=== PATIENT | female | born 1965 | race Caucasian/White ===

== ENCOUNTER 2016-09-19 18:03 | Emergency (ER) | payer MEDICAID ==
[2016-09-19] MEDS ORDERED: PROMETHAZINE INJ 25 MG in SODIUM CHLORIDE 0.9% 50 ML IV STA (18:30)
[2016-09-19] MEDS ORDERED: SODIUM CHLORIDE 0.9% 1,000 ML IV ONE ×2 (18:30→18:51)
[2016-09-19] MEDS ORDERED: KETOROLAC 30 MG/ML VIAL IVP STA (18:30)
[2016-09-19] MEDS ORDERED: PROMETHAZINE 25 MG/1 ML VIAL ONE (18:51)
[2016-09-19] MEDS ORDERED: SODIUM CHLORIDE 0.9% 50 ML IV ONE (18:51)
[2016-09-19] MEDS ORDERED: KETOROLAC 30 MG/ML VIAL ONE (18:51)
== END 2016-09-19 20:24 | disposition home or self-care (01) ==
DX: R51 Headache (principal); R11.0 Nausea; R09.81 Nasal congestion; R03.0 Elevated blood-pressure reading, without diagnosis of hypertension; F17.200 Nicotine dependence, unspecified, uncomplicated
CPT/HCPCS: 36415; 80048; 83605; 85025; 96365; 96375; 99283; 99284; J7040

== ENCOUNTER 2016-10-19 08:00 | Outpatient (CLI) | payer MEDICAID | END 2016-10-19 08:01 | disposition home or self-care (01) | DX: R30.0 Dysuria (principal) ==

== ENCOUNTER 2016-10-25 10:04 | Outpatient (CLI) | payer MEDICAID | END 2016-10-25 10:05 | disposition home or self-care (01) | DX: E07.9 Disorder of thyroid, unspecified (principal); Z13.220 Encounter for screening for lipoid disorders; R30.0 Dysuria ==

== ENCOUNTER 2016-12-29 11:58 | Outpatient (CLI) | payer MEDICAID | END 2016-12-29 11:59 | disposition home or self-care (01) | LOC: SC 11:58 | PROVIDERS: ATTEND Nurse Practitioner Family | DX: G47.33 Obstructive sleep apnea (adult) (pediatric) (principal) | CPT/HCPCS: 99212; 99214 ==

== ENCOUNTER 2017-03-17 13:24 | Outpatient (CLI) | payer MEDICAID | END 2017-03-17 13:25 | disposition home or self-care (01) | LOC: SC 13:24 | PROVIDERS: ATTEND Nurse Practitioner Family | DX: G47.33 Obstructive sleep apnea (adult) (pediatric) (principal) | CPT/HCPCS: 99212; 99215 ==

== ENCOUNTER 2017-03-23 16:05 | Outpatient (CLI) | payer MEDICAID ==
--- NOTE | 2017-03-24 09:15 | XRAY Report ---
THREE-VIEW THORACIC SPINE: 03/23/2017 CLINICAL INDICATION: Pain. FINDINGS: AP, lateral, swimmer's views of the thoracic spine demonstrate mild degenerative disk dise ase. There is no evidence of fracture. No paraspinal hematoma is seen. IMPRESSION: MILD DEGENERATIVE DISK DISEASE. JOB #: [id number] EXT JOB #:[id number]
--- NOTE | 2017-03-24 09:30 | MRI Report ---
EXAM: MRI THORACIC SPINE WITHOUT CONTRAST EXAM DATE: 03/23/2017 04:57 PM. CLINICAL HISTORY: Thoracic pain when carrying heavy object. COMPARISONS: None. TECHNIQUE: Multiplanar, multisequence T1-weighted and fluid-sensitive sequences of the thoracic spine from C7 to L1 without contrast. Other: None. FINDINGS: Spinal Cord: No signal abnormality in the visualized spinal cord. Alignment: Normal. No scoliosis or spondylolisthesis. Bone Marrow: Small vertebral hemangiomas in T6 and T10 with T1 hyperintensity. No suspicious bony les ion. No fracture or marrow edema. Disk Levels/Facets: C7-T1: Unremarkable. T1-T2: Unremarkable. T2-T3: Unremarkable. T3-T4: Unremarkable. T4-T5: Unremarkable. T5-T6: Unremarkable. T6-T7: Unremarkable. T7-T8: Unremarkable. T8-T9: Unremarkable. T9-T10: Unremarkable. T10-T11: Unremarkable. T11-T12: Unremarkable. T12-L1: Unremarkable. Multiple small foraminal nerve sheath cysts at T4-T5, T6-T7, T9-T10, and bilateral T10-T11 and T11-T1 2. Musculature: Normal. No edema or fatty atrophy. Other: The visualized lungs, mediastinum, and abdominal cavity are unremarkable. IMPRESSION: 1. No fracture, marrow edema or suspicious bony lesion. 2. No disk herniation. No spinal or foraminal stenosis. 3. Multiple small foraminal nerve sheath cysts. [facility] Referring Provider Line: [phone] SITE ID: [id number]
== END 2017-03-23 16:06 | disposition home or self-care (01) ==
LOC: DI 16:05
PROVIDERS: ATTEND Anesthesiology Pain Medicine
DX: M51.34 Other intervertebral disc degeneration, thoracic region (principal)
CPT/HCPCS: 72072; 72146

== ENCOUNTER 2017-05-04 17:12 | Outpatient (CLI) | payer MEDICAID ==
[2017-05-04 17:47] LABS: CHOL/HDL RATIO 3.6 (<4.4); CHOLESTEROL 207 mg/dL; HDL CHOLESTEROL 57 mg/dL; LDL/HDL RATIO 2.4 (<4.4); TRIGLYCERIDES 79 mg/dL; VLDL CHOLESTEROL 16 mg/dL
[2017-05-04 17:59] LABS: THYROID STIMULATING HORMONE 1.37 uIU/mL (0.34-5.60)
== END 2017-05-04 17:13 | disposition home or self-care (01) ==
LOC: LAB 17:12
PROVIDERS: ATTEND Nurse Practitioner Family
DX: E78.5 Hyperlipidemia, unspecified (principal); E07.9 Disorder of thyroid, unspecified
CPT/HCPCS: 36415; 80061; 84439; 84443

== ENCOUNTER 2017-05-07 18:13 | Emergency (ER) | payer MEDICAID ==
[2017-05-07 18:41] LABS: BILIRUBIN,URINE NEGATIVE (NEGATIVE); PH,URINE 5.5 PH (5.0-7.5)
[2017-05-07 18:48] LABS: UA CHARGE (STRIP ONLY) YES; UR CULTURE IF IND NOT INDICATED
[2017-05-07] MEDS ORDERED: cephALEXin 250 MG CAPSULE PO STA (19:22)
--- NOTE | 2017-05-07 19:24 | ED Physician Documentation ---
History of Present Illness - Stated complaint Stated Complaint: FEMALE - Chief complaint Chief Complaint: General - History obtained from History obtained from: Patient, Family - History of Present Illness Timing: How many days ago (2) Pain level max: 0 Pain level now: 0 Improved by: nothing Worsened by: urinating - Additonal information Additional information: dysuria, frequency for 2 days. States feels like prior UTI. history of bladder sling in the past. Review of Systems Ten Systems: 10 systems reviewed and negative Constitutional: denies: Fever, Chills Ears: denies: Ear pain Nose: denies: Rhinorrhea / runny nose, Congestion Throat: denies: Sore throat Cardiac: denies: Chest pain / pressure Respiratory: denies: Cough GI: denies: Abdominal Pain, Nausea, Vomiting, Diarrhea Skin: denies: Rash Musculoskeletal: denies: Neck pain, Back pain Neurologic: denies: Headache PD PAST MEDICAL HISTORY - Past Medical History Past Medical History: Yes Cardiovascular: Hypertension Respiratory: Other Neuro: Headache/migraine Endocrine/Autoimmune: HyPOthyroidism GI: None 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 : 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 HEENT: Macular degeneration Psych: Depression, Anxiety, Bipolar disorder Musculoskeletal: Fibromyalgia, Osteoporosis Derm: None - Past Surgical History Past Surgical History: Yes General: Cholecystectomy Ortho: Carpal Tunnel surgery /LABORER PIPELINES: Hysterectomy, Oophrectomy, Mastectomy HEENT: Tonsil/Adenoidectomy - Present Medications Home Medications: Ambulatory Orders Medication Instructions Recorded Confirmed Potassium Chloride [K-Dur] 20 meq PO DAILY 12/07/12 05/07/17 Albuterol Sulfate [Proair Hfa] 2 puffs INH Q4H PRN 07/14/15 05/07/17 Dextroamphetamine/Amphetamine 30 mg PO DAILY 07/14/15 05/07/17 [Adderall Xr 30 mg Capsule] EPINEPHrine [Epinephrine] 0.3 mg IM ONCE PRN 07/14/15 05/07/17 Gabapentin 300 mg PO DAILY 07/14/15 05/07/17 Levothyroxine Sodium 112 mcg PO AC 07/14/15 05/07/17 Metoprolol Tartrate 25 mg PO BID 07/14/15 05/07/17 Oxybutynin [Ditropan] 5 mg PO BID PRN 07/14/15 05/07/17 Spironolactone 50 mg PO DAILY 07/14/15 05/07/17 Venlafaxine HCl [Effexor Xr] 150 mg PO BID 07/14/15 05/07/17 lamoTRIgine [Lamictal] 200 mg PO QPM 07/14/15 05/07/17 Exemestane [Aromasin] 25 mg PO QPM 07/15/15 05/07/17 Bupropion HCl [Wellbutrin] 100 mg PO DAILY 12/29/15 05/07/17 Dextroamphetamine/Amphetamine 10 mg PO DAILY PRN 04/26/16 05/07/17 [Adderall 10 mg Tablet] Ondansetron HCl [Ondansetron HCl] 8 mg PO QPM PRN 04/30/16 05/07/17 oxyCODONE [Roxicodone] 10 mg PO QID #40 tablet 06/12/16 05/07/17 Butalb/Acetaminophen/Caffeine 1 each PO Q4H PRN #15 capsule 09/19/16 05/07/17 [Fioricet 50-300-40 mg Capsule] Omeprazole 1 tab PO DAILY 09/19/16 05/07/17 Cephalexin [Keflex] 500 mg PO Q6H #20 capsule 05/07/17 - Allergies Allergies/Adverse Reactions: Allergies Allergy/AdvReac Type Severity Reaction Status Date / Time prochlorperazine edisylate * Allergy Severe Hallucinati Verified 05/07/17 18:21 [From Compazine] ons prochlorperazine maleate * Allergy Severe Hallucinati Verified 05/07/17 18:21 [From Compazine] ons Sulfa (Sulfonamide Allergy Severe Hives Verified 05/07/17 18:21 Antibiotics) tetracycline [Tetracycline] Allergy Severe Blisters Verified 05/07/17 18:21 sumatriptan [From Imitrex] AdvReac Severe Chest Verified 05/07/17 18:21 Pain/Anxiety sumatriptan succinate * AdvReac Severe Chest Verified 05/07/17 18:21 [From Imitrex] Pain/Anxiety latex AdvReac Itching Verified 05/07/17 18:21 - Social History Does the pt smoke?: Yes Smoking Status: Current every day smoker Does the pt drink ETOH?: Yes Does the pt have substance abuse?: Yes - Immunizations Immunizations are current?: Yes - POLST Patient has POLST: No PD ED PE NORMAL - Vitals Vital signs reviewed: Yes - General General: Alert and oriented X 3, No acute distress - HEENT HEENT: Moist mucous membranes - Neck Neck: Supple, no meningeal sign - Cardiac Cardiac: RRR, Strong equal pulses - Respiratory Respiratory: No respiratory distress, Clear bilaterally - Abdomen Abdomen: Soft, Non tender, Non distended - Back Back: No CVA TTP, No spinal TTP - Derm Derm: Warm and dry - Neuro Neuro: Alert and oriented X 3 - Psych Psych: Normal mood, Normal affect Results - Vitals Vitals: Vital Signs - 24 hr 05/07/17 05/07/17 18:18 19:31 Temperature 36.4 C L Heart Rate 80 72 Respiratory 16 15 Rate Blood Pressure 129/93 H 128/74 O2 Saturation 99 98 Oxygen O2 Source Room air - Labs Labs: Laboratory Tests 05/07/17 18:30 Urine Color YELLOW Urine Clarity CLEAR Urine pH 5.5 Ur Specific [place] >=1.030 H Urine Protein NEGATIVE Urine Glucose (UA) NEGATIVE Urine Ketones NEGATIVE Urine Occult Blood NEGATIVE Urine Nitrite NEGATIVE Urine Bilirubin NEGATIVE Urine Urobilinogen 0.2 (NORMAL) Ur Leukocyte Esterase NEGATIVE Ur Microscopic Review NOT INDICATED Urine Culture Comments NOT INDICATED PD MEDICAL DECISION MAKING - ED course Complexity details: reviewed results, re-evaluated patient, considered differential, d/w patient, d/w family ED course: Patient is a 51-year-old female with symptoms that are consistent with a UTI. Urinalysis is negative. Will treat based on symptoms and see how she progresses over the next few days. Patient is well-appearing, nontoxic. Afebrile. Denies any vaginal bleeding, discharge or itching. Patient counseled regarding signs and symptoms for which I believe and urgent re-evaluation would be necessary. Patient with good understanding of and agreement to plan and is comfortable going home at this time This document was made in part using voice recognition software. While efforts are made to proofread this document, sound alike and grammatical errors may occur. Departure - Departure Disposition: 01 Home, Self Care Clinical Impression: UTI (urinary tract infection) Qualifiers: Urinary tract infection type: acute cystitis Hematuria presence: without hematuria Qualified Code(s): N30.00 - Acute cystitis without hematuria Condition: Good Instructions: ED UTI Cystitis Female Follow-Up: Anisha Lagunas ARNP [Primary Care Provider] - Within 1 week Prescriptions: Cephalexin [Keflex] 500 mg PO Q6H #20 capsule Comments: Take all antibiotics until gone. Return if you worsen. Discharge Date/Time: 05/07/17 19:32
[2017-05-07 19:31] VITALS: BP 128/74
[2017-05-07] MEDS ORDERED: cephALEXin 250 MG CAPSULE PO ONE (19:32)
== END 2017-05-07 19:32 | disposition home or self-care (01) ==
LOC: ED 18:13
DX: N30.00 Acute cystitis without hematuria (principal); I10 Essential (primary) hypertension; E03.9 Hypothyroidism, unspecified; M79.7 Fibromyalgia; Z85.3 Personal history of malignant neoplasm of breast; Z90.10 Acquired absence of unspecified breast and nipple; F17.200 Nicotine dependence, unspecified, uncomplicated
CPT/HCPCS: 81003; 99283; A9270; 81001; 87086

== ENCOUNTER 2017-06-21 13:19 | Outpatient (CLI) | payer MEDICAID | END 2017-06-21 13:20 | disposition home or self-care (01) | LOC: SC 13:19 | PROVIDERS: ATTEND Nurse Practitioner Family | DX: G47.33 Obstructive sleep apnea (adult) (pediatric) (principal) | CPT/HCPCS: 99212; 99214 ==

== ENCOUNTER 2018-12-11 14:57 | Outpatient (CLI) | payer MEDICAID ==
[2018-12-11 18:19] LABS: THYROID STIMULATING HORMONE 0.35 uIU/mL (0.34-5.60)
[2018-12-11 18:21] LABS: FREE T4 (FREE THYROXINE) 0.85 ng/dL (0.58-1.64)
== END 2018-12-11 14:58 | disposition home or self-care (01) ==
LOC: LAB.F 14:57
PROVIDERS: ATTEND Physician Assistant Medical
DX: E06.3 Autoimmune thyroiditis (principal)
CPT/HCPCS: 36415; 84439; 84443; 84481

== ENCOUNTER 2019-01-23 00:28 | Outpatient (CLI) | payer MEDICAID | END 2019-01-23 00:29 | disposition critical access hospital (66) | LOC: EMS 00:28 | PROVIDERS: ATTEND Surgery | DX: R53.1 Weakness (principal); R10.9 Unspecified abdominal pain; R11.2 Nausea with vomiting, unspecified; R19.7 Diarrhea, unspecified | CPT/HCPCS: A0425; A0427; A0999 ==

== ENCOUNTER 2019-01-23 00:40 | Observation (INO) | payer MEDICAID ==
[2019-01-23] MEDS ORDERED: SODIUM CHLORIDE 0.9% 1,000 ML IV ONE ×2 (01:31→02:27)
--- NOTE | 2019-01-23 01:31 | ED Physician Documentation ---
PD HPI SYNCOPE - Stated complaint Stated Complaint: N/V/D ABD PAIN - Chief complaint Chief Complaint: Abd Pain - History obtained from History obtained from: Patient - History of Present Illness Witnessed: Witnessed Timing - onset: How many days ago (3-4) Duration: Seconds, Minutes Preceding symptoms: Nausea / vomiting, Light headed, Generalized weakness. No: Headache (not particularly with the near syncope, but has had some headache for few days), Chest pain Associated symptoms: Headache (mild headache for 3-4 days). No: Chest pain, Dyspnea, Abdominal pain Contributing factors: Recent med change (She is seen by a psychiatrist 5 days ago who changed her medications with changing of her diagnosis to primarily PTSD with anxiety and not as much on the depression. He had her stop her bupropion and increased her prazosin to 5 mg from 2 mg. This was 5 days ago when she started having symptoms of malaise, headache, nausea and also lightheadedness initially with standing and walking but then more randomly. She does started with intermittent slower cramps and diarrhea today. No vomiting per se and she states she was still taking oral intake so did not feel that she was significantly dehydrated.). No: Decreased PO intake, Noxious stimulae Injury occurred: No: Fell, Head injury, Neck injury Similar symptoms before: Has not had sx before Recently seen: Clinic (see above) Review of Systems Constitutional: reports: Myalgias, Fatigue. denies: Fever Nose: denies: Rhinorrhea / runny nose, Congestion Throat: denies: Sore throat Cardiac: denies: Chest pain / pressure, Palpitations Respiratory: denies: Dyspnea, Cough GI: reports: Nausea, Diarrhea (just today, watery/loose with lower abd cramps.). denies: Vomiting : denies: Dysuria Skin: denies: Rash, Lesions Neurologic: reports: Generalized weakness, Near syncope, Headache (mild for several days). 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3 mg IM ONCE PRN 07/14/15 05/15/18 Gabapentin 300 mg PO DAILY 07/14/15 05/15/18 Levothyroxine Sodium 112 mcg PO AC 07/14/15 05/15/18 Metoprolol Tartrate 25 mg PO BID 07/14/15 05/15/18 Oxybutynin [Ditropan] 5 mg PO BID PRN 07/14/15 05/15/18 Spironolactone 50 mg PO DAILY 07/14/15 05/15/18 Venlafaxine HCl [Effexor Xr] 150 mg PO BID 07/14/15 05/15/18 Ondansetron HCl 8 mg PO QPM PRN 04/30/16 05/15/18 Butalb/Acetaminophen/Caffeine 1 each PO Q4H PRN #15 capsule 09/19/16 05/15/18 [Fioricet 50-300-40 mg Capsule] Denosumab [Prolia] 60 mg INJ Q6M 05/16/17 05/15/18 Pantoprazole Sodium [Protonix] 40 mg PO 01/23/19 - Allergies Allergies/Adverse Reactions: Allergies Allergy/AdvReac Type Severity Reaction Status Date / Time prochlorperazine edisylate * Allergy Severe Hallucinati Verified 01/23/19 01:14 [From Compazine] ons prochlorperazine maleate * Allergy Severe Hallucinati Verified 01/23/19 01:14 [From Compazine] ons Sulfa (Sulfonamide Allergy Severe Hives Verified 01/23/19 01:14 Antibiotics) tetracycline [Tetracycline] Allergy Severe Blisters Verified 01/23/19 01:14 bee venom protein (honey bee) Allergy Anaphylaxis Verified 01/23/19 01:14 sumatriptan [From Imitrex] AdvReac Severe Chest Verified 01/23/19 01:14 Pain/Anxiety sumatriptan succinate * AdvReac Severe Chest Verified 01/23/19 01:14 [From Imitrex] Pain/Anxiety latex AdvReac Itching Verified 01/23/19 01:14 - Social History Does the pt smoke?: Yes Smoking Status: Current every day smoker Does the pt drink ETOH?: Yes Does the pt have substance abuse?: Yes - Family History Family history: reports: Non contributory - Immunizations Immunizations are current?: Yes - POLST Patient has POLST: No PD ED PE NORMAL - Vitals Vital signs reviewed: Yes (bradycardic and hypotensive, improved BP with IV fluids.) - General General: Alert and oriented X 3, Well developed/nourished - HEENT HEENT: Ears normal, Pharynx benign - Neck Neck: Supple, no meningeal sign, No adenopathy - Cardiac Cardiac: No murmur, No rub. No: RRR (regular but bradycardic) - Respiratory Respiratory: Clear bilaterally - Abdomen Abdomen: Soft, Non tender, Non distended, No organomegaly. No: Normal bowel sounds (increased diffusely) - Female Female : Deferred - Rectal Rectal: Deferred, Other (she had bowel movement into commode with watery/mealy foul smelling that has specks of red blood, testing guiac positive. ) - Back Back: No CVA TTP - Derm Derm: Normal color, Warm and dry, No rash - Extremities Extremities: No tenderness to palpate, Normal ROM s pain, No edema, No calf tenderness / cord - Neuro Neuro: Alert and oriented X 3, No motor deficit, Normal speech Eye Opening: Spontaneous Motor: Obeys Commands Verbal: Oriented GCS Score: 15 Results - Vitals Vitals: Vital Signs - 24 hr 01/23/19 01/23/19 01/23/19 00:42 00:50 00:58 Temperature 34.7 C L Heart Rate 50 L 48 L 53 L Respiratory 12 Rate Blood Pressure 78/64 L 84/53 L 87/53 L O2 Saturation 96 01/23/19 01/23/19 01/23/19 01:00 01:15 01:25 Temperature 34.5 C L Heart Rate 51 L 49 L Respiratory 10 L Rate Blood Pressure 81/56 L 88/53 L O2 Saturation 99 01/23/19 01/23/19 01/23/19 01:30 01:53 02:00 Temperature Heart Rate 46 L 60 52 L Respiratory 15 15 15 Rate Blood Pressure 85/57 L 99/61 96/57 L O2 Saturation 95 100 01/23/19 01/23/19 02:30 03:00 Temperature 34.5 C L Heart Rate 46 L 61 Respiratory 16 16 Rate Blood Pressure 111/69 129/66 O2 Saturation 100 100 Oxygen O2 Source Room air - Labs Labs: Laboratory Tests 01/23/19 01/23/19 01/23/19 00:55 00:55 00:55 WBC 8.1 RBC 3.82 L Hgb 11.7 L Hct 35.9 L MCV 94.0 MCH 30.6 MCHC 32.6 RDW 13.2 Plt Count 323 MPV 9.8 Neut # (Auto) 4.3 Lymph # (Auto) 3.3 [place] # (Auto) 0.5 Eos # (Auto) 0.0 Baso # (Auto) 0.0 Absolute Nucleated RBC 0.00 Nucleated RBC % 0.0 Sodium 140 Potassium 3.5 Chloride 108 Carbon Dioxide 22 Anion Gap 10.0 BUN 18 Creatinine 0.9 Estimated GFR (MDRD) 65 L Glucose 96 Lactic Acid Calcium 8.0 L Magnesium 1.8 Total Bilirubin 0.3 AST 14 ALT 16 Alkaline Phosphatase 58 Troponin I < 0.04 B-Natriuretic Peptide Total Protein 6.3 L Albumin 3.4 Globulin 2.9 Albumin/Globulin Ratio 1.2 Lipase 28 Urine Color Urine Clarity Urine pH Ur Specific [place] Urine Protein Urine Glucose (UA) Urine Ketones Urine Occult Blood Urine Nitrite Urine Bilirubin Urine Urobilinogen Ur Leukocyte Esterase Ur Microscopic Review Urine Culture Comments 01/23/19 01/23/19 01/23/19 00:55 01:43 02:05 WBC RBC Hgb Hct MCV MCH MCHC RDW Plt Count MPV Neut # (Auto) Lymph # (Auto) [place] # (Auto) Eos # (Auto) Baso # (Auto) Absolute Nucleated RBC Nucleated RBC % Sodium Potassium Chloride Carbon Dioxide Anion Gap BUN Creatinine Estimated GFR (MDRD) Glucose Lactic Acid 0.7 Calcium Magnesium Total Bilirubin AST ALT Alkaline Phosphatase Troponin I B-Natriuretic Peptide 10 Total Protein Albumin Globulin Albumin/Globulin Ratio Lipase Urine Color YELLOW Urine Clarity CLEAR Urine pH 6.0 Ur Specific [place] 1.020 Urine Protein TRACE Urine Glucose (UA) NEGATIVE Urine Ketones TRACE Urine Occult Blood NEGATIVE Urine Nitrite NEGATIVE Urine Bilirubin NEGATIVE Urine Urobilinogen 1 (NORMAL) Ur Leukocyte Esterase NEGATIVE Ur Microscopic Review NOT INDICATED Urine Culture Comments NOT INDICATED PD MEDICAL DECISION MAKING - ED course Complexity details: re-evaluated patient (Blood pressure is improved with IV fluids. It still went low when she got up to go the bathroom. Her heart rate still is wavering from 40s to 60s. She is now having a bloody diarrhea as well. I do not feel that she is stable for discharge and still needs active treatment and so I talked with the hospitalist regarding assuming care in the hospital.), considered differential (Her symptoms started a day or so after medication changes of stopping bupropion and increasing prazosin. I presume her provider intended her to taper the bupropion but she said his instructions were not clear and she heard it as just stop it. Her symptoms can correspond with some serotonin withdrawal and then also more so with prazosin side effect. Checking on up-to-date, the prazosin will have certainly orthostatic hypotension but also lists less than 1% incidence of bradycardia. Neither medication should cause diarrhea and that is just started today. She has been likely hypotensive based on her symptoms. However she does not have abdominal tenderness and only mild cramping and her lactate is normal, so I do not think it is an ischemic colitis. We will test for bacterial causes. We could add some probiotics for now. No signs of sepsis. Her diarrheal output does not sound significant enough of a GI loss to account for the hypotension though certainly could be contributing. Will check EKG and troponins as well.), d/w patient Departure - Departure Disposition: 66 [facility] DC/Xfer Clinical Impression: Acute diarrhea, Near syncope Hypotension Qualifiers: Hypotension type: unspecified hypotension type Qualified Code(s): I95.9 - Hypotension, unspecified Serotonin withdrawal syndrome Qualifiers: Encounter type: initial encounter Qualified Code(s): T43.205A - Adverse effect of unspecified antidepressants, initial encounter Prazosin adverse reaction Qualifiers: Encounter type: initial encounter Qualified Code(s): T44.6X5A - Adverse effect of alpha-adrenoreceptor antagonists, initial encounter Condition: Stable Record reviewed to determine appropriate education?: Yes
[2019-01-23] MEDS ORDERED: buPROPion SR 100 MG TABLET PO STA (01:33)
[2019-01-23 01:38] LABS: BASOPHILS % (AUTO) 0.4 %; EOSINOPHILS % (AUTO) 0.1 %; HGB - HEMOGLOBIN 11.7 g/dL (12.0-16.0); LYMPHOCYTES # (AUTO) 3.3 10^3/uL (1.5-3.5); LYMPHOCYTES % (AUTO) 40.6 %; MEAN CORPUSCULAR HEMOGLOBIN 30.6 pg (27.0-31.0); MEAN CORPUSCULAR HGB CONC 32.6 g/dL (32.0-36.0); MEAN PLATELET VOLUME 9.8 fL (7.9-10.8); MONOCYTES # (AUTO) 0.5 10^3/uL (0.0-1.0); MONOCYTES % (AUTO) 5.5 %; NEUTROPHILS # (AUTO) 4.3 10^3/uL (1.5-6.6); PLT - PLATELET COUNT 323 10^3/uL (130-450); RED BLOOD COUNT 3.82 10^6/uL (4.20-5.40); RED CELL DISTRIBUTION WIDTH 13.2 % (12.0-15.0); WHITE BLOOD COUNT 8.1 x10^3/uL (4.8-10.8)
[2019-01-23 01:49] LABS: ALBUMIN 3.4 g/dL (3.2-5.5); ALBUMIN/GLOBULIN RATIO 1.2 (1.0-2.2); BILIRUBIN,TOTAL 0.3 mg/dL (0.2-1.0); CREATININE 0.9 mg/dL (0.4-1.0); MAGNESIUM 1.8 mg/dL (1.7-2.8); TOTAL PROTEIN 6.3 g/dL (6.7-8.2)
[2019-01-23 02:23] LABS: GLUCOSE, URINE (UA) NEGATIVE (NEGATIVE); KETONES,URINE (UA) TRACE mg/dL (NEGATIVE); LEUKOCYTE ESTERASE, URINE NEGATIVE (NEGATIVE); NITRITE,URINE NEGATIVE (NEGATIVE); OCCULT BLOOD,URINE NEGATIVE (NEGATIVE); PROTEIN,URINE TRACE mg/dL (NEGATIVE); UROBILINOGEN,URINE 1 (NORMAL) E.U./dL (NORMAL)
[2019-01-23 02:27] LABS: BILIRUBIN,URINE NEGATIVE (NEGATIVE); CLARITY,URINE CLEAR (CLEAR); ICTOTEST,URINE NEGATIVE
[2019-01-23] MEDS ORDERED: SODIUM CHLORIDE FLUSH 0.9% 10 ML SYRINGE IVP PRN (03:02)
[2019-01-23] MEDS ORDERED: ONDANSETRON 4 MG/2 ML VIAL IVP PRN (03:02)
[2019-01-23] MEDS ORDERED: POTASSIUM CHLORIDE 20 MEQ TABLET PO STA (03:06)
--- NOTE | 2019-01-23 03:49 | HISTORY & PHYSICAL EXAMINATION ---
Chief Complaint - Chief Complaint Chief Complaint: Dizziness History of Present Illness - Admitted From Admitted From:: Home - History Obtained From Records Reviewed: Yes History obtained from: Patient, ER Physician, EMR - History of Present Illness HPI Comment/Other: This is a pleasant 53 year old female with a past medical history significant for PTSD, Depression, Anxiety, Hypertension, and breast cancer in remission who presents from home complaining of dizziness and lightheadedness for the last three days. She reports she was doing well until Tuesday when she saw her Psychiatrist so changed some of her medications. She was told to discontinue Wellbutrin 300mg daily which she did without a taper. Her Prazosin was also increased from 2mg daily to 5mg daily. The following day she began to have random episodes of lightheadedness that would occur with ambulation but also even at rest. She continued to take her home antihypertensives which include Lisinopril, Metoprolol, and Aldactone. She normally checks her blood pressure at home but has not over the last few days. She reports it normally ranges in the 130's systolic. She denies chest pain, dyspnea, palpitations, vertigo, and syncope. She reports no recent infection or cold like symptoms. Denies dysuria, urgency, and frequency. She does complain of headaches that have been a little more prominent these past few days. She also reports an episode of diarrhea today but that it just began this evening after she had a bowl of cereal even though she knows she is lactose intolerant. The diarrhea and abdominal cramping started shortly after the meal. She reports no recent antibiotic use. She did not that her stool was blood tinged today. She does have a history of FAP. Her last colonoscopy was 5 years ago and she reports no history of prior polyps. 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 In the ER, she was found to be hypothermic with a temperature of 34.5, hypotensive with a blood pressure of 85/57 and bradycardic with a heart rate of 46. Her labs were unremarkable. She was given IV fluids with improvement of her blood pressure to 111/69. The patient will be admitted for further workup and management of her hypotension. History - Past Medical History Cardiovascular: reports: Hypertension Neuro: reports: Migraines Endocrine/Autoimmune: reports: HyPOthyroidism GI: reports: Other (FAP) LEGAL EDITOR: reports: Breast cancer : reports: None HEENT: reports: Macular degeneration Psych: reports: Depression, Anxiety, Post traumatic stress disorder Musculoskeletal: reports: Fibromyalgia, Osteoporosis Derm: reports: None MRSA Hx?: Yes - Past Surgical History General: reports: Cholecystectomy Ortho: reports: Carpal Tunnel surgery /LEGAL EDITOR: reports: Hysterectomy, Oophrectomy, Mastectomy HEENT: reports: Tonsil/Adenoidectomy - Family & Social History Family History Comment/Other: She has a family history significant for hypertension as well as FAP. Her son has amin syndrome. Another family member has turcot syndrome. Living arrangement: At home Living Situation: Alone Social History Notes: She has lived on [facility] since she was 13 years old. 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 She is no longer employed. She lives alone in [place]. She does not smoke. Drinks alcohol every few months. She does use marijuana. - Substance History Use: Uses substance without health or social issues: Cannabis - POLST Patient has POLST: No Meds/Allgy - Home Medications Home Medications: Ambulatory Orders Medication Instructions Recorded Confirmed Potassium Chloride [K-Dur] 20 meq PO DAILY 12/07/12 05/15/18 Albuterol Sulfate [Proair Hfa] 2 puffs INH Q4H PRN 07/14/15 05/15/18 EPINEPHrine [Epinephrine] 0.3 mg IM ONCE PRN 07/14/15 05/15/18 Gabapentin 300 mg PO DAILY 07/14/15 05/15/18 Levothyroxine Sodium 112 mcg PO AC 07/14/15 05/15/18 Metoprolol Tartrate 25 mg PO BID 07/14/15 05/15/18 Oxybutynin [Ditropan] 5 mg PO BID PRN 07/14/15 05/15/18 Spironolactone 50 mg PO DAILY 07/14/15 05/15/18 Venlafaxine HCl [Effexor Xr] 150 mg PO BID 07/14/15 05/15/18 Ondansetron HCl 8 mg PO QPM PRN 04/30/16 05/15/18 Butalb/Acetaminophen/Caffeine 1 each PO Q4H PRN #15 capsule 09/19/16 05/15/18 [Fioricet 50-300-40 mg Capsule] Denosumab [Prolia] 60 mg INJ Q6M 05/16/17 05/15/18 Pantoprazole Sodium [Protonix] 40 mg PO 01/23/19 - Allergies Allergies/Adverse Reactions: Allergies Allergy/AdvReac Type Severity Reaction Status Date / Time prochlorperazine edisylate * Allergy Severe Hallucinati Verified 01/23/19 01:14 [From Compazine] ons prochlorperazine maleate * Allergy Severe Hallucinati Verified 01/23/19 01:14 [From Compazine] ons Sulfa (Sulfonamide Allergy Severe Hives Verified 01/23/19 01:14 Antibiotics) tetracycline [Tetracycline] Allergy Severe Blisters Verified 01/23/19 01:14 bee venom protein (honey bee) Allergy Anaphylaxis Verified 01/23/19 01:14 sumatriptan [From Imitrex] AdvReac Severe Chest Verified 01/23/19 01:14 Pain/Anxiety sumatriptan succinate * AdvReac Severe Chest Verified 01/23/19 01:14 [From Imitrex] Pain/Anxiety latex AdvReac Itching Verified 01/23/19 01:14 Review of Systems - Constitutional Constitutional: reports: Fatigue, Malaise, Weakness. denies: Fever, Chills - Cardiovascular Cariovascular: reports: Lightheadedness. denies: Palpitations, Chest pain, Syncope, Exertional dyspnea, Decr. exercise tolerance - Respiratory Respiratory: denies: Cough, SOB at rest, SOB with exertion - Gastrointestinal Gastrointestinal: reports: Abdominal pain, Diarrhea, Change in bowel habits, Bloody stools, Nausea, Bloating. denies: Abdominal distention, Constipation, Vomiting - Genitourinary Genitourinary: denies: Dysuria, Frequency, Urgency - Integumentary Integumentary: denies: Rash - Neurological Neurological: reports: General weakness, Headache, Dizziness, Numbness. denies: Focal weakness - Psychiatric Psychiatric: reports: Depression, Anxiety. denies: Suicidal - All Other Systems All Other Systems: reports: Reviewed and negative Prior Level of Functionality: Independent with ADL's. Exam - Vital Signs Reviewed Vital Signs: Yes Vital Signs: Vital Signs x48h Temp Pulse Resp BP Pulse Ox 01/23/19 03:00 34.5 C L 61 16 129/66 100 01/23/19 02:30 46 L 16 111/69 100 01/23/19 02:00 52 L 15 96/57 L 100 01/23/19 01:53 60 15 99/61 01/23/19 01:30 46 L 15 85/57 L 95 01/23/19 01:25 34.5 C L 01/23/19 01:15 49 L 10 L 88/53 L 99 01/23/19 01:00 51 L 81/56 L 01/23/19 00:58 53 L 87/53 L 01/23/19 00:50 48 L 84/53 L 01/23/19 00:42 34.7 C L 50 L 12 78/64 L 96 - Physical Exam General Appearance: positive: No acute distress, Alert Eyes Bilateral: positive: Normal inspection, Conjunctivae nml ENT: positive: ENT inspection nml, No signs of dehydration. negative: Dry mucous membranes Neck: positive: Nml inspection Respiratory: positive: No respiratory distress, Breath sounds nml. negative: Wheezes, Rales, Rhonchi Cardiovascular: positive: No murmur, Bradycardia. negative: Irregularly irregular, Tachycardia, Systolic murmur Abdomen: positive: Non-tender. negative: No distention, Tenderness, Guarding, Rebound Skin: positive: Color nml, No rash, Warm, Dry. negative: Diaphoresis, Pallor Extremities: positive: Non-tender, Full ROM, No pedal edema. negative: Pedal edema Neurologic/Psychiatric: positive: Oriented x3, Motor nml, Sensation nml. negative: Disoriented to person, Disoriented to place, Disoriented to time Conclusion/Plan - Problem List (1) Hypotension Conclusion/Plan: Suspect that her presenting symptoms are secondary to her profound hypotension which is likely due to the increase in her Prazosin dose. She does not appear to have signs of symptoms of infection and so sepsis is less likely. She has responded to IV fluids with improvement in her blood pressure. - Continue IV hydration - Hold home antihypertensives, her medications will need to be adjusted on discharge - Check orthostatics Qualifiers: Hypotension type: unspecified hypotension type Qualified Code(s): I95.9 - Hypotension, unspecified (2) Acute diarrhea Conclusion/Plan: She had an episode of acute diarrhea today which is likely secondary to her lactose intolerance as it immediately occurred after she had a bowl of cereal. Her stool was noted to be blood tinged and this is somewhat concerning given her history of FAP and the fact she has not had a colonoscopy in 5 years. Her hemoglobin does appear to be stable at this time. - Follow up stool cultures that were sent by the ER but suspect the etiology of the diarrhea is non-infectious - Diet as tolerated - She will need outpatient follow up for a colonoscopy and she previously saw Dr. Espinosa who is now at this facility. Will request outpatient follow up with Dr. Espinosa (3) Bradycardia Conclusion/Plan: I suspect that her bradycardia was brought on by her hypothermia and was not helped by the fact she is on a beta ashu at home. Her EKG showed sinus b radycardia with a borderline prolonged NH interval. Her blood pressure has improved and I do not believe the hypotension was related to her bradycardia. - Will check a TSH to rule out hypothyroidism as a cause of her bradycardia - Hold home Metoprolol - Monitor on telemetry (4) Hypothermia Conclusion/Plan: The cause of her hypothermia is not clear as the weather has been warm and she denies the use of air conditioning. She does have hypothyroidism but reports her TSH a few weeks ago was normal and her dose of Synthroid has been stable. Although she does not have any other signs or symptoms of adrenal insufficiency, I wonder if this could be a possible explanation given she the fact she already has history of an autoimmune disease. - Will check morning Cortisol level - Check TSH - Rewarm with blankets and conservative measures (5) Hypothyroidism Conclusion/Plan: She reports this has been stable on her current dose of Synthroid with a recent TSH being within normal limits. - Continue Synthroid - Will check TSH given her presenting symptoms (6) Depression Conclusion/Plan: She has depression and reports her mood has been good recently. Denies suicidal ideations. Was previously on Wellbutrin which was discontinued without taper. She is on Effexor and Lamictal (possible history of bipolar?). The discontinuation of Wellbutrin may have possibly contributed to worsening headaches and nausea. - Will resume Effexor and Lamictal - Outpatient follow up with her Psychiatrist (7) PTSD (post-traumatic stress disorder) Conclusion/Plan: She has history of PTSD and her Prazosin dose was increased from 2mg to 5mg which likely played a part in her hypotension. Her PTSD is stable at this time. She follows with Psychiatry. - Will hold her Prazosin for now but will restart it at a lower dose and titrate as tolerated. She may require discontinuation of her other antihypertensives (8) Hx of breast cancer Conclusion/Plan: She has history of breast cancer and bilateral mastectomy. Currently in remission. Follows with Dr. Elizondo. - Outpatient follow up - Lab Results Lab results reviewed: Yes Romie Bones: 01/23/19 00:55 01/23/19 00:55 - EKG Results EKG Interpreted Independently: Yes EKG Comparison: No prior EKG EKG Findings: Sinus bradycardia. No ST segment changes. Core Measures - Anticipated LOS I expect patient to be DC'd or transferred within 96 hours.: Yes - Issues Hospital Issues and Management Plan: Hypotension likely secondary to medication interaction. Requires IV fluids and medication reconciliation. - DVT/VTE - Prophylaxis VTE/DVT Device ordered at admit?: Yes VTE/DVT Prophylaxis med ordered at admit?: Yes
[2019-01-23] MEDS: SODIUM CHLORIDE FLUSH 0.9% 10 ML SYRINGE IVP SCH ×3 (04:17→23:21)
[2019-01-23] MEDS: LACTATED RINGERS 1,000 ML IV SCH ×2 (04:17→14:05)
[2019-01-23] MEDS ORDERED: ALBUTEROL NEB 2.5 MG/3 ML INH PRN (04:22)
[2019-01-23] MEDS: ACETAMINOPHEN 325 MG TABLET PO PRN ×2 (05:02→21:44)
[2019-01-23] MEDS: PANTOPRAZOLE 40 MG TABLET PO SCH (06:49)
[2019-01-23] MEDS: LEVOTHYROXINE 112 MCG TABLET PO SCH (06:51)
[2019-01-23 08:24] LABS: BASOPHILS % (AUTO) 0.4 %; EOSINOPHILS % (AUTO) 0.1 %; HGB - HEMOGLOBIN 11.8 g/dL (12.0-16.0); LYMPHOCYTES # (AUTO) 2.9 10^3/uL (1.5-3.5); LYMPHOCYTES % (AUTO) 34.8 %; MEAN CORPUSCULAR HEMOGLOBIN 29.9 pg (27.0-31.0); MEAN CORPUSCULAR HGB CONC 32.4 g/dL (32.0-36.0); MEAN CORPUSCULAR VOLUME 92.4 fL (81.0-99.0); MEAN PLATELET VOLUME 9.6 fL (7.9-10.8); MONOCYTES # (AUTO) 0.5 10^3/uL (0.0-1.0); MONOCYTES % (AUTO) 6.4 %; NEUTROPHILS # (AUTO) 4.8 10^3/uL (1.5-6.6); NEUTROPHILS % (AUTO) 58.1 %; PLT - PLATELET COUNT 336 10^3/uL (130-450); RED BLOOD COUNT 3.94 10^6/uL (4.20-5.40); RED CELL DISTRIBUTION WIDTH 13.3 % (12.0-15.0); WHITE BLOOD COUNT 8.2 x10^3/uL (4.8-10.8)
[2019-01-23 08:28] LABS: CALCIUM 9.1 mg/dL (8.5-10.3); CREATININE 0.7 mg/dL (0.4-1.0); MAGNESIUM 2.1 mg/dL (1.7-2.8)
[2019-01-23] MEDS: GABAPENTIN 300 MG CAPSULE PO SCH (08:53)
[2019-01-23] MEDS: lamoTRIgine 100 MG TABLET PO SCH (08:53)
[2019-01-23] MEDS: VENLAFAXINE ER 75 MG CAPSULE PO SCH ×2 (08:54→21:42)
[2019-01-23] MEDS ORDERED: ENOXAPARIN 40 MG/0.4 ML SYRINGE SUBQ SCH (09:00)
--- NOTE | 2019-01-23 09:09 | Discharge Plan ---
Discharge Plan Problem Reviewed?: Yes Disposition: Home, Self Care Condition: Stable Prescriptions: Prazosin HCl 2 mg PO DAILY #30 capsule Diet: Regular Activity Restrictions: Activity as Tolerated Shower Restrictions: No Driving Restrictions: No Health Concerns: You presented to our hospital with a history of high blood pressure, depression, PTSD, and had started feeling nauseated, dizzy and very lightheaded. You came to our emergency room. You have stated that your psychiatrist had recently doubled up on your prazosin. We found you to have a very low blood pressure, and a very slow heart rate. We think it is as a direct result from your prazosin and your metoprolol. While in the hospital you also started having bright red blood per rectum. But your hemoglobin and hematocrit, which measures how much blood you have in your body, remained stable. So your blood loss was not severe enough to require transfusion or treatment. Once we held your prazosin and your metoprolol, your blood pressure has come back to normal. We did do other blood test for low blood pressures such as adrenal insufficiency. Spironolactone is a diuretic that can suppress your adrenal glands. Your blood test for adrenal insufficiency showed your cortisol levels to be low. But is it from true adrenal insufficiency or from your spironolactone? Plan of Treatment: . We gave you IV fluids to hydrate you. We stopped your blood pressure medicines while you were here and have slowly resume some of them. We also monitored your hemoglobin and hematocrit. You have stayed stable at 11 g of hemoglobin in spite of your rectal bleeding. Care Goals: 1. Please see your primary care provider in follow-up. ELLY Davis will need to make referrals and check your blood pressure. 2. She will need to refer you to Dr. Mayela Downey for a colonoscopy to evaluate the bright red blood per rectum. You have stated that you have had multiple colonoscopies in the past and they have been negative. Our rectal exam during this day was negative for hemorrhoids. 3. Since it is unclear if your low cortisol level is from spironolactone or true adrenal insufficiency, please have ELLY Clayton refer you to endocrinology. 4. Let your psychiatrist know that we cut your prazosin dose to 2 mg from 5 mg because of the low blood pressure. Assessment: Patient states she understands and will follow thru with care plan. No Smoking: If you smoke, Please STOP! Call for help. Follow-up with: Valerie Hatch PA-C [Provider Admit Priv/Credential] -
[2019-01-23 12:13] LABS: HGB - HEMOGLOBIN 11.3 g/dL (12.0-16.0)
--- NOTE | 2019-01-23 14:13 | XRAY Report ---
Reason: abd pain w bloody diarrhea Procedure Date: 01/23/2019 Accession Number: [id number] / [id number] Procedure: XR - Abdomen 1 View X-Ray CPT Code: 14092 FULL RESULT: EXAM: ABDOMEN RADIOGRAPHY EXAM DATE: 01/23/2019 01:08 PM. CLINICAL HISTORY: Abdominal pain with bloody diarrhea. COMPARISON: None. TECHNIQUE: 1 view. FINDINGS: Bowel Gas Pattern: Within normal limits. No dilated loops. Other: Postsurgical changes are seen over the pelvis. IMPRESSION: Nonobstructive bowel gas pattern. RADIA
[2019-01-23 16:30] LABS: HGB - HEMOGLOBIN 11.7 g/dL (12.0-16.0)
[2019-01-23 17:54] LABS: MUDS CUTOFF CONCENTRATIONS CUTOFF CONC BELOW:
[2019-01-23 18:22] LABS: AMPHETAMINE SCREEN,URINE POSITIVE (NEGATIVE); BENZODIAZEPINES SCREEN, URINE NEGATIVE (NEGATIVE); COCAINE SCREEN URINE NEGATIVE (NEGATIVE); METHADONE SCREEN, URINE NEGATIVE (NEGATIVE); METHAMPHETAMINES SCREEN, URINE NEGATIVE (NEGATIVE); OPIATE SCREEN, URINE NEGATIVE (NEGATIVE); OXYCODONE SCREEN, URINE NEGATIVE (NEGATIVE); PROPOXYPHENE SCREEN, URINE NEGATIVE (NEGATIVE); TRICYCLIC ANTIDEPRESSANT,URINE NEGATIVE (NEGATIVE)
[2019-01-24] MEDS: LACTATED RINGERS 1,000 ML IV SCH (00:46)
[2019-01-24] MEDS: LEVOTHYROXINE 112 MCG TABLET PO SCH (06:15)
[2019-01-24] MEDS: PANTOPRAZOLE 40 MG TABLET PO SCH (06:16)
[2019-01-24] MEDS: ACETAMINOPHEN 325 MG TABLET PO PRN (06:17)
[2019-01-24] MEDS: GABAPENTIN 300 MG CAPSULE PO SCH (09:14)
[2019-01-24] MEDS: VENLAFAXINE ER 75 MG CAPSULE PO SCH (09:14)
[2019-01-24] MEDS: lamoTRIgine 100 MG TABLET PO SCH (09:14)
[2019-01-24] MEDS: SODIUM CHLORIDE FLUSH 0.9% 10 ML SYRINGE IVP SCH (09:26)
[2019-01-24 12:46] VITALS: BP 137/79
--- NOTE | 2019-02-01 16:42 | DISCHARGE SUMMARY ---
Physician: Mary Alice Siu MD DATE OF ADMISSION: 01/23/2019 DATE OF DISCHARGE: 01/24/2019 DISCHARGE DIAGNOSES 1. Hypotension. 2. Bloody diarrhea. 3. Bradycardia. 4. Hypothermia. 5. Hypothyroidism. 6. Major depressive disorder. 7. Posttraumatic stress disorder. 8. Personal history of malignant neoplasm of the breast. DISCHARGE MEDICATIONS 1. Albuterol inhaler 2 puffs every 4 hours as needed. 2. Butalbital with acetaminophen 54/300/400 mg every 4 hours as needed. 3. Calcium with vitamin D daily. 4. Prolia 60 mg injection every 6 months. 5. Epinephrine 0.3 mg IM p.r.n. anaphylaxis. 6. Gabapentin 900 mg p.o. b.i.d. 7. Lamictal 200 mg daily. 8. Lansoprazole 15 mg daily. 9. Levothyroxine 125 mcg in the evening. 10. Lisdexamfetamine dimesylate 50 mg capsule daily. 11. Lisinopril 10 mg daily. 12. Metoprolol tartrate 50 mg in the morning and 75 mg in the evening. 13. Zofran 4 mg q.p.m. p.r.n. 14. Ditropan 5 mg daily. 15. Potassium chloride 20 mEq daily. 16. Spironolactone 75 mg daily. 17. Venlafaxine extended release 150 mg daily. 18. Prazosin 2 mg capsule daily. PRINCIPAL PROCEDURES 1. Abdomen plain film, nonobstructive bowel gas pattern seen. 2. Stool culture without salmonella, Shigella, Escherichia coli, Aeromonas, Edwardsiella, Yersinia. No Shiga toxin. No Campylobacter. 3. Blood cultures negative. COURSE: The patient is a 53-year-old female with a past medical history of PTSD, depression, anxiety, hypertension and breast cancer that is in remission, who presents from home complaining of dizziness and lightheadedness for the last 3 days. She was doing well until Tuesday when she saw her psychiatrist. Her psychiatrist changed some of her medications. She was told to discontinue Wellbutrin without taper, and prazosin was increased from 2 mg a day to 5 mg a day. The following day, she began having random episodes of lightheadedness that would occur with ambulation, but also even at rest. She continued to take her home antihypertensives, which included Lisinopril, metoprolol, Aldactone. She normally checks her blood pressure at home, but has not done so over the last few days. Usually ranges in the 130s systolic. She denies chest pain, dyspnea, palpitations, vertigo, syncope. She reports no recent infection or cold-like symptoms. She denies dysuria, urgency, frequency. Headaches have been a little bit more prominent over the last few days. There was an episode of diarrhea today. It started after she had a bowl of cereal with milk and she IS LACTOSE INTOLERANT. The diarrhea and abdominal cramping started shortly after the meal. There is no antibiotic use. She does note that there was blood tinged stool today. She does have a history of familial polyposis, her last colonoscopy was five years ago. She reports no prior history of polyps. 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 HOSPITAL COURSE: She was seen in the emergency room and found to be hypothermic with a temperature of 34.55, hypotensive with a blood pressure of 85/57 and bradycardia with heart rate of 46. Labs were unremarkable. She was given IV fluids with improvement of her blood pressure to 116/69 and she will be admitted for further workup of her hypertension and bloody diarrhea. Hypotension and bradycardia, resolved with holding her medicines. We feel that she developed side effects from her medication, then developed diarrhea, and may have destabilized her even further. The prazosin was most likely the culprit. As such, her prazosin was cut back in half and asked to followup with her psychiatrist. As for the bloody diarrhea, abdominal pain did resolve. She did not have a fever. She did not have an elevated white cell count, hemoglobin stayed stable at 11.7 on admission and was 11.7 at discharge. Lactic acid was 0.7. She is asked to followup with her primary care provider Anisha Lagunas and be referred to Mayela Espinosa for colonoscopy. During her exam, no external hemorrhoids or fissures were noted. The bloody diarrhea is painless, other than the abdominal cramping. Because of the hypotension, we did do a cortisol level. She was slightly low at 4.3, but this patient is on spironolactone. The question is whether she is hypotensive from low cortisol or dehydration. She may need a cortroysin stim test. We have asked her to followup with her primary care provider and be referred to endocrinology. Hypothermia would be related to this. She is asked to followup with psychiatrist because of her major depressive disorder and PTSD and our change of her medications. At discharge, blood pressure was 137/79, pulse 63, temperature 36.9. Orthostatics were done and supine blood pressure was 136/97. Sitting blood pressure 157/98 and standing blood pressure 139/96. She is 16 breaths per minute, 100% on room air. She has normal cardiac and lung exam. Normal belly exam with normal bowel sounds, nontender. She is ambulating freely in the room without any difficulty. TD: 02/01/2019 14:39 ULISES
== END 2019-01-24 14:36 | disposition home or self-care (01) ==
LOC: EDUNIT# → ED 00:40 → MS2 03:02
PROVIDERS: ADMIT Internal Medicine; ATTEND Specialist
DX: I95.2 Hypotension due to drugs (principal); R00.1 Bradycardia, unspecified; T44.6X5A Adverse effect of alpha-adrenoreceptor antagonists, initial encounter; R19.7 Diarrhea, unspecified; K92.1 Melena; T68.XXXA Hypothermia, initial encounter; E03.9 Hypothyroidism, unspecified; F32.9 Major depressive disorder, single episode, unspecified; F43.10 Post-traumatic stress disorder, unspecified; I10 Essential (primary) hypertension; F41.9 Anxiety disorder, unspecified; R42 Dizziness and giddiness; R51 Headache; E73.9 Lactose intolerance, unspecified; Z83.71 Family history of colonic polyps; Z85.3 Personal history of malignant neoplasm of breast
CPT/HCPCS: 36415; 74018; 80048; 80053; 80306; 81003; 82533; 83605; 83690; 83735; 83880; 84443; 84484; 85014; 85018; 85025; 85651; 86141; 87040; 87045; 87046; 87493; 87640; 93005; 96360; 96361; 99284; 99285; A9270; G0378; J7120; 81001; 87086

== ENCOUNTER 2019-02-17 16:56 | Emergency (ER) | payer MEDICAID ==
[2019-02-17] MEDS ORDERED: oxyCODONE 5 MG TABLET PO STA (17:25)
--- NOTE | 2019-02-17 17:27 | ED Physician Documentation ---
PD HPI LOWER EXT INJURY - Stated complaint Stated Complaint: LT LEG NUMB/ROLLED ANKLE - Chief complaint Chief Complaint: Ext Problem - History obtained from History obtained from: Patient - History of Present Illness PD HPI LOW EXT INJURY LOCATION: Left (53-year-old woman with history of degenerative disc disease in the back developed left leg numbness without arm or face numbness 2 nights ago. Because of that she was walking yesterday morning and her leg gave out and she hurt her left ankle. She denies weakness in that extremity. There is some low back pain. No incontinence, no fevers.) Review of Systems Constitutional: denies: Fever, Chills Nose: denies: Rhinorrhea / runny nose, Congestion Cardiac: denies: Chest pain / pressure, Palpitations Respiratory: denies: Dyspnea, Cough GI: denies: Abdominal Pain, Nausea, Vomiting PD PAST MEDICAL HISTORY - Past Medical History Cardiovascular: Hypertension Respiratory: Other Neuro: Migraines Endocrine/Autoimmune: HyPOthyroidism GI: Other (FAP) [employer]OR: Breast cancer : None HEENT: Macular degeneration Psych: Depression, Anxiety, Post traumatic stress disorder Musculoskeletal: Fibromyalgia, Osteoporosis Derm: None - Past Surgical History Past Surgical History: Yes General: Cholecystectomy Ortho: Carpal Tunnel surgery /[employer]OR: Hysterectomy, Oophrectomy, Mastectomy HEENT: Tonsil/Adenoidectomy - Present Medications Home Medications: Ambulatory Orders Medication Instructions Recorded Confirmed Albuterol Sulfate [Proair Hfa 2 puffs INH Q4H PRN 07/14/15 01/23/19 Inhaler] EPINEPHrine [Epinephrine] 0.3 mg IM ONCE PRN 07/14/15 01/23/19 Gabapentin 900 mg PO BID 07/14/15 01/23/19 Metoprolol Tartrate 50 mg PO DAILY 07/14/15 01/23/19 Oxybutynin [Ditropan] 5 mg PO DAILY PRN 07/14/15 01/23/19 Venlafaxine HCl [Effexor Xr] 150 mg PO DAILY 07/14/15 01/23/19 Ondansetron HCl 4 mg PO QPM PRN 04/30/16 01/23/19 Denosumab [Prolia] 60 mg INJ Q6M 05/16/17 01/23/19 Butalb/Acetaminophen/Caffeine 1 cap PO Q4H PRN 01/23/19 01/23/19 [Fioricet 50-300-40 mg Capsule] Calcium Carbonate/Vitamin D3 1 tab PO DAILY 01/23/19 01/23/19 [Calcium 500-Vit D3 200 Tablet] Lansoprazole 15 mg PO DAILY 01/23/19 01/23/19 Levothyroxine [Synthroid] 125 mcg PO DAILY 01/23/19 01/23/19 Lisdexamfetamine Dimesylate 50 mg PO DAILY 01/23/19 01/23/19 [Vyvanse] Lisinopril 10 mg PO QPM 01/23/19 01/23/19 Metoprolol Tartrate 75 mg PO QPM 01/23/19 01/23/19 Potassium Chloride 20 meq PO DAILY 01/23/19 01/23/19 Spironolactone 75 mg PO DAILY 01/23/19 01/23/19 lamoTRIgine [Lamictal] 200 mg PO DAILY 01/23/19 01/23/19 Prazosin HCl 2 mg PO DAILY #30 capsule 01/24/19 Oxycodone HCl/Acetaminophen 1 - 2 each PO Q6H PRN #14 tablet 02/17/19 [Percocet 5-325 mg Tablet] predniSONE [Deltasone] 20 mg PO [id number] #21 tab 02/17/19 - Allergies Allergies/Adverse Reactions: Allergies Allergy/AdvReac Type Severity Reaction Status Date / Time prochlorperazine edisylate * Allergy Severe Hallucinati Verified 02/17/19 17:11 [From Compazine] ons prochlorperazine maleate * Allergy Severe Hallucinati Verified 02/17/19 17:11 [From Compazine] ons Sulfa (Sulfonamide Allergy Severe Hives Verified 02/17/19 17:11 Antibiotics) tetracycline [Tetracycline] Allergy Severe Blisters Verified 02/17/19 17:11 bee venom protein (honey bee) Allergy Anaphylaxis Verified 02/17/19 17:11 sumatriptan [From Imitrex] AdvReac Severe Chest Verified 02/17/19 17:11 Pain/Anxiety sumatriptan succinate * AdvReac Severe Chest Verified 02/17/19 17:11 [From Imitrex] Pain/Anxiety latex AdvReac Itching Verified 02/17/19 17:11 - Social History Does the pt smoke?: Yes Smoking Status: Current every day smoker Does the pt drink ETOH?: Yes Does the pt have substance abuse?: Yes - Immunizations Immunizations are current?: Yes - POLST Patient has POLST: No PD ED PE NORMAL - Vitals Vital signs reviewed: Yes - General General: Alert and oriented X 3, No acute distress - Extremities Extremities: Other (She is tender over the lateral malleolus and proximal fifth metatarsal with swelling on the lateral side. No deformity.) - Neuro Neuro: Alert and oriented X 3, Other (She has no cranial neuropathies, no facial droop or numbness on the face, the left arm is not numb compared to the right. She is mildly but incompletely numb on the left leg, mostly on the medial calf compared to the right. She has normal reflexes though and normal strength.) Results - Vitals Vitals: Vital Signs - 24 hr 02/17/19 02/17/19 17:06 18:32 Temperature 37 C 37 C Heart Rate 64 62 Respiratory 16 12 Rate Blood Pressure 112/72 104/78 O2 Saturation 98 98 Oxygen O2 Source Room air - Rads (name of study) XR L ankle and foot Radiology: EMP read contemporaneously (normal) PD MEDICAL DECISION MAKING - ED course ED course: 53-year-old woman with acute sciatica causing a fall with an ankle and foot injury. There is no evidence of central neurologic defect or cauda equina. Departure - Departure Disposition: 01 Home, Self Care Clinical Impression: Sciatica, left side Sprain of left foot Qualifiers: Encounter type: initial encounter Qualified Code(s): S93.602A - Unspecified sprain of left foot, initial encounter Condition: Good Record reviewed to determine appropriate education?: Yes Instructions: ED Sprain Ankle W X Ray, ED Sciatica Prescriptions: Oxycodone HCl/Acetaminophen [Percocet 5-325 mg Tablet] 1 - 2 each PO Q6H PRN #14 tablet PRN Reason: pain predniSONE [Deltasone] 20 mg PO [id number] #21 tab Comments: Call your doctor to arrange a follow-up appointment, make the next available appointment. In the interim, return anytime if worse or if new symptoms develop.
--- NOTE | 2019-02-17 18:15 | XRAY Report ---
Reason: ankle inj Procedure Date: 02/17/2019 Accession Number: [id number] / [id number] Procedure: XR - Ankle 3 View LT CPT Code: FULL RESULT: EXAM: LEFT ANKLE RADIOGRAPHY EXAM DATE: 02/17/2019 06:00 PM. CLINICAL HISTORY: Left ankle pain. COMPARISON: None. TECHNIQUE: 3 views. FINDINGS: Bones: Normal. No fractures or bone lesions. Joints: Normal. No effusion. No subluxations. The ankle mortise is normally aligned. Soft Tissues: Normal. No soft tissue swelling. IMPRESSION: Normal ankle radiography. RADIA
--- NOTE | 2019-02-17 18:32 | XRAY Report ---
Reason: injury Procedure Date: 02/17/2019 Accession Number: [id number] / [id number] Procedure: XR - Foot 3 View LT CPT Code: FULL RESULT: EXAM: LEFT FOOT RADIOGRAPHY EXAM DATE: 02/17/2019 06:00 PM. CLINICAL HISTORY: Left foot pain. COMPARISON: None. TECHNIQUE: 3 views. FINDINGS: Bones: Normal. No fractures or bone lesions. Joints: Normal. No subluxations. Soft Tissues: Normal. No soft tissue swelling. IMPRESSION: Normal foot radiography. RADIA
[2019-02-17 18:33] VITALS: BP 104/78
[2019-02-17] MEDS ORDERED: oxyCODONE/ACET 5/325 Prepack 4 PO STA (18:38)
== END 2019-02-17 18:56 | disposition home or self-care (01) ==
LOC: ED 16:56
DX: S93.602A Unspecified sprain of left foot, initial encounter (principal); X50.1XXA Overexertion from prolonged static or awkward postures, initial encounter; Y93.01 Activity, walking, marching and hiking; M54.42 Lumbago with sciatica, left side; I10 Essential (primary) hypertension; F17.200 Nicotine dependence, unspecified, uncomplicated
CPT/HCPCS: 73610; 73630; 99283; A9270

== ENCOUNTER 2019-06-03 09:41 | Outpatient (CLI) | payer MEDICAID ==
[2019-06-03] MEDS ORDERED: IOVERSOL 320 100 ML VIAL IVP ONE (09:47)
[2019-06-03] MEDS ORDERED: IOVERSOL 320 50 ML VIAL ONE ×2 (09:47→09:49)
[2019-06-03] MEDS: IOVERSOL 320 100 ML VIAL IVP ONE (11:31)
[2019-06-03] MEDS: IOVERSOL 320 50 ML VIAL PO ONE (11:32)
--- NOTE | 2019-06-04 02:26 | CT Report ---
Reason: RT BREAST CA Procedure Date: 06/03/2019 Accession Number: [id number] / [id number] Procedure: CT - Abdomen/Pelvis W CPT Code: Final Report FULL RESULT: EXAM: CT ABDOMEN AND PELVIS EXAM DATE: 06/03/2019 11:05 AM. CLINICAL HISTORY: RT BREAST CA. COMPARISONS: ABDOMEN/PELVIS W/ 05/12/2015 10:45 AM. TECHNIQUE: Routine helical CT imaging was performed through the abdomen and pelvis. IV contrast: OPTI 320 100ML. Enteric contrast: Yes. Reconstructions: Coronal and sagittal. In accordance with CT protocol optimization, one or more of the following dose reduction techniques were utilized for this exam: automated exposure control, adjustment of mA and/or KV based on patient size, or use of iterative reconstructive technique. FINDINGS: Lung Bases: Unremarkable. Liver: Normal. No masses. Gallbladder/Bile Ducts: Resected Spleen: Normal. Pancreas: Normal. Adrenal Glands: Normal. Kidneys: Normal. No masses or hydronephrosis. Peritoneal Cavity/Bowel: Normal. No free fluid, free air or adenopathy. No masses or acute inflammatory process. There are no inflammatory changes of the colon. Pelvic Organs: The uterus has been resected and there are no discernible adnexal structures. Vasculature: No aneurysms or other significant abnormality. Bones: There is a small focal area of sclerosis in the left posterior aspect of the T11 vertebral body. This is approximate mm in diameter. Other: None. IMPRESSION: 1. No evidence for metastatic disease to the soft tissues of the abdomen and pelvis. 2. Subtle focal area of sclerosis in the left posterior margin of the T11 vertebral body. Significance at this time unknown. RADIA
--- NOTE | 2019-06-04 02:31 | CT Report ---
Reason: RT BREAST CA Procedure Date: 06/03/2019 Accession Number: [id number] / [id number] Procedure: CT - CHEST W CPT Code: Final Report FULL RESULT: EXAM: CT CHEST EXAM DATE: 06/03/2019 11:05 AM. CLINICAL HISTORY: RT BREAST CA. COMPARISONS: ABDOMEN/PELVIS W/ 06/03/2019 11:03 AM. TECHNIQUE: Routine helical CT imaging was performed through the chest. IV contrast: None. Reconstructions: Coronal and sagittal. In accordance with CT protocol optimization, one or more of the following dose reduction techniques were utilized for this exam: automated exposure control, adjustment of mA and/or KV based on patient size, or use of iterative reconstructive technique. FINDINGS: Lungs/Pleura: No nodules, bronchial thickening, consolidation, or edema. Pulmonary vasculature is normal. No pericardial or pleural effusion. No pneumothorax. Mediastinum: Normal. No adenopathy or masses. The heart and great vessels are normal. Bones: As noted on the CT scan of the lumbar spine there is a subtle sclerotic focus in the left posterior margin of T11. As noted on the CT scan of the lumbar spine this measures approximately 8 mm. The bones of the thorax are otherwise unremarkable. Visualized Abdomen: Unremarkable. Other: The breast tissues are fatty replaced and relatively symmetric. The patient's primary lesion is not apparent on this exam. IMPRESSION: 1. No evidence for metastatic lesions to the soft tissues of the chest. 2. Subtle area of sclerosis in the left posterior margin of T11. Significance uncertain at this time. RADIA
== END 2019-06-03 09:42 | disposition home or self-care (01) ==
LOC: DI 09:41
PROVIDERS: ATTEND Internal Medicine Hematology & Oncology
DX: M81.0 Age-related osteoporosis without current pathological fracture (principal); Z85.3 Personal history of malignant neoplasm of breast
CPT/HCPCS: 71260; 74177; Q9967

== ENCOUNTER 2019-12-10 11:06 | Outpatient (CLI) | payer MEDICAID ==
[2019-12-10 18:10] LABS: BASOPHILS % (AUTO) 0.2 %; HGB - HEMOGLOBIN 12.5 g/dL (12.0-16.0); LYMPHOCYTES # (AUTO) 2.7 10^3/uL (1.5-3.5); LYMPHOCYTES % (AUTO) 41.6 %; MEAN CORPUSCULAR HEMOGLOBIN 30.5 pg (27.0-31.0); MEAN CORPUSCULAR HGB CONC 33.1 g/dL (32.0-36.0); MEAN CORPUSCULAR VOLUME 92.2 fL (81.0-99.0); MEAN PLATELET VOLUME 9.6 fL (7.9-10.8); MONOCYTES # (AUTO) 0.4 10^3/uL (0.0-1.0); MONOCYTES % (AUTO) 6.6 %; NEUTROPHILS # (AUTO) 3.3 10^3/uL (1.5-6.6); NEUTROPHILS % (AUTO) 51.3 %; PLT - PLATELET COUNT 367 10^3/uL (130-450); RED CELL DISTRIBUTION WIDTH 13.4 % (12.0-15.0); WHITE BLOOD COUNT 6.4 x10^3/uL (4.8-10.8)
[2019-12-10 18:50] LABS: THYROID STIMULATING HORMONE 0.18 uIU/mL (0.34-5.60)
[2019-12-10 18:52] LABS: FREE T3 2.63 pg/mL (2.5-3.9)
[2019-12-10 18:55] LABS: FREE T4 (FREE THYROXINE) 0.95 ng/dL (0.58-1.64)
[2019-12-10 18:58] LABS: FERRITIN 20.9 ng/mL (11.0-306.8)
[2019-12-10 19:18] LABS: % IRON SATURATION 11 % (20-50); IRON 43 ug/dL (28-170); TOTAL IRON BINDING CAPACITY 386 ug/dL (250-450); TRANSFERRIN 276 mg/dL (192-382)
== END 2019-12-10 23:59 | disposition home or self-care (01) ==
LOC: LAB.WCP 11:06
PROVIDERS: ATTEND Nurse Practitioner
DX: G60.9 Hereditary and idiopathic neuropathy, unspecified (principal); C50.919 Malignant neoplasm of unspecified site of unspecified female breast; F32.9 Major depressive disorder, single episode, unspecified; E06.3 Autoimmune thyroiditis
CPT/HCPCS: 36415; 82728; 83540; 84439; 84443; 84466; 84481; 85025

== ENCOUNTER 2019-12-12 20:56 | Inpatient (IN) | payer MEDICAID ==
[2019-12-12 21:28] LABS: BASOPHILS % (AUTO) 0.3 %; HGB - HEMOGLOBIN 13.9 g/dL (12.0-16.0); LYMPHOCYTES # (AUTO) 1.5 10^3/uL (1.5-3.5); LYMPHOCYTES % (AUTO) 10.8 %; MEAN CORPUSCULAR HEMOGLOBIN 28.7 pg (27.0-31.0); MEAN CORPUSCULAR HGB CONC 32.7 g/dL (32.0-36.0); MEAN CORPUSCULAR VOLUME 87.8 fL (81.0-99.0); MEAN PLATELET VOLUME 8.9 fL (7.9-10.8); MONOCYTES # (AUTO) 0.7 10^3/uL (0.0-1.0); MONOCYTES % (AUTO) 4.6 %; NEUTROPHILS % (AUTO) 83.7 %; PLT - PLATELET COUNT 381 10^3/uL (130-450); RED BLOOD COUNT 4.84 10^6/uL (4.20-5.40); RED CELL DISTRIBUTION WIDTH 13.2 % (12.0-15.0); WHITE BLOOD COUNT 14.3 x10^3/uL (4.8-10.8)
--- NOTE | 2019-12-12 21:38 | ED Physician Documentation ---
PD HPI ABD PAIN - Stated complaint Stated Complaint: RECTAL BLEED/ABD PX/NAUSEA - Chief complaint Chief Complaint: Abd Pain - History obtained from History obtained from: Patient - History of Present Illness Timing - onset: Today (Onset about 130 this afternoon of initially some crampy mid to lower abdominal pain and a large watery diarrhea. Subsequently she is continued with cramping pain and intermittent small bowel movements of dark blood. Her pain has increased considerably this evening with nausea but no vomiting. No) Timing - duration: Hours (8) Timing - details: Abrupt onset, Still present Quality: Cramping, Aching, Pain Location: Periumbilical, LLQ Improved by: No: Vomiting Worsened by: Eating Associated symptoms: Nausea, Diarrhea, Hematochezia, Loss of appetite. No: Fever, Constipation, Weight loss Similar symptoms before: Has not had sx before Recently seen: Not recently seen Review of Systems Constitutional: reports: Myalgias. denies: Fever, Chills Nose: denies: Rhinorrhea / runny nose, Congestion Throat: denies: Sore throat Respiratory: denies: Cough GI: reports: Abdominal Pain, Nausea, Vomiting, Diarrhea (just today). denies: Abdominal Swelling, Constipation : denies: Dysuria, Frequency Skin: denies: Rash Musculoskeletal: denies: Neck pain, Back pain Neurologic: reports: Generalized weakness. denies: Near syncope, Altered mental status, Headache Endocrine: denies: Weight loss Immunocompromised: denies: Immunocompromised PD PAST MEDICAL HISTORY - Past Medical History Cardiovascular: Hypertension Respiratory: Other Neuro: Migraines Endocrine/Autoimmune: HyPOthyroidism GI: Other [employer] UN[employer]: Breast cancer : None HEENT: Macular degeneration Psych: Depression, Anxiety, Post traumatic stress disorder Musculoskeletal: Fibromyalgia, Osteoporosis Derm: None - Past Surgical History Past Surgical History: Yes General: Cholecystectomy Ortho: Carpal Tunnel surgery /[employer] AND UNLOAD: Hysterectomy, Oophrectomy, Mastectomy HEENT: Tonsil/Adenoidectomy - Present Medications Home Medications: Ambulatory Orders Medication Instructions Recorded Confirmed Albuterol Sulfate [Proair Hfa 2 puffs INH Q4H PRN 07/14/15 06/04/19 Inhaler] EPINEPHrine [Epinephrine] 0.3 mg IM ONCE PRN 07/14/15 06/04/19 Gabapentin 900 mg PO BID 07/14/15 06/04/19 Metoprolol Tartrate 50 mg PO DAILY 07/14/15 06/04/19 Oxybutynin [Ditropan] 5 mg PO DAILY PRN 07/14/15 06/04/19 Venlafaxine HCl [Effexor Xr] 150 mg PO DAILY 07/14/15 06/04/19 Ondansetron HCl 4 mg PO QPM PRN 04/30/16 06/04/19 Denosumab [Prolia] 60 mg INJ Q6M 05/16/17 06/04/19 Butalb/Acetaminophen/Caffeine 1 cap PO Q4H PRN 01/23/19 06/04/19 [Fioricet 50-300-40 mg Capsule] Calcium Carbonate/Vitamin D3 1 tab PO DAILY 01/23/19 06/04/19 [Calcium 500-Vit D3 200 Tablet] Lansoprazole 15 mg PO DAILY 01/23/19 06/04/19 Levothyroxine [Synthroid] 125 mcg PO DAILY 01/23/19 06/04/19 Lisdexamfetamine Dimesylate 50 mg PO DAILY 01/23/19 06/04/19 [Vyvanse] Metoprolol Tartrate 75 mg PO QPM 01/23/19 06/04/19 Potassium Chloride 20 meq PO DAILY 01/23/19 06/04/19 Spironolactone 75 mg PO DAILY 01/23/19 06/04/19 lamoTRIgine [Lamictal] 200 mg PO DAILY 01/23/19 06/04/19 lisinopriL [Lisinopril] 10 mg PO QPM 01/23/19 06/04/19 Prazosin HCl 2 mg PO DAILY #30 capsule 01/24/19 06/04/19 Oxycodone HCl/Acetaminophen 1 - 2 each PO Q6H PRN #14 tablet 02/17/19 06/04/19 [Percocet 5-325 mg Tablet] predniSONE [Deltasone] 20 mg PO [id number] #21 tab 02/17/19 06/04/19 - Allergies Allergies/Adverse Reactions: Allergies Allergy/AdvReac Type Severity Reaction Status Date / Time prochlorperazine edisylate * Allergy Severe Hallucinati Verified 12/12/19 21:06 [From Compazine] ons prochlorperazine maleate * Allergy Severe Hallucinati Verified 12/12/19 21:06 [From Compazine] ons Sulfa (Sulfonamide Allergy Severe Hives Verified 12/12/19 21:06 Antibiotics) tetracycline [Tetracycline] Allergy Severe Blisters Verified 12/12/19 21:06 bee venom protein (honey bee) Allergy Anaphylaxis Verified 12/12/19 21:06 sumatriptan [From Imitrex] AdvReac Severe Chest Verified 12/12/19 21:06 Pain/Anxiety sumatriptan succinate * AdvReac Severe Chest Verified 12/12/19 21:06 [From Imitrex] Pain/Anxiety latex AdvReac Itching Verified 12/12/19 21:06 - Social History Does the pt smoke?: Yes Smoking Status: Current every day smoker Does the pt drink ETOH?: Yes Does the pt have substance abuse?: Yes - Immunizations Immunizations are current?: Yes - POLST Patient has POLST: No PD ED PE NORMAL - Vitals Vital signs reviewed: Yes - General General: Alert and oriented X 3, Well developed/nourished, Other (She is in considerable discomfort with her doubled over and holding her lower abdomen.) - HEENT HEENT: Ears normal, Pharynx benign - Neck Neck: Supple, no meningeal sign, No adenopathy - Cardiac Cardiac: RRR, No murmur - Respiratory Respiratory: Clear bilaterally - Abdomen Abdomen: Soft, No organomegaly, Other (She is considerably tender in the mid to left lower abdomen with percussion tenderness and some moderate guarding. There is some distention noted in the lower abdomen but not the upper. The right upper abdomen is not tender. Bowel sounds are present but hypoactive. Rectal exam was deferred but s) - Rectal Rectal: Deferred - Back Back: No CVA TTP - Derm Derm: Normal color, Warm and dry - Extremities Extremities: No edema, No calf tenderness / cord - Neuro Neuro: Alert and oriented X 3, No motor deficit, Normal speech Eye Opening: Spontaneous Motor: Obeys Commands Verbal: Oriented GCS Score: 15 Results - Vitals Vitals: Vital Signs - 24 hr 12/12/19 12/12/19 12/13/19 21:03 23:36 00:00 Temperature 36.7 C Heart Rate 63 81 68 Respiratory 20 17 21 Rate Blood Pressure 146/100 H 129/76 121/96 H O2 Saturation 100 97 100 Oxygen O2 Source Room air - Labs Labs: Laboratory Tests 12/12/19 12/12/19 12/12/19 21:20 21:20 21:20 WBC 14.3 H RBC 4.84 Hgb 13.9 Hct 42.5 MCV 87.8 MCH 28.7 MCHC 32.7 RDW 13.2 Plt Count 381 MPV 8.9 Neut # (Auto) 12.0 H Lymph # (Auto) 1.5 [place] # (Auto) 0.7 Eos # (Auto) 0.0 Baso # (Auto) 0.0 Absolute Nucleated RBC 0.00 Nucleated RBC % 0.0 Sodium 134 L Potassium 3.7 Chloride 98 L Carbon Dioxide 28 Anion Gap 8.0 BUN 22 H Creatinine 0.9 Estimated GFR (MDRD) 65 L Glucose 105 H Calcium 9.4 Total Bilirubin 0.6 AST 25 ALT 16 Alkaline Phosphatase 65 C-Reactive Protein < 1.0 Total Protein 8.0 Albumin 4.4 Globulin 3.6 Albumin/Globulin Ratio 1.2 Lipase 43 TSH Urine Color Urine Clarity Urine pH Ur Specific [place] Urine Protein Urine Glucose (UA) Urine Ketones Urine Occult Blood Urine Nitrite Urine Bilirubin Urine Urobilinogen Ur Leukocyte Esterase Ur Microscopic Review Urine Culture Comments 12/12/19 12/12/19 21:20 21:52 WBC RBC Hgb Hct MCV MCH MCHC RDW Plt Count MPV Neut # (Auto) Lymph # (Auto) [place] # (Auto) Eos # (Auto) Baso # (Auto) Absolute Nucleated RBC Nucleated RBC % Sodium Potassium Chloride Carbon Dioxide Anion Gap BUN Creatinine Estimated GFR (MDRD) Glucose Calcium Total Bilirubin AST ALT Alkaline Phosphatase C-Reactive Protein Total Protein Albumin Globulin Albumin/Globulin Ratio Lipase TSH 0.15 L Urine Color YELLOW Urine Clarity CLEAR Urine pH 6.0 Ur Specific [place] >=1.030 H Urine Protein NEGATIVE Urine Glucose (UA) NEGATIVE Urine Ketones TRACE Urine Occult Blood NEGATIVE Urine Nitrite NEGATIVE Urine Bilirubin NEGATIVE Urine Urobilinogen 0.2 (NORMAL) Ur Leukocyte Esterase NEGATIVE Ur Microscopic Review NOT INDICATED Urine Culture Comments NOT INDICATED - Rads (name of study) abd CT Radiology: Prelim report reviewed (Acute colitis of the transverse and descending colon. No free fluid nor signs of perforation.), See rad report PD MEDICAL DECISION MAKING - ED course Complexity details: reviewed results (Her white count is elevated suggesting an infectious process. CT is showing segmental colitis of the transverse and descending colon. We will treat as potentially bacterial colitis given the abrupt onset. No history of diverticulitis.), re-evaluated patient (She improved with pain medicine and some fluids. However the pain medicine is wearing off and she is having considerable cramping again. We will give repeat dosing.), considered differential (She is in considerable discomfort for lower to mid abdominal pain. She is having considerable tenderness to palpation and also percussion tenderness. Will evaluate for possible perforation versus diverticulitis versus obstruction or volvulus. Will need CT scan and labs), d/w patient Departure - Departure Disposition: ED Place in Observation Clinical Impression: Acute colitis Abdominal pain Qualifiers: Abdominal location: lower abdomen, unspecified Qualified Code(s): R10.30 - Lower abdominal pain, unspecified GI bleeding Qualifiers: GI bleed type/associated pathology: unspecified gastrointestinal hemorrhage type Qualified Code(s): K92.2 - Gastrointestinal hemorrhage, unspecified Condition: Stable Record reviewed to determine appropriate education?: Yes Discharge Date/Time: 12/13/19 02:18
[2019-12-12 21:42] LABS: ALBUMIN 4.4 g/dL (3.2-5.5); ALBUMIN/GLOBULIN RATIO 1.2 (1.0-2.2); BILIRUBIN,TOTAL 0.6 mg/dL (0.2-1.0); CALCIUM 9.4 mg/dL (8.5-10.3); CREATININE 0.9 mg/dL (0.4-1.0)
[2019-12-12] MEDS ORDERED: SODIUM CHLORIDE 0.9% 1,000 ML IV STA ×2 (21:54→22:36)
[2019-12-12] MEDS ORDERED: HYDROmorphone 1 MG/ML CARPUJECT IVP STA (21:54)
[2019-12-12 22:01] LABS: BILIRUBIN,URINE NEGATIVE (NEGATIVE); CLARITY,URINE CLEAR (CLEAR); GLUCOSE, URINE (UA) NEGATIVE (NEGATIVE); KETONES,URINE (UA) TRACE mg/dL (NEGATIVE); LEUKOCYTE ESTERASE, URINE NEGATIVE (NEGATIVE); NITRITE,URINE NEGATIVE (NEGATIVE); OCCULT BLOOD,URINE NEGATIVE (NEGATIVE); PROTEIN,URINE NEGATIVE (NEGATIVE); UROBILINOGEN,URINE 0.2 (NORMAL) E.U./dL (NORMAL)
[2019-12-12] MEDS ORDERED: IOVERSOL 320 100 ML VIAL IVP ONE ×2 (22:48→23:28)
[2019-12-13] MEDS ORDERED: HYDROmorphone 1 MG/ML CARPUJECT IVP STA (00:40)
[2019-12-13] MEDS ORDERED: metroNIDAZOLE 500 MG/100 ML 500 MG/100 ML BAG IV ONE (00:40)
[2019-12-13] MEDS ORDERED: cefTRIAXone 1 GM VIAL IVP STA (00:40)
--- NOTE | 2019-12-13 01:24 | HISTORY & PHYSICAL EXAMINATION ---
Chief Complaint - Chief Complaint Chief Complaint: Abdominal pain History of Present Illness - Admitted From Admitted From:: Home - History Obtained From Records Reviewed: Yes History obtained from: Patient, ER Physician, EMR - History of Present Illness HPI Comment/Other: This is a pleasant 54-year-old female with a past medical history significant for hypertension, PTSD, hypothyroidism, and breast cancer in remission who presents today complaining of abdominal pain and bright red blood per rectum. She reports being in her usual state of health until today. She went with her granddaughter to a wound care visit in [place] when she started developing some lower abdominal cramping. She then had diarrhea and noticed dark blood clots as well. She returned home but she continued to have tenesmus. Go to the bathroom but she would not have any stool output but she continued to have bleeding. She believes it was about 5 tablespoons of blood. At around 8 PM, she had another bowel movement but it was bright red blood per rectum but she noted it was less blood than before. Due to her continued abdominal pain and bleeding, she sought medical attention. She reports no associated fevers, chills. She did have some nausea but no vomiting. The pain is quite severe and located in the lower abdomen. She reports no recent antibiotic use or sick contacts. She reports having a colonoscopy about 4 to 5 years ago which was unremarkable to her knowledge. Her father had FAP and she has one son with Crohn's disease. She does not take aspirin or any anticoagulants. In the emergency department, she was found to be afebrile with temperature of 36.7 C. Her heart rate was 63. Her blood pressure was 146/100. She was not tachypneic and saturating 100% on room air. Labs were significant for a white count of 14.3 with a left shift. CT of the abdomen pelvis with IV contrast was concerning for nonspecific acute colitis in the transverse and descending colon. She received ceftriaxone and Flagyl IV. She was given multiple doses of Dilaudid IV for pain control. She also received 2 L of normal saline. Due to the findings above, medicine was consulted for admission I did discuss goals of care with the patient and she would like to be a full code. 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 She has one son with Tran syndrome and another son with Crohn's disease. Another family member has turcot syndrome. Living arrangement: At home Social History Notes: She has lived here on [facility] since the age of 13. 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 She currently smokes 1 to 2 cigarettes a day. She has been smoking for the past 3 years but was smoking about a quarter of a pack a day initially. She had quit for 15 years prior to smoking. She denies any alcohol use. She smokes marijuana about 4-5 times a week. Denies any other drug use. - Substance History Use: Uses substance without health or social issues: Cannabis - POLST Patient has POLST: No Meds/Allgy - Home Medications Home Medications: Ambulatory Orders Medication Instructions Recorded Confirmed Albuterol Sulfate [Proair Hfa 2 puffs INH Q4H PRN 07/14/15 06/04/19 Inhaler] EPINEPHrine [Epinephrine] 0.3 mg IM ONCE PRN 07/14/15 06/04/19 Gabapentin 900 mg PO BID 07/14/15 06/04/19 Metoprolol Tartrate 50 mg PO DAILY 07/14/15 06/04/19 Oxybutynin [Ditropan] 5 mg PO DAILY PRN 07/14/15 06/04/19 Venlafaxine HCl [Effexor Xr] 150 mg PO DAILY 07/14/15 06/04/19 Ondansetron HCl 4 mg PO QPM PRN 04/30/16 06/04/19 Denosumab [Prolia] 60 mg INJ Q6M 05/16/17 06/04/19 Butalb/Acetaminophen/Caffeine 1 cap PO Q4H PRN 01/23/19 06/04/19 [Fioricet 50-300-40 mg Capsule] Calcium Carbonate/Vitamin D3 1 tab PO DAILY 01/23/19 06/04/19 [Calcium 500-Vit D3 200 Tablet] Lansoprazole 15 mg PO DAILY 01/23/19 06/04/19 Levothyroxine [Synthroid] 125 mcg PO DAILY 01/23/19 06/04/19 Lisdexamfetamine Dimesylate 50 mg PO DAILY 01/23/19 06/04/19 [Vyvanse] Metoprolol Tartrate 75 mg PO QPM 01/23/19 06/04/19 Potassium Chloride 20 meq PO DAILY 01/23/19 06/04/19 Spironolactone 75 mg PO DAILY 01/23/19 06/04/19 lamoTRIgine [Lamictal] 200 mg PO DAILY 01/23/19 06/04/19 lisinopriL [Lisinopril] 10 mg PO QPM 01/23/19 06/04/19 Prazosin HCl 2 mg PO DAILY #30 capsule 01/24/19 06/04/19 Oxycodone HCl/Acetaminophen 1 - 2 each PO Q6H PRN #14 tablet 02/17/19 06/04/19 [Percocet 5-325 mg Tablet] predniSONE [Deltasone] 20 mg PO [id number] #21 tab 02/17/19 06/04/19 - Allergies Allergies/Adverse Reactions: Allergies Allergy/AdvReac Type Severity Reaction Status Date / Time prochlorperazine edisylate * Allergy Severe Hallucinati Verified 12/12/19 21:06 [From Compazine] ons prochlorperazine maleate * Allergy Severe Hallucinati Verified 12/12/19 21:06 [From Compazine] ons Sulfa (Sulfonamide Allergy Severe Hives Verified 12/12/19 21:06 Antibiotics) tetracycline [Tetracycline] Allergy Severe Blisters Verified 12/12/19 21:06 bee venom protein (honey bee) Allergy Anaphylaxis Verified 12/12/19 21:06 sumatriptan [From Imitrex] AdvReac Severe Chest Verified 12/12/19 21:06 Pain/Anxiety sumatriptan succinate * AdvReac Severe Chest Verified 12/12/19 21:06 [From Imitrex] Pain/Anxiety latex AdvReac Itching Verified 12/12/19 21:06 Review of Systems - Constitutional Constitutional: reports: Fatigue, Malaise, Weakness, Poor appetite. denies: Fever, Chills - Ears, Nose & Throat Ears, Nose & Throat: denies: Nasal discharge, Nasal congestion, Sore throat - Cardiovascular Cariovascular: denies: Chest pain, Exertional dyspnea, Decr. exercise tolerance - Respiratory Respiratory: denies: Cough, SOB at rest, SOB with exertion - Gastrointestinal Gastrointestinal: reports: Abdominal pain, Diarrhea, Change in bowel habits, Rectal bleeding, Bloody stools, Nausea, Bloating, Poor appetite. denies: Vomiting - Genitourinary Genitourinary: denies: Dysuria, Frequency, Urgency, Hematuria - Musculoskeletal Musculoskeletal: denies: Muscle pain, Limited range of motion - Integumentary Integumentary: denies: Rash - Neurological Neurological: reports: General weakness, Dizziness. denies: Focal weakness, Headache, Numbness - Endocrine Endocrine: reports: Polydypsia - Hematologic/Lymphatic Hematologic/Lymphatic: denies: Bleeding tendencies - All Other Systems All Other Systems: reports: Reviewed and negative Prior Level of Functionality: She is independent with her ADLs. Exam - Vital Signs Reviewed Vital Signs: Yes Vital Signs: Vital Signs x48h Temp Pulse Resp BP Pulse Ox 12/13/19 00:00 68 21 121/96 H 100 12/12/19 23:36 81 17 129/76 97 12/12/19 21:03 36.7 C 63 20 146/100 H 100 - Physical Exam General Appearance: positive: Alert, Mild distress Eyes Bilateral: positive: Normal inspection, Conjunctivae nml ENT: positive: ENT inspection nml, Dry mucous membranes. negative: No signs of dehydration Neck: positive: Nml inspection Respiratory: positive: No respiratory distress. negative: Wheezes, Rales, Rhonchi Cardiovascular: positive: Regular rate & rhythm, No murmur. negative: Irregularly irregular, Tachycardia, Bradycardia, Systolic murmur Abdomen: positive: Tenderness (She is tender in the left lower and upper quadrants as well as in the suprapubic region. No epigastric or right upper quadrant tenderness.), Guarding, Abnml bowel sounds (Hypoactive bowel sounds.). negative: Non-tender, Rebound Skin: positive: Warm, Dry Extremities: positive: Full ROM, No pedal edema Neurologic/Psychiatric: positive: Oriented x3, Motor nml. negative: Disoriented to person, Disoriented to place, Disoriented to time Conclusion/Plan - Problem List (1) Acute colitis Conclusion/Plan: She presents with abdominal pain along with diarrhea and bright red blood per rectum. CT of the abdomen pelvis concerning for colitis of the transverse and descending colon. Differential includes ischemic colitis, infectious including bacterial, and inflammatory bowel disease. She received ceftriaxone and Flagyl IV in the emergency department. We will continue IV antibiotics with ciprofloxacin and Flagyl. We will check a CRP and ESR. Check stool cultures, C. difficile PCR, Calprotectin. Morphine IV as needed for pain. Zofran for nausea. Lactated Ringer's for IV fluids. We will place her on a full liquid diet. We will likely consult general surgery in the morning for the recommendations regarding possible sigmoidoscopy. (2) GI bleeding Conclusion/Plan: Presents with dark bloody stools that progressed to bright red blood per rectum. This is presumably secondary to her colitis which may potentially be ischemic in nature or due to inflammatory bowel disease or infection. Her hemoglobin is fortunately stable and is actually improved compared to 2 days ago. Plan overall is as mentioned above. We will recheck her hemoglobin this morning and again the following afternoon to ensure it is stable. SCDs for DVT prophylaxis. No chemical DVT prophylaxis for time being given the concern for ongoing bleeding. Qualifiers: GI bleed type/associated pathology: unspecified gastrointestinal hemorrhage type Qualified Code(s): K92.2 - Gastrointestinal hemorrhage, unspecified (3) Hypertension Conclusion/Plan: She is currently normotensive with systolic in the 120s. We will hold her home antihypertensives for the time being. If there is no significant bleeding then we will resume these in the morning. (4) Hypothyroidism Conclusion/Plan: We will check a TSH and continue her home Synthroid. (5) PTSD (post-traumatic stress disorder) Conclusion/Plan: Stable. We will continue her home medications. (6) Depression Conclusion/Plan: Stable. We will continue her home venlafaxine. (7) Hx of breast cancer Conclusion/Plan: This is in remission. Outpatient follow-up with her oncologist. - Lab Results Lab results reviewed: Yes Fish Bones: 12/12/19 21:20 12/12/19 21:20 - Diagnostic Imaging Results Diagnostic Imaging Results: positive: Final report reviewed Core Measures - Anticipated LOS I expect patient to be DC'd or transferred within 96 hours.: Yes - Issues Hospital Issues and Management Plan: 54-year-old female presents with abdominal pain and bright red blood per rectum found to have colitis on imaging. We will observe her overnight to monitor for further bleeding. Check for C. difficile and stool cultures. Will treat her with empiric IV antibiotics. - DVT/VTE - Prophylaxis VTE/DVT Device ordered at admit?: Yes VTE/DVT Prophylaxis med ordered at admit?: No Not Ordered - Medical Reason: Contraindicated
[2019-12-13] MEDS: MORPHINE 2 MG/ML CARPUJECT IVP PRN ×3 (03:00→11:50)
[2019-12-13] MEDS: ACETAMINOPHEN 325 MG TABLET PO PRN ×3 (03:00→16:02)
[2019-12-13] MEDS: SODIUM CHLORIDE FLUSH 0.9% 10 ML SYRINGE IVP SCH ×2 (03:02→15:48)
[2019-12-13] MEDS: LACTATED RINGERS 1,000 ML IV SCH ×3 (03:06→22:16)
[2019-12-13 06:31] LABS: BASOPHILS % (AUTO) 0.2 %; HGB - HEMOGLOBIN 11.7 g/dL (12.0-16.0); LYMPHOCYTES # (AUTO) 2.2 10^3/uL (1.5-3.5); LYMPHOCYTES % (AUTO) 21.8 %; MEAN CORPUSCULAR HEMOGLOBIN 30.1 pg (27.0-31.0); MEAN CORPUSCULAR HGB CONC 33.1 g/dL (32.0-36.0); MEAN PLATELET VOLUME 9.5 fL (7.9-10.8); MONOCYTES # (AUTO) 0.6 10^3/uL (0.0-1.0); MONOCYTES % (AUTO) 5.6 %; NEUTROPHILS # (AUTO) 7.1 10^3/uL (1.5-6.6); NEUTROPHILS % (AUTO) 71.8 %; PLT - PLATELET COUNT 287 10^3/uL (130-450); RED BLOOD COUNT 3.89 10^6/uL (4.20-5.40); RED CELL DISTRIBUTION WIDTH 13.2 % (12.0-15.0); WHITE BLOOD COUNT 9.9 x10^3/uL (4.8-10.8)
[2019-12-13 06:43] LABS: CALCIUM 8.5 mg/dL (8.5-10.3); CREATININE 0.7 mg/dL (0.4-1.0); PHOSPHORUS 2.7 mg/dL (2.5-4.6)
[2019-12-13] MEDS ORDERED: metroNIDAZOLE 500 MG/100 ML 500 MG/100 ML BAG IV SCH (08:00)
[2019-12-13] MEDS: NICOTINE 7 MG PATCH TOP SCH (08:09)
[2019-12-13] MEDS ORDERED: SODIUM CHLORIDE 0.9% 500 ML IV ONE (08:38)
[2019-12-13] MEDS ORDERED: ALBUTEROL NEB 2.5 MG/3 ML INH PRN (08:42)
[2019-12-13] MEDS ORDERED: CIPROFLOXACIN 400 MG/200 ML 400 MG/200 ML BAG IV SCH (09:00)
--- NOTE | 2019-12-13 09:12 | CT Report ---
PROCEDURE: Abdomen/Pelvis W INDICATIONS: mid abd pain and bloody stool today CONTRAST: IV CONTRAST: Optiray 320 ml: 100 PO CONTRAST: *NO PO CONTRAST TECHNIQUE: After the administration of oral and intravenous contrast, 5 mm thick sections acquired from the diap hragms to the symphysis. 5 mm thick coronal and sagittal reformats were acquired. For radiation dos e reduction, the following was used: automated exposure control, adjustment of mA and/or kV accordin g to patient size. COMPARISON: CT abdomen pelvis 06/03/2019 FINDINGS: Image quality: Excellent. ABDOMEN: Lung bases: Lung bases are clear. Heart size is normal. Solid organs: Liver and spleen are normal in size and enhancement. Gallbladder has been removed Bi liary system is non dilated. Pancreas enhances normally. No adrenal nodules. Kidneys demonstrate n ormal size and enhancement, without hydronephrosis. Peritoneum and bowel: Bowel loops are nonobstructive. There is prominent thickening within portions of the transverse colon extending to the descending and sigmoid colon with areas of surrounding peric olonic inflammatory change. Diverticula are not identified. No free fluid or free air. Nodes and vessels: No retroperitoneal or mesenteric adenopathy by size criteria. Aorta and inferior vena cava are normal in size. Miscellaneous: No ventral hernias. PELVIS: Genitourinary: Bladder wall thickness is normal. Miscellaneous: No inguinal hernias or adenopathy. Bones: Focus of sclerosis within the posterior aspect of T11 is unchanged. No vertebral body compress ion fractures. IMPRESSION: 1. Wall thickening and pericolonic stranding within the colon as above consistent with colitis. Etiol ogies may be related to infection/inflammation or potentially ischemic. 2. Unchanged focus of sclerosis at T11 compared to prior exam. The above findings are concordant with preliminary report. Reviewed by: Thelma Pritchett MD on 12/13/2019 9:11 AM PDT Approved by: Thelma Pritchett MD on 12/13/2019 9:11 AM PDT Station ID: [id number]
[2019-12-13] MEDS: BUTALB/ACETAM/CAFF 50/325/40MG TABLET PO PRN ×2 (10:40→20:09)
[2019-12-13] MEDS: LEVOTHYROXINE 100 MCG TABLET PO SCH (10:41)
--- NOTE | 2019-12-13 11:39 | PROVIDER PROGRESS NOTE ---
Assessment/Plan - Current Meds Current Meds: Current Medications Generic Name Dose Route Start Last Admin Trade Name Freq PRN Reason Stop Dose Admin Acetaminophen 650 mg 12/13/19 01:12 12/13/19 08:22 Tylenol PO 650 mg Q4HR PRN Administration Pain 1 to 4 Acetaminophen/Butalbital/Caffeine 1 tab 12/13/19 08:39 12/13/19 10:40 Fioricet PO 1 tab Q4HR PRN Administration HEADACHE Lactated Ringer's 1,000 mls @ 100 mls/hr 12/13/19 02:00 12/13/19 03:06 Lr IV 100 mls/hr .Q10H ELIEL Administration Levothyroxine Sodium 100 mcg 12/13/19 08:36 12/13/19 10:41 Synthroid PO 100 mcg QDAC ELIEL Administration Morphine Sulfate 2 mg 12/13/19 01:12 12/13/19 05:39 Morphine (Carpuject) IVP 2 mg Q2HR PRN Administration Pain 8 to 10 Nicotine 1 patch 12/13/19 09:00 12/13/19 08:09 Nicoderm TOP 1 patch DAILY ELIEL Administration Sodium Chloride 10 ml 12/13/19 09:00 12/13/19 03:02 Normal Saline Flush 0.9% IVP 10 ml 0100,0900,1700 ELIEL Administration - Lab Result Fish Bone Diagrams: 12/13/19 05:58 12/13/19 05:58 - Additional Planning My Orders: My Active Orders 12/13/19 General Surgery Consult [CONS] Routine 12/13/19 08:36 Levothyroxine [Synthroid] 100 mcg PO QDAC 12/13/19 08:39 Butalb/Acetam/Caff 50/325/40 [Fioricet] 1 tab PO Q4HR PRN 12/13/19 08:42 Nebulizer/MDI Tx. [RC] .Q4 PRN Resp Teach Nebulizer/MDI [RC] .ONCE Albuterol 2.5 mg INH RTQ4H PRN 12/13/19 20:00 H&H [HEMOGLOBIN AND HEMATOCRIT] [HEME] Timed 12/14/19 05:00 LAMOTRIGINE [REFLAB] DAILYLAB Objective Vital Signs: Vital Signs - 24 hr 12/12/19 12/12/19 12/13/19 21:03 23:36 00:00 Temperature 36.7 C Heart Rate 63 81 68 Heart Rate [ Brachial] Respiratory 20 17 21 Rate Blood Pressure 146/100 H 129/76 121/96 H Blood Pressure [Left Brachial artery] Blood Pressure [Right Brachial artery] O2 Saturation 100 97 100 12/13/19 12/13/19 12/13/19 02:22 05:46 08:25 Temperature 36.6 C 36.5 C 36.7 C Heart Rate Heart Rate [ 58 L 62 53 L Brachial] Respiratory 16 16 16 Rate Blood Pressure Blood Pressure 92/52 L [Left Brachial artery] Blood Pressure 102/57 L 117/77 [Right Brachial artery] O2 Saturation 98 100 98 Oxygen O2 Source Room air I&O (Last 24 Hrs): Intake and Output Totals x24h 12/11/19 12/12/19 12/13/19 23:59 23:59 23:59 Intake Total 1000 1600.000 Balance 1000 1600.000 - Results Results: Laboratory Results WBC 9.9 x10^3/uL (4.8-10.8) 12/13/19 05:58 RBC 3.89 10^6/uL (4.20-5.40) L 12/13/19 05:58 Hgb 11.7 g/dL (12.0-16.0) L 12/13/19 05:58 Hct 35.4 % (37.0-47.0) L 12/13/19 05:58 MCV 91.0 fL (81.0-99.0) 12/13/19 05:58 MCH 30.1 pg (27.0-31.0) 12/13/19 05:58 MCHC 33.1 g/dL (32.0-36.0) 12/13/19 05:58 RDW 13.2 % (12.0-15.0) 12/13/19 05:58 Plt Count 287 10^3/uL (130-450) 12/13/19 05:58 MPV 9.5 fL (7.9-10.8) 12/13/19 05:58 Neut # (Auto) 7.1 10^3/uL (1.5-6.6) H 12/13/19 05:58 Lymph # (Auto) 2.2 10^3/uL (1.5-3.5) 12/13/19 05:58 [place] # (Auto) 0.6 10^3/uL (0.0-1.0) 12/13/19 05:58 Eos # (Auto) 0.0 10^3/uL (0.0-0.7) 12/13/19 05:58 Baso # (Auto) 0.0 10^3/uL (0.0-0.1) 12/13/19 05:58 Absolute Nucleated RBC 0.00 x10^3/uL 12/13/19 05:58 Nucleated RBC % 0.0 /100WBC 12/13/19 05:58 ESR 10 mm/Hr (0-30) 12/13/19 05:58 Sodium 137 mmol/L (135-145) 12/13/19 05:58 Potassium 3.5 mmol/L (3.5-5.0) 12/13/19 05:58 Chloride 105 mmol/L (101-111) 12/13/19 05:58 Carbon Dioxide 25 mmol/L (21-32) 12/13/19 05:58 Anion Gap 7.0 (6-13) 12/13/19 05:58 BUN 13 mg/dL (6-20) 12/13/19 05:58 Creatinine 0.7 mg/dL (0.4-1.0) 12/13/19 05:58 Estimated GFR (MDRD) 87 (>89) L 12/13/19 05:58 Glucose 94 mg/dL (70-100) 12/13/19 05:58 Calcium 8.5 mg/dL (8.5-10.3) 12/13/19 05:58 Phosphorus 2.7 mg/dL (2.5-4.6) 12/13/19 05:58 Magnesium 2.0 mg/dL (1.7-2.8) 12/13/19 05:58 Total Bilirubin 0.6 mg/dL (0.2-1.0) 12/12/19 21:20 AST 25 IU/L (10-42) 12/12/19 21:20 ALT 16 IU/L (10-60) 12/12/19 21:20 Alkaline Phosphatase 65 IU/L (42-121) 12/12/19 21:20 C-Reactive Protein < 1.0 mg/dL (0-1.0) 12/12/19 21:20 Total Protein 8.0 g/dL (6.7-8.2) 12/12/19 21:20 Albumin 4.4 g/dL (3.2-5.5) 12/12/19 21:20 Globulin 3.6 g/dL (2.1-4.2) 12/12/19 21:20 Albumin/Globulin Ratio 1.2 (1.0-2.2) 12/12/19 21:20 Lipase 43 U/L (22-51) 12/12/19 21:20 TSH 0.15 uIU/mL (0.34-5.60) L 12/12/19 21:20 Urine Color YELLOW 12/12/19 21:52 Urine Clarity CLEAR (CLEAR) 12/12/19 21:52 Urine pH 6.0 PH (5.0-7.5) 12/12/19 21:52 Ur Specific [place] >=1.030 (1.002-1.030) H 12/12/19 21:52 Urine Protein NEGATIVE mg/dL (NEGATIVE) 12/12/19 21:52 Urine Glucose (UA) NEGATIVE mg/dL (NEGATIVE) 12/12/19 21:52 Urine Ketones TRACE mg/dL (NEGATIVE) 12/12/19 21:52 Urine Occult Blood NEGATIVE (NEGATIVE) 12/12/19 21:52 Urine Nitrite NEGATIVE (NEGATIVE) 12/12/19 21:52 Urine Bilirubin NEGATIVE (NEGATIVE) 12/12/19 21:52 Urine Urobilinogen 0.2 (NORMAL) E.U./dL (NORMAL) 12/12/19 21:52 Ur Leukocyte Esterase NEGATIVE (NEGATIVE) 12/12/19 21:52 Ur Microscopic Review NOT INDICATED 12/12/19 21:52 Urine Culture Comments NOT INDICATED 12/12/19 21:52 - Procedures Procedures: Procedures COLONOSCOPY (11/15/13) CYSTOCEL/RECTOCEL REPAIR (01/29/15) LAPAROSCOP REMOVE REMAIN OVARY (01/29/15) URIN INCONTIN REPAIR NEC (01/29/15) ABX Reporting Has patient been on IV antibiotics over the past 48 hours?: No
[2019-12-13] MEDS: ONDANSETRON 4 MG/2 ML VIAL IVP PRN (11:50)
--- NOTE | 2019-12-13 13:36 | CONSULTATION NOTE ---
Referring Provider Name of Referring Provider:: Ginna Suazo Consult Date: 12/13/19 Chief Complaint - Chief Complaint Chief Complaint: Colitis History of Present Illness - Admitted From Admitted From:: ED - History Obtained From Records Reviewed: Providers notes History obtained from: Patient and records Exam Limitations: None - History of Present Illness HPI Comment/Other: Krystal is well known to me from prior visits. She reports she was in her usual state of health until yesterday afternoon when she began to feel sleepy and to have abdominal pain. She has been taking and family member back and forth to [place] for wound care and reports she was a little "queasy and bloated" during the day. She compares her initial pain to the pressure inside a stretched balloon. Her pain became so severe that she felt unable to drive and [place] to the ED with bloody diarrhea. In the ED, she was noted to be afebrile but have a slight leukocytosis. CT showed colitis involving the transverse, descending, and sigmoid colons. She was started on antibiotic in the ED but that was stopped at the time of admission. Both patient and nursing staff report stools this AM were consistent with blood. Krystal says her distension has improved but her pain is the same as it was at the time of admission. I have been consulted regarding the possibility of endoscopy to help establish a diagnosis. History - Past Medical History Cardiovascular: reports: Hypertension Respiratory: reports: Other Neuro: reports: Migraines Endocrine/Autoimmune: reports: HyPOthyroidism GI: reports: Other COUNTY SHERIFF: reports: Breast cancer : reports: None HEENT: reports: Macular degeneration Psych: reports: Depression, Anxiety, Post traumatic stress disorder Musculoskeletal: reports: Fibromyalgia, Osteoporosis Derm: reports: None MRSA Hx?: No Other Past Medical History: LEFT EAR BOTHERS HER AT TIMES. STATES CHECKED IN ED AND NO REPORTED PROBLEMS AT THIS TIME. READING GLASSES; MACULAR DEGENERATION ON RIGHT EYE. REACTIVE AIRWAY DISEASE, CPAP AT HOME - Past Surgical History General: reports: Cholecystectomy Ortho: reports: Carpal Tunnel surgery /COUNTY SHERIFF: reports: Hysterectomy, Oophrectomy, Mastectomy HEENT: reports: Tonsil/Adenoidectomy - Family & Social History Family History Comment/Other: She reports her father had FAP. She has one son with Tran syndrome and another son with Crohn's disease. Another family member has turcot syndrome. Living arrangement: At home Social History Notes: She has lived here on [facility] since the age of 13. 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 She currently smokes 1 to 2 cigarettes a day. She has been smoking for the past 3 years but was smoking about a quarter of a pack a day initially. She had quit for 15 years prior to smoking. She denies any alcohol use. She smokes marijuana about 4-5 times a week. Denies any other drug use. - Substance History Use: Uses substance without health or social issues: Cannabis - POLST Patient has POLST: No Meds/Allgy - Home Medications Home Medications: Ambulatory Orders Medication Instructions Recorded Confirmed Albuterol Sulfate [Proair Hfa 2 puffs INH Q4H PRN 07/14/15 06/04/19 Inhaler] EPINEPHrine [Epinephrine] 0.3 mg IM ONCE PRN 07/14/15 06/04/19 Gabapentin 900 mg PO BID 07/14/15 06/04/19 Metoprolol Tartrate 50 mg PO DAILY 07/14/15 06/04/19 Oxybutynin [Ditropan] 5 mg PO DAILY PRN 07/14/15 06/04/19 Venlafaxine HCl [Effexor Xr] 150 mg PO DAILY 07/14/15 06/04/19 Ondansetron HCl 4 mg PO QPM PRN 04/30/16 06/04/19 Denosumab [Prolia] 60 mg INJ Q6M 05/16/17 06/04/19 Butalb/Acetaminophen/Caffeine 1 cap PO Q4H PRN 01/23/19 06/04/19 [Fioricet 50-300-40 mg Capsule] Calcium Carbonate/Vitamin D3 1 tab PO DAILY 01/23/19 06/04/19 [Calcium 500-Vit D3 200 Tablet] Lansoprazole 15 mg PO DAILY 01/23/19 06/04/19 Levothyroxine [Synthroid] 125 mcg PO DAILY 01/23/19 06/04/19 Lisdexamfetamine Dimesylate 50 mg PO DAILY 01/23/19 06/04/19 [Vyvanse] Metoprolol Tartrate 75 mg PO QPM 01/23/19 06/04/19 Potassium Chloride 20 meq PO DAILY 01/23/19 06/04/19 Spironolactone 75 mg PO DAILY 01/23/19 06/04/19 lamoTRIgine [Lamictal] 200 mg PO DAILY 01/23/19 06/04/19 lisinopriL [Lisinopril] 10 mg PO QPM 01/23/19 06/04/19 Prazosin HCl 2 mg PO DAILY #30 capsule 01/24/19 06/04/19 Oxycodone HCl/Acetaminophen 1 - 2 each PO Q6H PRN #14 tablet 02/17/19 06/04/19 [Percocet 5-325 mg Tablet] predniSONE [Deltasone] 20 mg PO [id number] #21 tab 02/17/19 06/04/19 - Allergies Allergies/Adverse Reactions: Allergies Allergy/AdvReac Type Severity Reaction Status Date / Time prochlorperazine edisylate * Allergy Severe Hallucinati Verified 12/12/19 21:06 [From Compazine] ons prochlorperazine maleate * Allergy Severe Hallucinati Verified 12/12/19 21:06 [From Compazine] ons Sulfa (Sulfonamide Allergy Severe Hives Verified 12/12/19 21:06 Antibiotics) tetracycline [Tetracycline] Allergy Severe Blisters Verified 12/12/19 21:06 bee venom protein (honey bee) Allergy Anaphylaxis Verified 12/12/19 21:06 sumatriptan [From Imitrex] AdvReac Severe Chest Verified 12/12/19 21:06 Pain/Anxiety sumatriptan succinate * AdvReac Severe Chest Verified 12/12/19 21:06 [From Imitrex] Pain/Anxiety latex AdvReac Itching Verified 12/12/19 21:06 Review of Systems - Constitutional Constitutional: reports: Fatigue, Weakness - Eyes Eyes: denies: Irritation - Ears, Nose & Throat Ears, Nose & Throat: denies: Tinnitus, Vertigo - Cardiovascular Cariovascular: reports: Lightheadedness. denies: Chest pain - Respiratory Respiratory: denies: Cough, Wheezing - Gastrointestinal Gastrointestinal: reports: Abdominal pain, Abdominal distention, Diarrhea, Rectal bleeding, Bloody stools - All Other Systems All Other Systems: reports: Reviewed and negative Exam - Vital Signs Reviewed Vital Signs: Yes Vital Signs: Vital Signs x48h Temp Pulse Pulse Resp BP BP Pulse Ox 12/13/19 11:53 36.7 C 53 L 16 100/64 100 06/25/20 11:25 74 16 12/13/19 08:25 36.7 C 53 L 16 92/52 L 98 12/13/19 05:46 36.5 C 62 16 117/77 100 - Physical Exam General Appearance: positive: No acute distress, Alert Eyes Bilateral: positive: Normal inspection, PERRL, EOMI ENT: positive: ENT inspection nml Neck: positive: Nml inspection Respiratory: positive: No respiratory distress, Breath sounds nml Cardiovascular: positive: Regular rate & rhythm Peripheral Pulses: positive: 1+ Abdomen: positive: Tenderness. negative: Rebound, Mass Back: negative: CVA tenderness (R), CVA tenderness (L) Neurologic/Psychiatric: positive: Oriented x3 Conclusion and Plan - Lab Results Microbiology Results 12/13/19 11:30 Stool Campylobacter Antigen Assay - Final Laboratory Results 12/13/19 11:30: Stl Occult Blood (IFOB) POSITIVE A 12/13/19 05:58: ESR 10 12/13/19 05:58: Sodium 137, Potassium 3.5, Chloride 105, Carbon Dioxide 25, Anion Gap 7.0, BUN 13, Creatinine 0.7, Estimated GFR (MDRD) 87 L, Glucose 94, Calcium 8.5, Phosphorus 2.7, Magnesium 2.0 12/13/19 05:58: WBC 9.9, RBC 3.89 L, Hgb 11.7 L, Hct 35.4 L, MCV 91.0, MCH 30.1, MCHC 33.1, RDW 13.2, Plt Count 287, MPV 9.5, Neut # (Auto) 7.1 H, Lymph # (Auto) 2.2, [place] # (Auto) 0.6, Eos # (Auto) 0.0, Baso # (Auto) 0.0, Absolute Nucleated RBC 0.00, Nucleated RBC % 0.0 12/12/19 21:52: Urine Color YELLOW, Urine Clarity CLEAR, Urine pH 6.0, Ur Specific [place] >=1.030 H, Urine Protein NEGATIVE, Urine Glucose (UA) NEGATIVE, Urine Ketones TRACE, Urine Occult Blood NEGATIVE, Urine Nitrite NEGATIVE, Urine Bilirubin NEGATIVE, Urine Urobilinogen 0.2 (NORMAL), Ur Leukocyte Esterase NEGATIVE, Ur Microscopic Review NOT INDICATED, Urine Culture Comments NOT INDICATED 06/24/20 21:20: TSH 0.15 L 12/12/19 21:20: C-Reactive Protein < 1.0 12/12/19 21:20: Sodium 134 L, Potassium 3.7, Chloride 98 L, Carbon Dioxide 28, Anion Gap 8.0, BUN 22 H, Creatinine 0.9, Estimated GFR (MDRD) 65 L, Glucose 105 H, Calcium 9.4, Total Bilirubin 0.6, AST 25, ALT 16, Alkaline Phosphatase 65, Total Protein 8.0, Albumin 4.4, Globulin 3.6, Albumin/Globulin Ratio 1.2, Lipase 43 12/12/19 21:20: WBC 14.3 H, RBC 4.84, Hgb 13.9, Hct 42.5, MCV 87.8, MCH 28.7, MCHC 32.7, RDW 13.2, Plt Count 381, MPV 8.9, Neut # (Auto) 12.0 H, Lymph # (Auto) 1.5, [place] # (Auto) 0.7, Eos # (Auto) 0.0, Baso # (Auto) 0.0, Absolute Nucleated RBC 0.00, Nucleated RBC % 0.0 - Diagnostic Imaging Results Diagnostic Imaging Results: positive: Final report reviewed - EKG Results EKG Interpreted Independently: No - Diagnosis Diagnosis: Colitis of unknown etiology - Plan Plan: We discussed the risks and benefits of diagnostic flexible sigmoidoscopy. Differential includes infectious and ischemic colitis. The patient will be NPO after MN. We will plan for a limited sigmoidoscopy at about noon tomorrow.
[2019-12-13 14:25] LABS: HGB - HEMOGLOBIN 11.2 g/dL (12.0-16.0)
--- NOTE | 2019-12-13 17:46 | PHARMACY PROGRESS NOTE ---
- Best Possible Medication History Admit Date and Time: 12/13/19 0112 Processed by: Pharmacy Medication History completed: Yes Patient Interview: Completed Secondary Source(s): Physician records, Pharmacy records, Insurance records As the person ultimately responsible for medication therapy, providers are able to order a medication from an existing home medication list in [facility] via the "Reconcile Routine" prior to Confirmation of that medication by help desk support specialist. Such practice is discouraged except when the physician, in their clinical judgment, deems that a medical need exists for a medication without regard to previous use.
[2019-12-13 20:17] LABS: HGB - HEMOGLOBIN 10.6 g/dL (12.0-16.0)
[2019-12-14] MEDS: SODIUM CHLORIDE FLUSH 0.9% 10 ML SYRINGE IVP SCH ×3 (03:40→19:49)
[2019-12-14] MEDS: MORPHINE 2 MG/ML CARPUJECT IVP PRN ×4 (04:41→19:49)
[2019-12-14] MEDS: ACETAMINOPHEN 325 MG TABLET PO PRN (04:42)
[2019-12-14] MEDS: SODIUM CHLORIDE FLUSH 0.9% 10 ML SYRINGE IVP PRN (04:42)
[2019-12-14 05:35] LABS: BASOPHILS % (AUTO) 0.3 %; HGB - HEMOGLOBIN 11.6 g/dL (12.0-16.0); LYMPHOCYTES # (AUTO) 2.6 10^3/uL (1.5-3.5); LYMPHOCYTES % (AUTO) 23.2 %; MEAN CORPUSCULAR HEMOGLOBIN 28.7 pg (27.0-31.0); MEAN CORPUSCULAR HGB CONC 32.1 g/dL (32.0-36.0); MEAN CORPUSCULAR VOLUME 89.4 fL (81.0-99.0); MEAN PLATELET VOLUME 9.5 fL (7.9-10.8); MONOCYTES # (AUTO) 0.7 10^3/uL (0.0-1.0); MONOCYTES % (AUTO) 5.9 %; NEUTROPHILS % (AUTO) 70.2 %; PLT - PLATELET COUNT 338 10^3/uL (130-450); RED BLOOD COUNT 4.04 10^6/uL (4.20-5.40); RED CELL DISTRIBUTION WIDTH 13.4 % (12.0-15.0); WHITE BLOOD COUNT 11.4 x10^3/uL (4.8-10.8)
[2019-12-14 05:36] LABS: CALCIUM 8.6 mg/dL (8.5-10.3); CREATININE 0.7 mg/dL (0.4-1.0); MAGNESIUM 1.9 mg/dL (1.7-2.8); PHOSPHORUS 2.9 mg/dL (2.5-4.6)
[2019-12-14] MEDS: LEVOTHYROXINE 100 MCG TABLET PO SCH (06:16)
[2019-12-14] MEDS ORDERED: LEVOTHYROXINE 100 MCG TABLET PO SCH (07:00)
[2019-12-14] MEDS ORDERED: PRAZOSIN 1 MG CAPSULE PO PRN (07:33)
[2019-12-14] MEDS: LACTATED RINGERS 1,000 ML IV SCH (08:39)
[2019-12-14] MEDS ORDERED: SALINE ENEMA 133 ML BOTTLE RC SCH (09:00)
[2019-12-14] MEDS: FLUTICASONE NASAL SPRAY NAS SCH ×2 (09:02→20:50)
[2019-12-14] MEDS: SPIRONOLACTONE 25 MG TABLET PO SCH (09:03)
[2019-12-14] MEDS: GABAPENTIN 300 MG CAPSULE PO SCH ×2 (09:03→20:49)
[2019-12-14] MEDS: VENLAFAXINE ER 75 MG CAPSULE PO SCH (09:03)
[2019-12-14] MEDS: OXYBUTYNIN 5MG TABLET PO SCH ×2 (09:03→20:42)
[2019-12-14] MEDS: NICOTINE 7 MG PATCH TOP SCH (09:04)
[2019-12-14] MEDS: AMPHETAMINE PO SCH (09:05)
[2019-12-14] MEDS: DEXTROAMPHETAMINE PO SCH (09:05)
[2019-12-14] MEDS: ONDANSETRON 4 MG/2 ML VIAL IVP PRN (09:14)
--- NOTE | 2019-12-14 09:14 | ANESTHESIA ---
Pre-Anesthesia VS, & Labs - Diagnosis Diagnosis Colitis of unknown etiology - Procedure sigmoidoscopy Vital Signs: Temp Pulse Resp BP Pulse Ox 36.8 C 59 L 16 155/76 H 100 12/14/19 04:46 12/14/19 04:46 12/14/19 04:46 12/14/19 04:46 12/14/19 04:46 Height 5 ft 4 in Weight (kg) 64 kg Body Mass Index 24.2 - NPO >8 hours - Is Patient ?: No - Lab Results Current Lab Results: Laboratory Tests 12/14/19 04:35: C-Reactive Protein 14.1 H 12/14/19 04:35: Sodium 137, Potassium 3.7, Chloride 104, Carbon Dioxide 26, Anion Gap 7.0, BUN 8, Creatinine 0.7, Estimated GFR (MDRD) 87 L, Glucose 82, Calcium 8.6, Phosphorus 2.9, Magnesium 1.9 12/14/19 04:35: WBC 11.4 H, RBC 4.04 L, Hgb 11.6 L, Hct 36.1 L, MCV 89.4, MCH 28.7, MCHC 32.1, RDW 13.4, Plt Count 338, MPV 9.5, Neut # (Auto) 8.0 H, Lymph # (Auto) 2.6, [place] # (Auto) 0.7, Eos # (Auto) 0.0, Baso # (Auto) 0.0, Absolute Nucleated RBC 0.00, Nucleated RBC % 0.0 12/13/19 20:07: Hgb 10.6 L, Hct 31.6 L 12/13/19 14:20: Hgb 11.2 L, Hct 33.5 L 12/13/19 05:58: ESR 10 12/13/19 05:58: Sodium 137, Potassium 3.5, Chloride 105, Carbon Dioxide 25, Anio n Gap 7.0, BUN 13, Creatinine 0.7, Estimated GFR (MDRD) 87 L, Glucose 94, C alcium 8.5, Phosphorus 2.7, Magnesium 2.0 12/13/19 05:58: WBC 9.9, RBC 3.89 L, Hgb 11.7 L, Hct 35.4 L, MCV 91.0, MCH 30.1, MCHC 33.1, RDW 13.2, Plt Count 287, MPV 9.5, Neut # (Auto) 7.1 H, Lymph # (Auto) 2.2, [place] # (Auto) 0.6, Eos # (Auto) 0.0, Baso # (Auto) 0.0, Absolute Nucleated RBC 0.00, Nucleated RBC % 0.0 12/12/19 21:20: TSH 0.15 L 12/12/19 21:20: C-Reactive Protein < 1.0 12/12/19 21:20: Sodium 134 L, Potassium 3.7, Chloride 98 L, Carbon Dioxide 28, Anion Gap 8.0, BUN 22 H, Creatinine 0.9, Estimated GFR (MDRD) 65 L, Glucose 105 H, Calcium 9.4, Total Bilirubin 0.6, AST 25, ALT 16, Alkaline Phosphatase 65, Total Protein 8.0, Albumin 4.4, Globulin 3.6, Albumin/Globulin Ratio 1.2, Lipase 43 12/12/19 21:20: WBC 14.3 H, RBC 4.84, Hgb 13.9, Hct 42.5, MCV 87.8, MCH 28.7, MCHC 32.7, RDW 13.2, Plt Count 381, MPV 8.9, Neut # (Auto) 12.0 H, Lymph # (Auto) 1.5, [place] # (Auto) 0.7, Eos # (Auto) 0.0, Baso # (Auto) 0.0, Absolute Nucleated RBC 0.00, Nucleated RBC % 0.0 Lab results reviewed: Yes Fish Bones: 12/14/19 04:35 12/14/19 04:35 Home Medications and Allergies Home Medications: Ambulatory Orders Dextroamphetamine/Amphetamine [Adderall Xr 30 mg Capsule] 30 mg PO DAILY 12/13/19 Fluticasone [Flonase] 1 sprays RAUL BID 12/13/19 Prazosin HCl 2 mg PO QPM PRN 12/13/19 Active Medications Acetaminophen (Tylenol) 650 mg PO Q4HR PRN PRN Reason: Pain 1 to 4 Last Admin: 12/14/19 04:42 Dose: 650 mg Documented by: Acetaminophen/Butalbital/Caffeine (Fioricet) 1 tab PO Q4HR PRN PRN Reason: HEADACHE Last Admin: 12/13/19 20:09 Dose: 1 tab Documented by: Albuterol () 2.5 mg INH RTQ4H PRN PRN Reason: Wheezing Fluticasone Propionate (Flonase) 1 sprays RAUL BID [facility] Last Admin: 12/14/19 09:02 Dose: 1 sprays Documented by: Gabapentin (Neurontin) 900 mg PO BID [facility] Last Admin: 12/14/19 09:03 Dose: 900 mg Documented by: Lactated Ringer's (Lr) 1,000 mls @ 100 mls/hr IV .Q10H [facility] Last Admin: 12/14/19 08:39 Dose: 100 mls/hr Documented by: Lamotrigine (Lamictal) 200 mg PO QPM [facility] Levothyroxine Sodium (Synthroid) 100 mcg PO QDAC [facility] Last Admin: 12/14/19 06:16 Dose: 100 mcg Documented by: Lisinopril (Zestril) 10 mg PO QPM [facility] Morphine Sulfate (Morphine (Carpuject)) 2 mg IVP Q2HR PRN PRN Reason: Pain 8 to 10 Last Admin: 12/14/19 08:43 Dose: 2 mg Documented by: Nicotine (Nicoderm) 1 patch TOP DAILY [facility] Last Admin: 12/14/19 09:04 Dose: 1 patch Documented by: *Patient's Own( Dextroamphetamine/Amphetamine [ Adderall Xr 30 Mg Capsul 30 mg PO DAILY [facility] Last Admin: 12/14/19 09:05 Dose: Not Given Documented by: Ondansetron HCl (Zofran Inj) 4 mg IVP Q6HR PRN PRN Reason: Nausea / Vomiting Last Admin: 12/13/19 11:50 Dose: 4 mg Documented by: Oxybutynin Chloride (Ditropan) 5 mg PO BID [facility] Last Admin: 12/14/19 09:03 Dose: 5 mg Documented by: Prazosin HCl (Minipress) 2 mg PO QPM PRN PRN Reason: Sleep Disruption/PTSD Sodium Biphosphate/Sodium Phosphate (Fleets Saline Enema) 133 ml RC ONCE [facility] Stop: 12/14/19 10:00 Last Admin: 12/14/19 09:04 Dose: 133 ml Documented by: Sodium Chloride (Normal Saline Flush 0.9%) 10 ml IVP PRN PRN PRN Reason: NEEDED PER PROVIDER ORDERS Last Admin: 12/14/19 04:42 Dose: 10 ml Documented by: Sodium Chloride (Normal Saline Flush 0.9%) 10 ml IVP 0100,0900,1700 [facility] Last Admin: 12/14/19 09:04 Dose: Not Given Documented by: Spironolactone (Aldactone) 75 mg PO DAILY [facility] Last Admin: 12/14/19 09:03 Dose: 75 mg Documented by: Venlafaxine HCl (Effexor Er) 150 mg PO DAILY [facility] Last Admin: 12/14/19 09:03 Dose: 150 mg Documented by: Albuterol Sulfate [Proair Hfa Inhaler] 2 puffs INH Q4H PRN 07/14/15 EPINEPHrine [Epinephrine] 0.3 mg IM ONCE PRN 07/14/15 Gabapentin 900 mg PO BID 07/14/15 Metoprolol Tartrate 50 mg PO DAILY 07/14/15 Oxybutynin [Ditropan] 5 mg PO BID 07/14/15 Venlafaxine HCl [Effexor Xr] 150 mg PO DAILY 07/14/15 Ondansetron HCl 4 mg PO QPM PRN 04/30/16 Denosumab [Prolia] 60 mg INJ [id number] 05/16/17 Butalb/Acetaminophen/Caffeine [Fioricet 50-300-40 mg Capsule] 1 - 2 cap PO Q4H PRN MDD 6 caps 01/23/19 Calcium Carbonate/Vitamin D3 [Calcium 500-Vit D3 200 Tablet] 2 tab PO DAILY 01/23/19 Lansoprazole 15 mg PO DAILY 01/23/19 Levothyroxine [Synthroid] 125 mcg PO QPM 01/23/19 Metoprolol Tartrate 75 mg PO QPM 01/23/19 Potassium Chloride 20 meq PO DAILY 01/23/19 Spironolactone 75 mg PO DAILY 01/23/19 lamoTRIgine [Lamictal] 200 mg PO QPM 01/23/19 lisinopriL [Lisinopril] 10 mg PO QPM 01/23/19 Dextroamphetamine/Amphetamine [Adderall Xr 30 mg Capsule] 30 mg PO DAILY 12/13/19 Fluticasone [Flonase] 1 sprays RAUL BID 12/13/19 Prazosin HCl 2 mg PO QPM PRN 12/13/19 Allergies/Adverse Reactions: Allergies Allergy/AdvReac Type Severity Reaction Status Date / Time prochlorperazine edisylate * Allergy Severe Hallucinati Verified 12/12/19 21:06 [From Compazine] ons prochlorperazine maleate * Allergy Severe Hallucinati Verified 12/12/19 21:06 [From Compazine] ons Sulfa (Sulfonamide Allergy Severe Hives Verified 12/12/19 21:06 Antibiotics) tetracycline [Tetracycline] Allergy Severe Blisters Verified 12/12/19 21:06 bee venom protein (honey bee) Allergy Anaphylaxis Verified 12/12/19 21:06 cefuroxime [From Ceftin] Allergy Unknown Verified 12/14/19 08:11 ketorolac [From Toradol] Allergy Unknown Verified 12/14/19 08:11 midazolam [From Versed] Allergy Unknown Verified 12/14/19 08:11 nortriptyline Allergy Unknown Verified 12/14/19 08:11 sumatriptan [From Imitrex] AdvReac Severe Chest Verified 12/12/19 21:06 Pain/Anxiety sumatriptan succinate * AdvReac Severe Chest Verified 12/12/19 21:06 [From Imitrex] Pain/Anxiety latex AdvReac Itching Verified 12/12/19 21:06 Anes History & Medical History - Anesthetic History Anesthesia Complications: reports: No previous complications Family history of Anesthesia Complications: Denies Family history of Malignant Hyperthermia: Denies - Medical History Cardiovascular: reports: Hypertension Pulmonary: reports: Asthma, Other Gastrointestinal: reports: Other Urinary: reports: None Neuro: reports: Migraines Musculoskeletal: reports: Fibromyalgia, Osteoporosis Endocrine/Autoimmune: reports: HyPOthyroidism Blood Disorders: reports: None Skin: reports: None Smoking Status: Current every day smoker Psychosocial: reports: Anxiety, Substance abuse (tox screen + for methamphetamine, MJ), Other (PTSD) Other Past Medical History: LEFT EAR BOTHERS HER AT TIMES. STATES CHECKED IN ED AND NO REPORTED PROBLEMS AT THIS TIME. READING GLASSES; MACULAR DEGENERATION ON RIGHT EYE. REACTIVE AIRWAY DISEASE, CPAP AT HOME - Surgical History General: Cholecystectomy Eyes Ears Nose Throat (EENT): Tonsil/Adenoidectomy Gynecologic: Hysterectomy, Oophrectomy, Mastectomy Orthopedic: Carpal Tunnel surgery Exam General: Alert, Oriented x3, Cooperative Dental: WNL Mouth Opening: Greater than 4 Fingerbreadths Neck Mobility: Normal Mallampati classification: II Thyromental Distance: 4-6 cm Respiratory: Lungs clear Cardiovascular: Regular rate Plan Anesthesia Type: General, MAC, Total IV Consent for Procedure(s) Verified and Reviewed: Yes Code Status: Attempt Resuscitation ASA classification: 3-Severe systemic disease Is this case an emergency?: No
[2019-12-14] MEDS: CIPROFLOXACIN 400 MG/200 ML 400 MG/200 ML BAG IV SCH ×2 (10:23→22:01)
[2019-12-14] MEDS: LORazepam 0.5 MG TABLET PO PRN (11:25)
[2019-12-14] MEDS: metroNIDAZOLE 500 MG/100 ML 500 MG/100 ML BAG IV SCH ×2 (11:25→19:52)
[2019-12-14] MEDS ORDERED: LACTATED RINGERS 1,000 ML IV ONE (11:40)
[2019-12-14] MEDS ORDERED: D5.45NS W/20 MEQ KCL 1,000 ML IV SCH ×2 (13:00→14:13)
--- NOTE | 2019-12-14 13:25 | PROVIDER PROGRESS NOTE ---
Assessment/Plan - Problem List (1) Colon ulcer Assessment/Plan: Patient just had colonoscopy done by GI surgeon. Colonoscopy did not find active bleeding site. patient was found to have a large deep ulceration in middle transverse colon only, And colitis affecting the meddle transverse colon Only. Surgeon also did biopsy for the patient, surgeon advised patient my to have Crohns disease and Start with Steroid, and antibiotics for colitis and follow-up GI as outpatient. According to update, patient start 40 mg Prednisone. (2) Acute colitis Conclusion/Plan: Patient report she still has some cramping in his abdomen, patient WBC slight elevated, CRP also significantly elevated. ER started antibiotics, then patient antibiotics was hold, we will start the antibiotic again. Patient likely has infectious colitis. 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 Colonoscopy did not find active bleeding site. We will continue H&H to monitor hemoglobin (4) Hypertension Stable, will resume home medications (5) Hypothyroidism Patient TSH is lower than normal, patient take 112 mcg Synthroid daily, we will reduce to the 100 mcg of Synthroid daily, advised the patient follow-up with PCP for further management (6) PTSD (post-traumatic stress disorder) Conclusion/Plan: Stable. We will continue her home medications. (7) Depression Conclusion/Plan: Stable. We will continue her home venlafaxine. (8) Hx of breast cancer Conclusion/Plan: This is in remission. Outpatient follow-up with her oncologist. - Current Meds Current Meds: Current Medications Generic Name Dose Route Start Last Admin Trade Name Miladq PRN Reason Stop Dose Admin Acetaminophen 650 mg 12/13/19 01:12 12/14/19 04:42 Tylenol PO 650 mg Q4HR PRN Administration Pain 1 to 4 Acetaminophen/Butalbital/Caffeine 1 tab 12/13/19 08:39 12/13/19 20:09 Fioricet PO 1 tab Q4HR PRN Administration HEADACHE Fluticasone Propionate 1 sprays 12/14/19 09:00 12/14/19 09:02 Flonase RAUL 1 sprays BID ELIEL Administration Gabapentin 900 mg 12/14/19 09:00 12/14/19 09:03 Neurontin PO 900 mg BID ELIEL Administration Ciprofloxacin 400 mg in 200 mls @ 200 mls/hr 12/14/19 11:00 12/14/19 11:25 Cipro 400 Mg/200 Ml IV Infused Q12H ELIEL Infusion Metronidazole 500 mg in 100 mls @ 100 mls/hr 12/14/19 11:00 12/14/19 12:25 Flagyl 500 Mg/100 Ml IV Infused Q8H ELIEL Infusion Potassium Chloride/Dextrose/Sod Cl 1,000 mls @ 125 mls/hr 12/14/19 13:00 12/14/19 13:00 D5.45ns W/20 Meq Kcl IV 125 mls/hr .Q8H ELIEL Administration Levothyroxine Sodium 100 mcg 12/13/19 08:36 12/14/19 06:16 Synthroid PO 100 mcg QDAC ELIEL Administration Lorazepam 0.5 mg 12/14/19 11:14 12/14/19 11:25 Ativan PO 0.5 mg Q8H PRN Administration Anxiety Morphine Sulfate 2 mg 12/13/19 01:12 12/14/19 08:43 Morphine (Carpuject) IVP 2 mg Q2HR PRN Administration Pain 8 to 10 Nicotine 1 patch 12/13/19 09:00 12/14/19 09:04 Nicoderm TOP 1 patch DAILY ELIEL Administration *Patient's Own( 30 mg 12/14/19 09:00 12/14/19 09:05 Dextroamphetamine/ PO Not Given Amphetamine [ DAILY ELIEL Adderall Xr 30 Mg Capsul Ondansetron HCl 4 mg 12/13/19 01:12 12/14/19 09:14 Zofran Inj IVP 4 mg Q6HR PRN Administration Nausea / Vomiting Oxybutynin Chloride 5 mg 12/14/19 09:00 12/14/19 09:03 Ditropan PO 5 mg BID ELIEL Administration Sodium Chloride 10 ml 12/13/19 01:12 12/14/19 04:42 Normal Saline Flush 0.9% IVP 10 ml PRN PRN Administration NEEDED PER PROVIDER ORDERS Sodium Chloride 10 ml 12/13/19 09:00 12/14/19 09:04 Normal Saline Flush 0.9% IVP Not Given 0100,0900,1700 ELIEL Spironolactone 75 mg 12/14/19 09:00 12/14/19 09:03 Aldactone PO 75 mg DAILY ELIEL Administration Venlafaxine HCl 150 mg 12/14/19 09:00 12/14/19 09:03 Effexor Er PO 150 mg DAILY ELIEL Administration - Lab Result Fish Bone Diagrams: 12/14/19 04:35 12/14/19 04:35 - Additional Planning My Orders: My Active Orders 12/14/19 04:35 LAMOTRIGINE [REFLAB] DAILYLAB 12/14/19 07:33 Prazosin [Minipress] 2 mg PO QPM PRN 12/14/19 09:00 Dextroamphetamine/Amphetamine [Adderall Xr 30 mg Capsule] 30 mg PO DAILY Fluticasone [Flonase] 1 sprays RAUL BID Gabapentin [Neurontin] 900 mg PO BID Oxybutynin [Ditropan] 5 mg PO BID Spironolactone [Aldactone] 75 mg PO DAILY Venlafaxine ER [Effexor ER] 150 mg PO DAILY 12/14/19 11:00 Ciprofloxacin 400 mg/200 ml [Cipro 400 mg/200 ml] 400 mg in 200 ml IV Q12H metroNIDAZOLE 500 MG/100 ML [Flagyl 500 mg/100 ml] 500 mg in 100 ml IV Q8H 12/14/19 11:14 LORazepam [Ativan] 0.5 mg PO Q8H PRN 12/14/19 Lunch Soft (Low Fiber) Diet [DIET] 12/14/19 13:00 D5.45ns W/20 Meq KCl 1,000 ml IV 125 mls/hr 12/14/19 14:00 predniSONE [Deltasone] 40 mg PO DAILYWM 12/14/19 21:00 lamoTRIgine [LaMICtal] 200 mg PO QPM lisinopriL [Zestril] 10 mg PO QPM 12/15/19 05:00 CRP - C-REACTIVE PROTEIN [CHEM] DAILYLAB 12/16/19 05:00 CRP - C-REACTIVE PROTEIN [CHEM] DAILYLAB 12/17/19 05:00 CRP - C-REACTIVE PROTEIN [CHEM] DAILYLAB Subjective - Subjective Patient Reports: Feeling Better Objective Vital Signs: Vital Signs - 24 hr 12/13/19 12/13/19 12/13/19 15:26 16:25 19:30 Temperature 36.6 C 36.6 C 36.6 C Heart Rate 74 Heart Rate [ 57 L 58 L Brachial] Heart Rate [ Radial] Respiratory 18 16 18 Rate Blood Pressure 101/66 126/68 [Left Brachial artery] O2 Saturation 100 99 100 12/13/19 12/14/19 12/14/19 20:15 00:00 04:46 Temperature 36.9 C 36.8 C Heart Rate 62 Heart Rate [ 55 L Brachial] Heart Rate [ 59 L Radial] Respiratory 18 20 16 Rate Blood Pressure 115/51 L 155/76 H [Left Brachial artery] O2 Saturation 97 100 12/14/19 12/14/19 09:00 13:01 Temperature 36.9 C Heart Rate Heart Rate [ 58 L Brachial] Heart Rate [ 56 L Radial] Respiratory 19 20 Rate Blood Pressure 114/53 L 132/78 H [Left Brachial artery] O2 Saturation 98 Oxygen O2 Source Room air I&O (Last 24 Hrs): Intake and Output Totals x24h 12/12/19 12/13/19 12/14/19 23:59 23:59 23:59 Intake Total 1000 4128.333 1425 Output Total 301 2200 Balance 1000 3827.333 -775 General: Alert, Oriented x3, No acute distress HEENT: Atraumatic Neck: Supple Lymphatic: no adenopathy Neuro: Alert, Non Focal, Oriented Times 3 Cardiovascular: Regular rate, Normal S1, Normal S2 Respiratory: Chest non-tender, No respiratory distress Abdomen: Normal bowel sounds, Soft Extremities: Normal pulses - Results Results: Laboratory Results WBC 11.4 x10^3/uL (4.8-10.8) H 12/14/19 04:35 RBC 4.04 10^6/uL (4.20-5.40) L 12/14/19 04:35 Hgb 11.6 g/dL (12.0-16.0) L 12/14/19 04:35 Hct 36.1 % (37.0-47.0) L 12/14/19 04:35 MCV 89.4 fL (81.0-99.0) 12/14/19 04:35 MCH 28.7 pg (27.0-31.0) 12/14/19 04:35 MCHC 32.1 g/dL (32.0-36.0) 12/14/19 04:35 RDW 13.4 % (12.0-15.0) 12/14/19 04:35 Plt Count 338 10^3/uL (130-450) 12/14/19 04:35 MPV 9.5 fL (7.9-10.8) 12/14/19 04:35 Neut # (Auto) 8.0 10^3/uL (1.5-6.6) H 12/14/19 04:35 Lymph # (Auto) 2.6 10^3/uL (1.5-3.5) 12/14/19 04:35 Rhea # (Auto) 0.7 10^3/uL (0.0-1.0) 12/14/19 04:35 Eos # (Auto) 0.0 10^3/uL (0.0-0.7) 12/14/19 04:35 Baso # (Auto) 0.0 10^3/uL (0.0-0.1) 12/14/19 04:35 Absolute Nucleated RBC 0.00 x10^3/uL 12/14/19 04:35 Nucleated RBC % 0.0 /100WBC 12/14/19 04:35 ESR 10 mm/Hr (0-30) 12/13/19 05:58 Sodium 137 mmol/L (135-145) 12/14/19 04:35 Potassium 3.7 mmol/L (3.5-5.0) 12/14/19 04:35 Chloride 104 mmol/L (101-111) 12/14/19 04:35 Carbon Dioxide 26 mmol/L (21-32) 12/14/19 04:35 Anion Gap 7.0 (6-13) 12/14/19 04:35 BUN 8 mg/dL (6-20) 12/14/19 04:35 Creatinine 0.7 mg/dL (0.4-1.0) 12/14/19 04:35 Estimated GFR (MDRD) 87 (>89) L 12/14/19 04:35 Glucose 82 mg/dL (70-100) 12/14/19 04:35 POC Whole Bld Glucose 77 mg/dL (70 - 100) 12/14/19 11:47 Calcium 8.6 mg/dL (8.5-10.3) 12/14/19 04:35 Phosphorus 2.9 mg/dL (2.5-4.6) 12/14/19 04:35 Magnesium 1.9 mg/dL (1.7-2.8) 12/14/19 04:35 Total Bilirubin 0.6 mg/dL (0.2-1.0) 12/12/19 21:20 AST 25 IU/L (10-42) 12/12/19 21:20 ALT 16 IU/L (10-60) 12/12/19 21:20 Alkaline Phosphatase 65 IU/L (42-121) 12/12/19 21:20 C-Reactive Protein 14.1 mg/dL (0-1.0) H 12/14/19 04:35 Total Protein 8.0 g/dL (6.7-8.2) 12/12/19 21:20 Albumin 4.4 g/dL (3.2-5.5) 12/12/19 21:20 Globulin 3.6 g/dL (2.1-4.2) 12/12/19 21:20 Albumin/Globulin Ratio 1.2 (1.0-2.2) 12/12/19 21:20 Lipase 43 U/L (22-51) 12/12/19 21:20 TSH 0.15 uIU/mL (0.34-5.60) L 12/12/19 21:20 Urine Color YELLOW 12/12/19 21:52 Urine Clarity CLEAR (CLEAR) 12/12/19 21:52 Urine pH 6.0 PH (5.0-7.5) 12/12/19 21:52 Ur Specific [place] >=1.030 (1.002-1.030) H 12/12/19 21:52 Urine Protein NEGATIVE mg/dL (NEGATIVE) 12/12/19 21:52 Urine Glucose (UA) NEGATIVE mg/dL (NEGATIVE) 12/12/19 21:52 Urine Ketones TRACE mg/dL (NEGATIVE) 12/12/19 21:52 Urine Occult Blood NEGATIVE (NEGATIVE) 12/12/19 21:52 Urine Nitrite NEGATIVE (NEGATIVE) 12/12/19 21:52 Urine Bilirubin NEGATIVE (NEGATIVE) 12/12/19 21:52 Urine Urobilinogen 0.2 (NORMAL) E.U./dL (NORMAL) 12/12/19 21:52 Ur Leukocyte Esterase NEGATIVE (NEGATIVE) 12/12/19 21:52 Ur Microscopic Review NOT INDICATED 12/12/19 21:52 Urine Culture Comments NOT INDICATED 06/24/20 21:52 Stl Occult Blood (IFOB) POSITIVE (NEGATIVE) A 12/13/19 11:30 Stl C. diff Tox B Gene NEGATIVE (NEGATIVE) 12/13/19 11:30 - Procedures Procedures: Procedures COLONOSCOPY (11/15/13) CYSTOCEL/RECTOCEL REPAIR (01/29/15) LAPAROSCOP REMOVE REMAIN OVARY (01/29/15) URIN INCONTIN REPAIR NEC (01/29/15) ABX Reporting Has patient been on IV antibiotics over the past 48 hours?: Yes Current Medications - Current Medications Current Medications: Active Medications Acetaminophen (Tylenol) 650 mg PO Q4HR PRN PRN Reason: Pain 1 to 4 Last Admin: 12/14/19 04:42 Dose: 650 mg Documented by: Acetaminophen/Butalbital/Caffeine (Fioricet) 1 tab PO Q4HR PRN PRN Reason: HEADACHE Last Admin: 12/13/19 20:09 Dose: 1 tab Documented by: Albuterol () 2.5 mg INH RTQ4H PRN PRN Reason: Wheezing Fluticasone Propionate (Flonase) 1 sprays RAUL BID [facility] Last Admin: 12/14/19 09:02 Dose: 1 sprays Documented by: Gabapentin (Neurontin) 900 mg PO BID [facility] Last Admin: 12/14/19 09:03 Dose: 900 mg Documented by: Ciprofloxacin (Cipro 400 Mg/200 Ml) 400 mg in 200 mls @ 200 mls/hr IV Q12H [facility] Last Infusion: 12/14/19 11:25 Dose: Infused Documented by: Metronidazole (Flagyl 500 Mg/100 Ml) 500 mg in 100 mls @ 100 mls/hr IV Q8H [facility] Last Infusion: 12/14/19 12:25 Dose: Infused Documented by: Potassium Chloride/Dextrose/Sod Cl (D5.45ns W/20 Meq Kcl) 1,000 mls @ 125 mls/hr IV .Q8H [facility] Last Admin: 12/14/19 13:00 Dose: 125 mls/hr Documented by: Lamotrigine (Lamictal) 200 mg PO QPM ELIEL Levothyroxine Sodium (Synthroid) 100 mcg PO QDAC [facility] Last Admin: 12/14/19 06:16 Dose: 100 mcg Documented by: Lisinopril (Zestril) 10 mg PO QPM ELIEL Lorazepam (Ativan) 0.5 mg PO Q8H PRN PRN Reason: Anxiety Last Admin: 12/14/19 11:25 Dose: 0.5 mg Documented by: Morphine Sulfate (Morphine (Carpuject)) 2 mg IVP Q2HR PRN PRN Reason: Pain 8 to 10 Last Admin: 12/14/19 08:43 Dose: 2 mg Documented by: Nicotine (Nicoderm) 1 patch TOP DAILY [facility] Last Admin: 12/14/19 09:04 Dose: 1 patch Documented by: *Patient's Own( Dextroamphetamine/Amphetamine [ Adderall Xr 30 Mg Capsul 30 mg PO DAILY [facility] Last Admin: 12/14/19 09:05 Dose: Not Given Documented by: Ondansetron HCl (Zofran Inj) 4 mg IVP Q6HR PRN PRN Reason: Nausea / Vomiting Last Admin: 12/14/19 09:14 Dose: 4 mg Documented by: Oxybutynin Chloride (Ditropan) 5 mg PO BID [facility] Last Admin: 12/14/19 09:03 Dose: 5 mg Documented by: Prazosin HCl (Minipress) 2 mg PO QPM PRN PRN Reason: Sleep Disruption/PTSD Prednisone (Deltasone) 40 mg PO DAILYWM [facility] Sodium Chloride (Normal Saline Flush 0.9%) 10 ml IVP PRN PRN PRN Reason: NEEDED PER PROVIDER ORDERS Last Admin: 12/14/19 04:42 Dose: 10 ml Documented by: Sodium Chloride (Normal Saline Flush 0.9%) 10 ml IVP 0100,0900,1700 [facility] Last Admin: 12/14/19 09:04 Dose: Not Given Documented by: Spironolactone (Aldactone) 75 mg PO DAILY [facility] Last Admin: 12/14/19 09:03 Dose: 75 mg Documented by: Venlafaxine HCl (Effexor Er) 150 mg PO DAILY [facility] Last Admin: 12/14/19 09:03 Dose: 150 mg Documented by: Albuterol Sulfate [Proair Hfa Inhaler] 2 puffs INH Q4H PRN 07/14/15 EPINEPHrine [Epinephrine] 0.3 mg IM ONCE PRN 07/14/15 Gabapentin 900 mg PO BID 07/14/15 Metoprolol Tartrate 50 mg PO DAILY 07/14/15 Oxybutynin [Ditropan] 5 mg PO BID 07/14/15 Venlafaxine HCl [Effexor Xr] 150 mg PO DAILY 07/14/15 Ondansetron HCl 4 mg PO QPM PRN 04/30/16 Denosumab [Prolia] 60 mg [id number] 05/16/17 Butalb/Acetaminophen/Caffeine [Fioricet 50-300-40 mg Capsule] 1 - 2 cap PO Q4H PRN MDD 6 caps 01/23/19 Calcium Carbonate/Vitamin D3 [Calcium 500-Vit D3 200 Tablet] 2 tab PO DAILY 01/23/19 Lansoprazole 15 mg PO DAILY 01/23/19 Levothyroxine [Synthroid] 125 mcg PO QPM 01/23/19 Metoprolol Tartrate 75 mg PO QPM 01/23/19 Potassium Chloride 20 meq PO DAILY 01/23/19 Spironolactone 75 mg PO DAILY 01/23/19 lamoTRIgine [Lamictal] 200 mg PO QPM 01/23/19 lisinopriL [Lisinopril] 10 mg PO QPM 01/23/19 Dextroamphetamine/Amphetamine [Adderall Xr 30 mg Capsule] 30 mg PO DAILY 12/13/19 Fluticasone [Flonase] 1 sprays RAUL BID 12/13/19 Prazosin HCl 2 mg PO QPM PRN 12/13/19
[2019-12-14] MEDS: predniSONE 20 MG TABLET PO SCH (13:56)
[2019-12-14 20:21] LABS: HGB - HEMOGLOBIN 11.8 g/dL (12.0-16.0)
[2019-12-14] MEDS: lamoTRIgine 100 MG TABLET PO SCH (20:49)
[2019-12-14] MEDS: lisinopriL 5 MG TABLET PO SCH (21:41)
[2019-12-15] MEDS: SODIUM CHLORIDE FLUSH 0.9% 10 ML SYRINGE IVP SCH ×3 (00:01→15:49)
[2019-12-15] MEDS: ACETAMINOPHEN 325 MG TABLET PO PRN ×3 (00:02→14:20)
[2019-12-15] MEDS: metroNIDAZOLE 500 MG/100 ML 500 MG/100 ML BAG IV SCH ×3 (02:57→18:29)
[2019-12-15] MEDS: MORPHINE 2 MG/ML CARPUJECT IVP PRN ×5 (04:15→23:41)
[2019-12-15 05:29] LABS: BASOPHILS % (AUTO) 0.1 %; LYMPHOCYTES # (AUTO) 1.5 10^3/uL (1.5-3.5); LYMPHOCYTES % (AUTO) 11.7 %; MEAN CORPUSCULAR HEMOGLOBIN 29.5 pg (27.0-31.0); MEAN CORPUSCULAR HGB CONC 33.7 g/dL (32.0-36.0); MEAN CORPUSCULAR VOLUME 87.4 fL (81.0-99.0); MEAN PLATELET VOLUME 9.4 fL (7.9-10.8); MONOCYTES # (AUTO) 0.7 10^3/uL (0.0-1.0); MONOCYTES % (AUTO) 5.9 %; NEUTROPHILS # (AUTO) 10.3 10^3/uL (1.5-6.6); NEUTROPHILS % (AUTO) 81.7 %; PLT - PLATELET COUNT 298 10^3/uL (130-450); RED BLOOD COUNT 3.73 10^6/uL (4.20-5.40); WHITE BLOOD COUNT 12.6 x10^3/uL (4.8-10.8)
[2019-12-15 05:47] LABS: CALCIUM 8.8 mg/dL (8.5-10.3); CREATININE 0.6 mg/dL (0.4-1.0); CRP - C-REACTIVE PROTEIN 10.5 mg/dL (0-1.0); PHOSPHORUS 3.1 mg/dL (2.5-4.6)
[2019-12-15] MEDS: LEVOTHYROXINE 100 MCG TABLET PO SCH (06:00)
[2019-12-15] MEDS: predniSONE 20 MG TABLET PO SCH (08:24)
[2019-12-15] MEDS: VENLAFAXINE ER 75 MG CAPSULE PO SCH (08:24)
[2019-12-15] MEDS: GABAPENTIN 300 MG CAPSULE PO SCH ×2 (08:24→21:04)
[2019-12-15] MEDS: SPIRONOLACTONE 25 MG TABLET PO SCH (08:24)
[2019-12-15] MEDS: OXYBUTYNIN 5MG TABLET PO SCH ×2 (08:24→21:04)
[2019-12-15] MEDS: NICOTINE 7 MG PATCH TOP SCH (08:25)
[2019-12-15] MEDS: DEXTROAMPHETAMINE PO SCH (09:13)
[2019-12-15] MEDS: AMPHETAMINE PO SCH (09:13)
--- NOTE | 2019-12-15 09:20 | PROVIDER PROGRESS NOTE ---
Assessment/Plan - Problem List (1) Acute colitis Assessment/Plan: She still has a tender abdomen, requiring iv Morphine for pain control. iv Flagyl and iv Cipro antibiotics continue for the colitis. Her diet was advanced to a soft, low fiber diet however this is not tolerated (she only took bites of breakfast today, then got crampy abd pain). Will de- escalate to a pureed low fiber diet. Not ready for discharge yet. (2) Acute Crohn's disease with rectal bleeding Assessment/Plan: The colonoscopy revealed a colon ulcer, biopsies were taken, the impression was that she has Crohn's disease, like her son. There has been no further rectal bleeding since before hospitalization. Hemoglobin was 13 admission then dropped to 11.5 and plateaued there. Prednisone orally was started, after the findings on colonoscopy. She is also on antibiotics for the colitis. Crohn's colitis could take several days for stabilization. I will make her an Inpatient. (3) Lower GI bleed Assessment/Plan: She has had no BMs since admission. They were probably bloody diarrhea related to the acute colitis. Her hemoglobin was 13, dropped to 11 and has plateaued and stabilized. (4) Bipolar 1 disorder Assessment/Plan: Her psych meds for PTSD, anxiety and depression have been continued while here. (5) Hypothyroidism Assessment/Plan: Her TSH at admission was excessively low at 0.15, and her home Synthroid dose was 125 mcg daily. Her Synthroid dose here has been decreased to 100 mcg daily. (6) HTN (hypertension) Assessment/Plan: She has been continued on some of her her home blood pressure meds. Will stop the Spironolactone, while she needs hydration. (7) Fibromyalgia Assessment/Plan: Her home meds for this have been continued. (8) Tobacco use Assessment/Plan: A Nicotine patch is ordered. - Current Meds Current Meds: Current Medications Generic Name Dose Route Start Last Admin Trade Name Freq PRN Reason Stop Dose Admin Acetaminophen 650 mg 12/13/19 01:12 12/15/19 06:00 Tylenol PO 650 mg Q4HR PRN Administration Pain 1 to 4 Acetaminophen/Butalbital/Caffeine 1 tab 12/13/19 08:39 12/13/19 20:09 Fioricet PO 1 tab Q4HR PRN Administration HEADACHE Fluticasone Propionate 1 sprays 12/14/19 09:00 12/14/19 20:50 Flonase RAUL 1 sprays BID ELIEL Administration Gabapentin 900 mg 12/14/19 09:00 12/15/19 08:24 Neurontin PO 900 mg BID ELIEL Administration Ciprofloxacin 400 mg in 200 mls @ 200 mls/hr 12/14/19 11:00 12/14/19 23:25 Cipro 400 Mg/200 Ml IV Infused Q12H ELIEL Infusion Metronidazole 500 mg in 100 mls @ 100 mls/hr 12/14/19 11:00 12/15/19 04:00 Flagyl 500 Mg/100 Ml IV Infused Q8H ELIEL Infusion Lamotrigine 200 mg 12/14/19 21:00 12/14/19 20:49 Lamictal PO 200 mg QPM ELIEL Administration Levothyroxine Sodium 100 mcg 12/13/19 08:36 12/15/19 06:00 Synthroid PO 100 mcg QDAC ELIEL Administration Lisinopril 10 mg 12/14/19 21:00 12/14/19 21:41 Zestril PO 10 mg QPM ELIEL Administration Lorazepam 0.5 mg 12/14/19 11:14 12/14/19 11:25 Ativan PO 0.5 mg Q8H PRN Administration Anxiety Morphine Sulfate 2 mg 12/13/19 01:12 12/15/19 08:24 Morphine (Carpuject) IVP 2 mg Q2HR PRN Administration Pain 8 to 10 Nicotine 1 patch 12/13/19 09:00 12/15/19 08:25 Nicoderm TOP 1 patch DAILY ELIEL Administration *Patient's Own( 30 mg 12/14/19 09:00 12/15/19 09:13 Dextroamphetamine/ PO Not Given Amphetamine [ DAILY ELIEL Adderall Xr 30 Mg Capsul Ondansetron HCl 4 mg 12/13/19 01:12 12/14/19 09:14 Zofran Inj IVP 4 mg Q6HR PRN Administration Nausea / Vomiting Oxybutynin Chloride 5 mg 12/14/19 09:00 12/15/19 08:24 Ditropan PO 5 mg BID ELIEL Administration Prednisone 40 mg 12/14/19 14:00 12/15/19 08:24 Deltasone PO 40 mg DAILYWM ELIEL Administration Sodium Chloride 10 ml 12/13/19 01:12 06/26/20 04:42 Normal Saline Flush 0.9% IVP 10 ml PRN PRN Administration NEEDED PER PROVIDER ORDERS Sodium Chloride 10 ml 12/13/19 09:00 12/15/19 08:27 Normal Saline Flush 0.9% IVP 10 ml 0100,0900,1700 ELIEL Administration Spironolactone 75 mg 12/14/19 09:00 12/15/19 08:24 Aldactone PO 75 mg DAILY ELIEL Administration Venlafaxine HCl 150 mg 12/14/19 09:00 12/15/19 08:24 Effexor Er PO 150 mg DAILY ELIEL Administration - Lab Result Fish Bone Diagrams: 12/15/19 05:12 12/15/19 05:12 Subjective - Subjective Patient Reports: Pain (Is a constant pressure feeling in her lower abdomen and left side. There has been no BM since admission. She is passing gas after the colonoscopy done yesterday. She is still requiring narcotics for pain control.) Objective Vital Signs: Vital Signs - 24 hr 12/14/19 12/14/19 12/14/19 13:01 13:15 13:30 Temperature Heart Rate [ 58 L 55 L 60 Brachial] Heart Rate [ Radial] Respiratory 20 16 17 Rate Blood Pressure 132/78 H 139/72 H 127/72 [Left Brachial artery] Blood Pressure [Right Brachial artery] O2 Saturation 98 12/14/19 12/14/19 12/14/19 13:55 14:30 15:35 Temperature 37.3 C Heart Rate [ 60 57 L 59 L Brachial] Heart Rate [ Radial] Respiratory 16 16 18 Rate Blood Pressure 130/75 117/79 [Left Brachial artery] Blood Pressure 128/71 [Right Brachial artery] O2 Saturation 98 97 12/14/19 12/14/19 12/14/19 16:30 19:47 21:41 Temperature 36.7 C 36.7 C Heart Rate [ 60 60 Brachial] Heart Rate [ 61 Radial] Respiratory 18 20 Rate Blood Pressure 111/67 122/80 127/55 L [Left Brachial artery] Blood Pressure [Right Brachial artery] O2 Saturation 96 96 12/15/19 12/15/19 12/15/19 00:05 04:18 08:36 Temperature 37.1 C 36.5 C 36.8 C Heart Rate [ 63 Brachial] Heart Rate [ 52 L 50 L Radial] Respiratory 20 18 18 Rate Blood Pressure 114/63 94/54 L 114/53 L [Left Brachial artery] Blood Pressure [Right Brachial artery] O2 Saturation 95 98 100 Oxygen O2 Source Room air I&O (Last 24 Hrs): Intake and Output Totals x24h 12/13/19 12/14/19 12/15/19 23:59 23:59 23:59 Intake Total 4128.333 3297.000 350 Output Total 301 2600 1700 Balance 3827.333 697.000 -1350 General: Alert, Oriented x3 HEENT: Atraumatic, EOMI, Mucous membr. moist/pink Neck: Supple, No JVD Neuro: Alert, Non Focal Cardiovascular: Regular rate Respiratory: No respiratory distress Abdomen: Soft, No masses, Other (Tender to moderate palpation in the left upper and lower quadrants and right lower quadrant. No guarding or rebound.) Extremities: No edema - Results Results: Laboratory Results WBC 12.6 x10^3/uL (4.8-10.8) H 12/15/19 05:12 RBC 3.73 10^6/uL (4.20-5.40) L 12/15/19 05:12 Hgb 11.0 g/dL (12.0-16.0) L 12/15/19 05:12 Hct 32.6 % (37.0-47.0) L 12/15/19 05:12 MCV 87.4 fL (81.0-99.0) 12/15/19 05:12 MCH 29.5 pg (27.0-31.0) 12/15/19 05:12 MCHC 33.7 g/dL (32.0-36.0) 12/15/19 05:12 RDW 13.0 % (12.0-15.0) 12/15/19 05:12 Plt Count 298 10^3/uL (130-450) 12/15/19 05:12 MPV 9.4 fL (7.9-10.8) 12/15/19 05:12 Neut # (Auto) 10.3 10^3/uL (1.5-6.6) H 12/15/19 05:12 Lymph # (Auto) 1.5 10^3/uL (1.5-3.5) 12/15/19 05:12 [place] # (Auto) 0.7 10^3/uL (0.0-1.0) 12/15/19 05:12 Eos # (Auto) 0.0 10^3/uL (0.0-0.7) 12/15/19 05:12 Baso # (Auto) 0.0 10^3/uL (0.0-0.1) 12/15/19 05:12 Absolute Nucleated RBC 0.00 x10^3/uL 12/15/19 05:12 Nucleated RBC % 0.0 /100WBC 12/15/19 05:12 ESR 10 mm/Hr (0-30) 12/13/19 05:58 Sodium 139 mmol/L (135-145) 12/15/19 05:12 Potassium 3.7 mmol/L (3.5-5.0) 12/15/19 05:12 Chloride 106 mmol/L (101-111) 12/15/19 05:12 Carbon Dioxide 25 mmol/L (21-32) 12/15/19 05:12 Anion Gap 8.0 (6-13) 12/15/19 05:12 BUN 7 mg/dL (6-20) 12/15/19 05:12 Creatinine 0.6 mg/dL (0.4-1.0) 12/15/19 05:12 Estimated GFR (MDRD) 103 (>89) 12/15/19 05:12 Glucose 139 mg/dL (70-100) H 12/15/19 05:12 POC Whole Bld Glucose 145 mg/dL (70 - 100) H 12/14/19 16:26 Calcium 8.8 mg/dL (8.5-10.3) 12/15/19 05:12 Phosphorus 3.1 mg/dL (2.5-4.6) 12/15/19 05:12 Magnesium 2.0 mg/dL (1.7-2.8) 12/15/19 05:12 Total Bilirubin 0.6 mg/dL (0.2-1.0) 12/12/19 21:20 AST 25 IU/L (10-42) 12/12/19 21:20 ALT 16 IU/L (10-60) 12/12/19 21:20 Alkaline Phosphatase 65 IU/L (42-121) 12/12/19 21:20 C-Reactive Protein 10.5 mg/dL (0-1.0) H 12/15/19 05:12 Total Protein 8.0 g/dL (6.7-8.2) 12/12/19 21:20 Albumin 4.4 g/dL (3.2-5.5) 12/12/19 21:20 Globulin 3.6 g/dL (2.1-4.2) 12/12/19 21:20 Albumin/Globulin Ratio 1.2 (1.0-2.2) 12/12/19 21:20 Lipase 43 U/L (22-51) 12/12/19 21:20 TSH 0.15 uIU/mL (0.34-5.60) L 12/12/19 21:20 Urine Color YELLOW 12/12/19 21:52 Urine Clarity CLEAR (CLEAR) 12/12/19 21:52 Urine pH 6.0 PH (5.0-7.5) 12/12/19 21:52 Ur Specific [place] >=1.030 (1.002-1.030) H 12/12/19 21:52 Urine Protein NEGATIVE mg/dL (NEGATIVE) 12/12/19 21:52 Urine Glucose (UA) NEGATIVE mg/dL (NEGATIVE) 12/12/19 21:52 Urine Ketones TRACE mg/dL (NEGATIVE) 12/12/19 21:52 Urine Occult Blood NEGATIVE (NEGATIVE) 12/12/19 21:52 Urine Nitrite NEGATIVE (NEGATIVE) 12/12/19 21:52 Urine Bilirubin NEGATIVE (NEGATIVE) 12/12/19 21:52 Urine Urobilinogen 0.2 (NORMAL) E.U./dL (NORMAL) 12/12/19 21:52 Ur Leukocyte Esterase NEGATIVE (NEGATIVE) 12/12/19 21:52 Ur Microscopic Review NOT INDICATED 12/12/19 21:52 Urine Culture Comments NOT INDICATED 12/12/19 21:52 Stl Occult Blood (IFOB) POSITIVE (NEGATIVE) A 12/13/19 11:30 Stl C. diff Tox B Gene NEGATIVE (NEGATIVE) 12/13/19 11:30 - Procedures Procedures: Procedures COLONOSCOPY (11/15/13) CYSTOCEL/RECTOCEL REPAIR (01/29/15) LAPAROSCOP REMOVE REMAIN OVARY (01/29/15) URIN INCONTIN REPAIR NEC (01/29/15)
[2019-12-15] MEDS: FLUTICASONE NASAL SPRAY NAS SCH ×2 (09:23→21:04)
[2019-12-15] MEDS: CIPROFLOXACIN 400 MG/200 ML 400 MG/200 ML BAG IV SCH ×2 (10:11→22:01)
[2019-12-15] MEDS ORDERED: polyethylene glycoL 3350 17 GM PACKET PO SCH (12:00)
[2019-12-15] MEDS: D5.45NS W/20 MEQ KCL 1,000 ML IV SCH (12:30)
[2019-12-15] MEDS: LORazepam 0.5 MG TABLET PO PRN (14:20)
[2019-12-15] MEDS: lamoTRIgine 100 MG TABLET PO SCH (21:04)
[2019-12-15] MEDS: lisinopriL 5 MG TABLET PO SCH (21:05)
[2019-12-16] MEDS: SODIUM CHLORIDE FLUSH 0.9% 10 ML SYRINGE IVP SCH ×3 (01:34→17:34)
[2019-12-16] MEDS: LORazepam 0.5 MG TABLET PO PRN ×2 (01:56→18:27)
[2019-12-16] MEDS: D5.45NS W/20 MEQ KCL 1,000 ML IV SCH ×3 (02:19→18:22)
[2019-12-16] MEDS: metroNIDAZOLE 500 MG/100 ML 500 MG/100 ML BAG IV SCH ×3 (02:23→18:21)
[2019-12-16 06:10] LABS: BASOPHILS % (AUTO) 0.2 %; EOSINOPHILS % (AUTO) 0.4 %; HGB - HEMOGLOBIN 10.4 g/dL (12.0-16.0); LYMPHOCYTES # (AUTO) 3.1 10^3/uL (1.5-3.5); LYMPHOCYTES % (AUTO) 28.5 %; MEAN CORPUSCULAR HGB CONC 31.4 g/dL (32.0-36.0); MEAN CORPUSCULAR VOLUME 92.2 fL (81.0-99.0); MEAN PLATELET VOLUME 10.8 fL (7.9-10.8); MONOCYTES # (AUTO) 0.7 10^3/uL (0.0-1.0); MONOCYTES % (AUTO) 6.1 %; NEUTROPHILS # (AUTO) 6.9 10^3/uL (1.5-6.6); NEUTROPHILS % (AUTO) 64.3 %; PLT - PLATELET COUNT 228 10^3/uL (130-450); RED BLOOD COUNT 3.59 10^6/uL (4.20-5.40); RED CELL DISTRIBUTION WIDTH 13.4 % (12.0-15.0); WHITE BLOOD COUNT 10.7 x10^3/uL (4.8-10.8)
[2019-12-16 06:29] LABS: CALCIUM 8.4 mg/dL (8.5-10.3); CREATININE 0.6 mg/dL (0.4-1.0)
[2019-12-16] MEDS: LEVOTHYROXINE 100 MCG TABLET PO SCH (07:16)
[2019-12-16] MEDS: DEXTROAMPHETAMINE PO SCH (08:10)
[2019-12-16] MEDS: AMPHETAMINE PO SCH (08:10)
[2019-12-16] MEDS: FLUTICASONE NASAL SPRAY NAS SCH ×2 (08:11→21:02)
[2019-12-16] MEDS: predniSONE 20 MG TABLET PO SCH (08:41)
[2019-12-16] MEDS: SPIRONOLACTONE 25 MG TABLET PO SCH (08:42)
[2019-12-16] MEDS: GABAPENTIN 300 MG CAPSULE PO SCH ×2 (08:42→21:00)
[2019-12-16] MEDS: OXYBUTYNIN 5MG TABLET PO SCH ×2 (08:42→21:00)
[2019-12-16] MEDS: VENLAFAXINE ER 75 MG CAPSULE PO SCH (08:43)
[2019-12-16] MEDS: NICOTINE 7 MG PATCH TOP SCH (08:55)
[2019-12-16] MEDS: CIPROFLOXACIN 400 MG/200 ML 400 MG/200 ML BAG IV SCH (11:00)
[2019-12-16] MEDS: ACETAMINOPHEN 325 MG TABLET PO PRN ×2 (11:10→19:15)
--- NOTE | 2019-12-16 11:56 | PROVIDER PROGRESS NOTE ---
Assessment/Plan - Problem List (1) Acute colitis Assessment/Plan: Yesterday the soft diet was de-escalated toRate and then even further de- escalated to full liquids. Continue with full liquids to help with bowel rest. Continue IV antibiotics and steroids. Patient not ready for discharge yet. (2) Acute Crohn's disease with rectal bleeding Assessment/Plan: This was the impression of the general surgeon performing the colonoscopy. An ulcer was found at the transverse colon, biopsies were taken and are still pending. Oral steroids have been started. Patient now reports that she has lost 60 pounds over the past 6 months, thought it was her breast cancer recurring but oncologist ran test and everything is negative. She now thinks that it was the beginning of Crohn's disease starting to give her symptoms of poor appetite. (3) Lower GI bleed Assessment/Plan: No further lower GI bleeding since admitted, no BMs since admitted. She is passing gas. Hemoglobin has stabilized, except for what is expected with hemodilution. (4) Bipolar 1 disorder Assessment/Plan: Stable on her home med doses. (5) Hypothyroidism Assessment/Plan: Her TSH at admission was excessively low at 0.15, and her home Synthroid dose was 125 mcg daily. Her Synthroid dose here has been decreased to 100 mcg daily. (6) HTN (hypertension) Assessment/Plan: She has been continued on some of her her home blood pressure meds. We stopped the Spironolactone, while she needs hydration. (7) Fibromyalgia Assessment/Plan: Her home meds for this have been continued. (8) Tobacco use Assessment/Plan: A Nicotine patch is ordered. - Current Meds Current Meds: Current Medications Generic Name Dose Route Start Last Admin Trade Name Freq PRN Reason Stop Dose Admin Acetaminophen 650 mg 12/13/19 01:12 12/16/19 11:10 Tylenol PO 650 mg Q4HR PRN Administration Pain 1 to 4 Acetaminophen/Butalbital/Caffeine 1 tab 12/13/19 08:39 12/13/19 20:09 Fioricet PO 1 tab Q4HR PRN Administration HEADACHE Fluticasone Propionate 1 sprays 12/14/19 09:00 12/16/19 08:11 Flonase RAUL 1 spr BID ELIEL Administration Gabapentin 900 mg 12/14/19 09:00 12/16/19 08:42 Neurontin PO 900 mg BID ELIEL Administration Ciprofloxacin 400 mg in 200 mls @ 200 mls/hr 12/14/19 11:00 12/16/19 11:00 Cipro 400 Mg/200 Ml IV 200 mls/hr Q12H ELIEL Administration Metronidazole 500 mg in 100 mls @ 100 mls/hr 12/14/19 11:00 12/16/19 03:31 Flagyl 500 Mg/100 Ml IV Infused Q8H ELIEL Infusion Potassium Chloride/Dextrose/Sod Cl 1,000 mls @ 83.333 mls/hr 12/15/19 10:00 12/16/19 02:19 D5.45ns W/20 Meq Kcl IV 83.33 mls/hr .Q12H ELIEL Administration Lamotrigine 200 mg 12/14/19 21:00 12/15/19 21:04 Lamictal PO 200 mg QPM ELIEL Administration Levothyroxine Sodium 100 mcg 12/13/19 08:36 12/16/19 07:16 Synthroid PO 100 mcg QDAC ELIEL Administration Lisinopril 10 mg 12/14/19 21:00 12/15/19 21:05 Zestril PO 10 mg QPM ELIEL Administration Lorazepam 0.5 mg 12/14/19 11:14 12/16/19 01:56 Ativan PO 0.5 mg Q8H PRN Administration Anxiety Morphine Sulfate 2 mg 12/13/19 01:12 12/15/19 23:41 Morphine (Carpuject) IVP 2 mg Q2HR PRN Administration Pain 8 to 10 Nicotine 1 patch 12/13/19 09:00 12/16/19 08:55 Nicoderm TOP 1 patch DAILY ELIEL Administration *Patient's Own( 30 mg 12/14/19 09:00 12/16/19 08:10 Dextroamphetamine/ PO Not Given Amphetamine [ DAILY ELIEL Adderall Xr 30 Mg Capsul Ondansetron HCl 4 mg 12/13/19 01:12 12/14/19 09:14 Zofran Inj IVP 4 mg Q6HR PRN Administration Nausea / Vomiting Oxybutynin Chloride 5 mg 12/14/19 09:00 12/16/19 08:42 Ditropan PO 5 mg BID ELIEL Administration Prednisone 40 mg 12/14/19 14:00 12/16/19 08:41 Deltasone PO 40 mg DAILYWM ELIEL Administration Sodium Chloride 10 ml 12/13/19 01:12 12/14/19 04:42 Normal Saline Flush 0.9% IVP 10 ml PRN PRN Administration NEEDED PER PROVIDER ORDERS Sodium Chloride 10 ml 12/13/19 09:00 12/16/19 08:56 Normal Saline Flush 0.9% IVP Not Given 0100,0900,1700 ELIEL Spironolactone 75 mg 12/14/19 09:00 12/16/19 08:42 Aldactone PO 75 mg DAILY ELIEL Administration Venlafaxine HCl 150 mg 12/14/19 09:00 12/16/19 08:43 Effexor Er PO 150 mg DAILY ELIEL Administration - Lab Result Fish Bone Diagrams: 12/16/19 05:34 12/16/19 05:34 - Additional Planning My Orders: My Active Orders 12/15/19 Dinner DIET [Full Liquid Diet] [DIET] Subjective - Subjective Patient Reports: Pain (Generalized abdominal pain has become more focused in the lower quadrants. She is passing gas.) Objective Vital Signs: Vital Signs - 24 hr 12/15/19 12/15/19 12/15/19 15:38 20:50 23:26 Temperature 37.0 C 36.7 C 36.6 C Heart Rate [ 65 52 L 56 L Brachial] Heart Rate [ Radial] Respiratory 16 20 18 Rate Blood Pressure 122/64 133/75 H 118/70 [Left Brachial artery] O2 Saturation 95 100 96 12/16/19 12/16/19 05:00 08:16 Temperature 36.7 C 36.7 C Heart Rate [ Brachial] Heart Rate [ 60 58 L Radial] Respiratory 20 12 Rate Blood Pressure 127/82 H 124/68 [Left Brachial artery] O2 Saturation 96 98 Oxygen O2 Source Room air I&O (Last 24 Hrs): Intake and Output Totals x24h 12/14/19 12/15/19 12/16/19 23:59 23:59 23:59 Intake Total 3297.000 2228.878 614.989 Output Total 2600 3625 650 Balance 697.000 -1396.122 -35.011 General: Alert, Oriented x3 HEENT: Atraumatic, EOMI Neck: Supple, No JVD Neuro: Alert, Non Focal Cardiovascular: Regular rate Respiratory: No respiratory distress Abdomen: Soft, Other (Diminished bowel sounds in all 4 quadrants, no guarding or rebound or tenderness) Extremities: No edema - Results Results: Laboratory Results WBC 10.7 x10^3/uL (4.8-10.8) 12/16/19 05:34 RBC 3.59 10^6/uL (4.20-5.40) L 12/16/19 05:34 Hgb 10.4 g/dL (12.0-16.0) L 12/16/19 05:34 Hct 33.1 % (37.0-47.0) L 12/16/19 05:34 MCV 92.2 fL (81.0-99.0) 12/16/19 05:34 MCH 29.0 pg (27.0-31.0) 12/16/19 05:34 MCHC 31.4 g/dL (32.0-36.0) L 12/16/19 05:34 RDW 13.4 % (12.0-15.0) 12/16/19 05:34 Plt Count 228 10^3/uL (130-450) 12/16/19 05:34 MPV 10.8 fL (7.9-10.8) 12/16/19 05:34 Neut # (Auto) 6.9 10^3/uL (1.5-6.6) H 12/16/19 05:34 Lymph # (Auto) 3.1 10^3/uL (1.5-3.5) 12/16/19 05:34 [place] # (Auto) 0.7 10^3/uL (0.0-1.0) 12/16/19 05:34 Eos # (Auto) 0.0 10^3/uL (0.0-0.7) 12/16/19 05:34 Baso # (Auto) 0.0 10^3/uL (0.0-0.1) 12/16/19 05:34 Absolute Nucleated RBC 0.00 x10^3/uL 12/16/19 05:34 Nucleated RBC % 0.0 /100WBC 12/16/19 05:34 ESR 10 mm/Hr (0-30) 12/13/19 05:58 Sodium 137 mmol/L (135-145) 12/16/19 05:34 Potassium 3.6 mmol/L (3.5-5.0) 12/16/19 05:34 Chloride 105 mmol/L (101-111) 12/16/19 05:34 Carbon Dioxide 26 mmol/L (21-32) 12/16/19 05:34 Anion Gap 6.0 (6-13) 12/16/19 05:34 BUN 5 mg/dL (6-20) L 12/16/19 05:34 Creatinine 0.6 mg/dL (0.4-1.0) 12/16/19 05:34 Estimated GFR (MDRD) 103 (>89) 12/16/19 05:34 Glucose 101 mg/dL (70-100) H 12/16/19 05:34 POC Whole Bld Glucose 145 mg/dL (70 - 100) H 12/14/19 16:26 Calcium 8.4 mg/dL (8.5-10.3) L 12/16/19 05:34 Phosphorus 3.1 mg/dL (2.5-4.6) 12/15/19 05:12 Magnesium 2.0 mg/dL (1.7-2.8) 12/15/19 05:12 Total Bilirubin 0.6 mg/dL (0.2-1.0) 12/12/19 21:20 AST 25 IU/L (10-42) 12/12/19 21:20 ALT 16 IU/L (10-60) 12/12/19 21:20 Alkaline Phosphatase 65 IU/L (42-121) 12/12/19 21:20 C-Reactive Protein 3.0 mg/dL (0-1.0) H 12/16/19 05:34 Total Protein 8.0 g/dL (6.7-8.2) 12/12/19 21:20 Albumin 4.4 g/dL (3.2-5.5) 12/12/19 21:20 Globulin 3.6 g/dL (2.1-4.2) 12/12/19 21:20 Albumin/Globulin Ratio 1.2 (1.0-2.2) 12/12/19 21:20 Lipase 43 U/L (22-51) 12/12/19 21:20 TSH 0.15 uIU/mL (0.34-5.60) L 12/12/19 21:20 Urine Color YELLOW 12/12/19 21:52 Urine Clarity CLEAR (CLEAR) 12/12/19 21:52 Urine pH 6.0 PH (5.0-7.5) 12/12/19 21:52 Ur Specific [place] >=1.030 (1.002-1.030) H 12/12/19 21:52 Urine Protein NEGATIVE mg/dL (NEGATIVE) 12/12/19 21:52 Urine Glucose (UA) NEGATIVE mg/dL (NEGATIVE) 12/12/19 21:52 Urine Ketones TRACE mg/dL (NEGATIVE) 12/12/19 21:52 Urine Occult Blood NEGATIVE (NEGATIVE) 12/12/19 21:52 Urine Nitrite NEGATIVE (NEGATIVE) 12/12/19 21:52 Urine Bilirubin NEGATIVE (NEGATIVE) 12/12/19 21:52 Urine Urobilinogen 0.2 (NORMAL) E.U./dL (NORMAL) 12/12/19 21:52 Ur Leukocyte Esterase NEGATIVE (NEGATIVE) 12/12/19 21:52 Ur Microscopic Review NOT INDICATED 12/12/19 21:52 Urine Culture Comments NOT INDICATED 12/12/19 21:52 Stl Occult Blood (IFOB) POSITIVE (NEGATIVE) A 12/13/19 11:30 Stl C. diff Tox B Gene NEGATIVE (NEGATIVE) 12/13/19 11:30 - Procedures Procedures: Procedures COLONOSCOPY (11/15/13) CYSTOCEL/RECTOCEL REPAIR (01/29/15) LAPAROSCOP REMOVE REMAIN OVARY (01/29/15) URIN INCONTIN REPAIR NEC (01/29/15)
[2019-12-16] MEDS: MORPHINE 2 MG/ML CARPUJECT IVP PRN ×3 (12:36→21:01)
[2019-12-16] MEDS: SODIUM CHLORIDE FLUSH 0.9% 10 ML SYRINGE IVP PRN (12:41)
[2019-12-16] MEDS: BUTALB/ACETAM/CAFF 50/325/40MG TABLET PO PRN (19:15)
[2019-12-16] MEDS: lisinopriL 5 MG TABLET PO SCH (21:00)
[2019-12-16] MEDS: lamoTRIgine 100 MG TABLET PO SCH (21:00)
[2019-12-17] MEDS: MORPHINE 2 MG/ML CARPUJECT IVP PRN ×4 (00:17→09:38)
[2019-12-17] MEDS: CIPROFLOXACIN 400 MG/200 ML 400 MG/200 ML BAG IV SCH ×3 (00:17→23:56)
[2019-12-17] MEDS: SODIUM CHLORIDE FLUSH 0.9% 10 ML SYRINGE IVP SCH ×3 (02:15→15:40)
[2019-12-17] MEDS: LORazepam 0.5 MG TABLET PO PRN ×3 (03:04→20:47)
[2019-12-17] MEDS: metroNIDAZOLE 500 MG/100 ML 500 MG/100 ML BAG IV SCH ×3 (03:31→18:31)
[2019-12-17] MEDS: SODIUM CHLORIDE FLUSH 0.9% 10 ML SYRINGE IVP PRN ×2 (04:13→04:37)
[2019-12-17] MEDS: ACETAMINOPHEN 325 MG TABLET PO PRN ×2 (05:23→10:20)
[2019-12-17 05:28] LABS: BASOPHILS % (AUTO) 0.2 %; HGB - HEMOGLOBIN 10.6 g/dL (12.0-16.0); LYMPHOCYTES # (AUTO) 2.9 10^3/uL (1.5-3.5); MEAN CORPUSCULAR HEMOGLOBIN 30.8 pg (27.0-31.0); MEAN CORPUSCULAR VOLUME 90.7 fL (81.0-99.0); MEAN PLATELET VOLUME 9.3 fL (7.9-10.8); MONOCYTES # (AUTO) 0.9 10^3/uL (0.0-1.0); MONOCYTES % (AUTO) 7.4 %; NEUTROPHILS # (AUTO) 7.7 10^3/uL (1.5-6.6); NEUTROPHILS % (AUTO) 66.9 %; PLT - PLATELET COUNT 339 10^3/uL (130-450); RED BLOOD COUNT 3.44 10^6/uL (4.20-5.40); RED CELL DISTRIBUTION WIDTH 13.6 % (12.0-15.0); WHITE BLOOD COUNT 11.5 x10^3/uL (4.8-10.8)
[2019-12-17 05:47] LABS: CALCIUM 8.7 mg/dL (8.5-10.3); CREATININE 0.8 mg/dL (0.4-1.0); CRP - C-REACTIVE PROTEIN 1.1 mg/dL (0-1.0)
[2019-12-17] MEDS: LEVOTHYROXINE 100 MCG TABLET PO SCH (06:00)
[2019-12-17] MEDS ORDERED: POTASSIUM CHLORIDE 20 MEQ TABLET PO ONE (07:23)
[2019-12-17] MEDS: GABAPENTIN 300 MG CAPSULE PO SCH ×2 (10:21→20:47)
[2019-12-17] MEDS: predniSONE 20 MG TABLET PO SCH (10:21)
[2019-12-17] MEDS: VENLAFAXINE ER 75 MG CAPSULE PO SCH (10:21)
[2019-12-17] MEDS: OXYBUTYNIN 5MG TABLET PO SCH ×2 (10:22→20:47)
[2019-12-17] MEDS: SPIRONOLACTONE 25 MG TABLET PO SCH (10:22)
[2019-12-17] MEDS: NICOTINE 7 MG PATCH TOP SCH (10:23)
[2019-12-17] MEDS: AMPHETAMINE PO SCH (10:23)
[2019-12-17] MEDS: DEXTROAMPHETAMINE PO SCH (10:23)
[2019-12-17] MEDS: FLUTICASONE NASAL SPRAY NAS SCH ×2 (10:25→20:47)
[2019-12-17] MEDS: D5.45NS W/20 MEQ KCL 1,000 ML IV SCH ×2 (10:25→23:56)
--- NOTE | 2019-12-17 12:22 | PROVIDER PROGRESS NOTE ---
Assessment/Plan - Problem List (1) Acute colitis Assessment/Plan: Her diet is being advanced very slowly because of continued pain. She is still on IV antibiotics and getting oral steroids. Will obtain a KUB abdominal imaging to determine if she has an ileus, or constipation, or any complications after the biopsy. (2) Acute Crohn's disease with rectal bleeding Assessment/Plan: She got tearful speaking about her new diagnosis because she has seen her son dealing with Crohn's for 27 years. No more rectal bleeding since she was admitted. No BMs since admission and bowel sounds are still diminished. Continue plan as in #1. (3) Lower GI bleed Assessment/Plan: The hemoglobin dropped from 13 to 11 and then plateaued. (4) Bipolar 1 disorder Assessment/Plan: She got tearful speaking about her new diagnosis because she has seen her son dealing with Crohn's for 27 years, Her home meds continue for anxiety and depression while here. (5) Hypokalemia Assessment/Plan: Related to inadequate p.o. intake. We will replace with IV K riders. Follow BMP daily. (6) Hypothyroidism Assessment/Plan: She remains on her home thyroid dose here (7) HTN (hypertension) Assessment/Plan: Blood pressure is controlled, she continues on her home meds for this (8) Fibromyalgia Assessment/Plan: She is getting morphine, will be changed to Dilaudid which is treating all her pain complaints. (9) Tobacco use Assessment/Plan: She is getting a nicotine patch while here. - Current Meds Current Meds: Current Medications Generic Name Dose Route Start Last Admin Trade Name Freq PRN Reason Stop Dose Admin Acetaminophen 650 mg 12/13/19 01:12 12/17/19 10:20 Tylenol PO 650 mg Q4HR PRN Administration Pain 1 to 4 Acetaminophen/Butalbital/Caffeine 1 tab 12/13/19 08:39 12/16/19 19:15 Fioricet PO 1 tab Q4HR PRN Administration HEADACHE Fluticasone Propionate 1 sprays 12/14/19 09:00 12/17/19 10:25 Flonase RAUL 1 spr BID ELIEL Administration Gabapentin 900 mg 12/14/19 09:00 12/17/19 10:21 Neurontin PO 900 mg BID ELIEL Administration Ciprofloxacin 400 mg in 200 mls @ 200 mls/hr 12/14/19 11:00 12/17/19 10:25 Cipro 400 Mg/200 Ml IV 200 mls/hr Q12H ELIEL Administration Metronidazole 500 mg in 100 mls @ 100 mls/hr 12/14/19 11:00 12/17/19 11:50 Flagyl 500 Mg/100 Ml IV 100 mls/hr Q8H ELIEL Administration Potassium Chloride/Dextrose/Sod Cl 1,000 mls @ 83.333 mls/hr 12/15/19 10:00 12/17/19 10:25 D5.45ns W/20 Meq Kcl IV 83.33 mls/hr .Q12H ELIEL Administration Lamotrigine 200 mg 12/14/19 21:00 12/16/19 21:00 Lamictal PO 200 mg QPM ELIEL Administration Levothyroxine Sodium 100 mcg 12/13/19 08:36 12/17/19 06:00 Synthroid PO 100 mcg QDAC ELIEL Administration Lisinopril 10 mg 12/14/19 21:00 12/16/19 21:00 Zestril PO 10 mg QPM ELIEL Administration Lorazepam 0.5 mg 12/14/19 11:14 12/17/19 10:50 Ativan PO 0.5 mg Q8H PRN Administration Anxiety Morphine Sulfate 2 mg 12/13/19 01:12 12/17/19 09:38 Morphine (Carpuject) IVP 2 mg Q2HR PRN Administration Pain 8 to 10 Nicotine 1 patch 12/13/19 09:00 12/17/19 10:23 Nicoderm TOP 1 patch DAILY ELIEL Administration *Patient's Own( 30 mg 12/14/19 09:00 12/17/19 10:23 Dextroamphetamine/ PO Not Given Amphetamine [ DAILY ELIEL Adderall Xr 30 Mg Capsul Ondansetron HCl 4 mg 12/13/19 01:12 12/14/19 09:14 Zofran Inj IVP 4 mg Q6HR PRN Administration Nausea / Vomiting Oxybutynin Chloride 5 mg 12/14/19 09:00 12/17/19 10:22 Ditropan PO 5 mg BID ELIEL Administration Prednisone 40 mg 12/14/19 14:00 12/17/19 10:21 Deltasone PO 40 mg DAILYWM ELIEL Administration Sodium Chloride 10 ml 12/13/19 01:12 12/17/19 04:37 Normal Saline Flush 0.9% IVP 10 ml PRN PRN Administration NEEDED PER PROVIDER ORDERS Sodium Chloride 10 ml 12/13/19 09:00 12/17/19 10:25 Normal Saline Flush 0.9% IVP 10 ml 0100,0900,1700 ELIEL Administration Spironolactone 75 mg 12/14/19 09:00 12/17/19 10:22 Aldactone PO 75 mg DAILY ELIEL Administration Venlafaxine HCl 150 mg 12/14/19 09:00 12/17/19 10:21 Effexor Er PO 150 mg DAILY ELIEL Administration - Lab Result Fish Bone Diagrams: 12/17/19 05:14 12/17/19 05:14 - Additional Planning My Orders: My Active Orders 12/17/19 Breakfast DIET [Dysphagia Advanced Diet] [DIET] Subjective - Subjective Patient Reports: Other (No change, has focalized tenderness in the left lower and right lower quadrants. She got tearful speaking about her new diagnosis because she has seen her son dealing with Crohn's for 27 years,) Nursing Reports: Other (Tolerating her full, liquids advanced to soft) Objective Vital Signs: Vital Signs - 24 hr 12/16/19 12/16/19 12/16/19 13:00 15:50 20:04 Temperature 36.9 C 36.6 C 36.9 C Heart Rate [ 70 56 L Brachial] Heart Rate [ 67 Radial] Respiratory 17 16 24 Rate Blood Pressure 157/92 H 136/83 H 152/90 H [Left Brachial artery] O2 Saturation 98 100 98 12/17/19 12/17/19 12/17/19 00:18 04:39 08:19 Temperature 37.1 C 36.7 C 36.6 C Heart Rate [ 54 L 55 L 65 Brachial] Heart Rate [ Radial] Respiratory 16 18 16 Rate Blood Pressure 136/79 H 118/65 114/62 [Left Brachial artery] O2 Saturation 96 96 98 Oxygen O2 Source Room air I&O (Last 24 Hrs): Intake and Output Totals x24h 12/15/19 12/16/19 12/17/19 23:59 23:59 23:59 Intake Total 2228.878 2854.989 2055.000 Output Total 3625 3450 1000 Balance -1396.122 -538.343 1624.000 General: Alert, Oriented x3 HEENT: Atraumatic, EOMI Neck: Supple, No thyromegaly Neuro: Alert, Non Focal Cardiovascular: Regular rate Respiratory: No respiratory distress Abdomen: Normal bowel sounds, Soft, Other (Minimal bowel sounds. No guarding or rebound.) Extremities: No edema, No tenderness/swelling - Results Results: Laboratory Results WBC 11.5 x10^3/uL (4.8-10.8) H 12/17/19 05:14 RBC 3.44 10^6/uL (4.20-5.40) L 12/17/19 05:14 Hgb 10.6 g/dL (12.0-16.0) L 12/17/19 05:14 Hct 31.2 % (37.0-47.0) L 12/17/19 05:14 MCV 90.7 fL (81.0-99.0) 12/17/19 05:14 MCH 30.8 pg (27.0-31.0) 12/17/19 05:14 MCHC 34.0 g/dL (32.0-36.0) 12/17/19 05:14 RDW 13.6 % (12.0-15.0) 12/17/19 05:14 Plt Count 339 10^3/uL (130-450) 12/17/19 05:14 MPV 9.3 fL (7.9-10.8) 12/17/19 05:14 Neut # (Auto) 7.7 10^3/uL (1.5-6.6) H 12/17/19 05:14 Lymph # (Auto) 2.9 10^3/uL (1.5-3.5) 12/17/19 05:14 [place] # (Auto) 0.9 10^3/uL (0.0-1.0) 12/17/19 05:14 Eos # (Auto) 0.0 10^3/uL (0.0-0.7) 12/17/19 05:14 Baso # (Auto) 0.0 10^3/uL (0.0-0.1) 12/17/19 05:14 Absolute Nucleated RBC 0.00 x10^3/uL 12/17/19 05:14 Nucleated RBC % 0.0 /100WBC 12/17/19 05:14 ESR 10 mm/Hr (0-30) 12/13/19 05:58 Sodium 138 mmol/L (135-145) 12/17/19 05:14 Potassium 3.3 mmol/L (3.5-5.0) L 12/17/19 05:14 Chloride 105 mmol/L (101-111) 12/17/19 05:14 Carbon Dioxide 26 mmol/L (21-32) 12/17/19 05:14 Anion Gap 7.0 (6-13) 12/17/19 05:14 BUN 6 mg/dL (6-20) 12/17/19 05:14 Creatinine 0.8 mg/dL (0.4-1.0) 12/17/19 05:14 Estimated GFR (MDRD) 74 (>89) L 12/17/19 05:14 Glucose 97 mg/dL (70-100) 12/17/19 05:14 POC Whole Bld Glucose 145 mg/dL (70 - 100) H 12/14/19 16:26 Calcium 8.7 mg/dL (8.5-10.3) 12/17/19 05:14 Phosphorus 3.1 mg/dL (2.5-4.6) 12/15/19 05:12 Magnesium 2.0 mg/dL (1.7-2.8) 12/15/19 05:12 Total Bilirubin 0.6 mg/dL (0.2-1.0) 12/12/19 21:20 AST 25 IU/L (10-42) 12/12/19 21:20 ALT 16 IU/L (10-60) 12/12/19 21:20 Alkaline Phosphatase 65 IU/L (42-121) 12/12/19 21:20 C-Reactive Protein 1.1 mg/dL (0-1.0) H 12/17/19 05:14 Total Protein 8.0 g/dL (6.7-8.2) 12/12/19 21:20 Albumin 4.4 g/dL (3.2-5.5) 12/12/19 21:20 Globulin 3.6 g/dL (2.1-4.2) 12/12/19 21:20 Albumin/Globulin Ratio 1.2 (1.0-2.2) 12/12/19 21:20 Lipase 43 U/L (22-51) 12/12/19 21:20 TSH 0.15 uIU/mL (0.34-5.60) L 12/12/19 21:20 Urine Color YELLOW 12/12/19 21:52 Urine Clarity CLEAR (CLEAR) 12/12/19 21:52 Urine pH 6.0 PH (5.0-7.5) 12/12/19 21:52 Ur Specific [place] >=1.030 (1.002-1.030) H 12/12/19 21:52 Urine Protein NEGATIVE mg/dL (NEGATIVE) 12/12/19 21:52 Urine Glucose (UA) NEGATIVE mg/dL (NEGATIVE) 12/12/19 21:52 Urine Ketones TRACE mg/dL (NEGATIVE) 12/12/19 21:52 Urine Occult Blood NEGATIVE (NEGATIVE) 12/12/19 21:52 Urine Nitrite NEGATIVE (NEGATIVE) 12/12/19 21:52 Urine Bilirubin NEGATIVE (NEGATIVE) 12/12/19 21:52 Urine Urobilinogen 0.2 (NORMAL) E.U./dL (NORMAL) 12/12/19 21:52 Ur Leukocyte Esterase NEGATIVE (NEGATIVE) 12/12/19 21:52 Ur Microscopic Review NOT INDICATED 12/12/19 21:52 Urine Culture Comments NOT INDICATED 12/12/19 21:52 Stl Occult Blood (IFOB) POSITIVE (NEGATIVE) A 12/13/19 11:30 Stl C. diff Tox B Gene NEGATIVE (NEGATIVE) 12/13/19 11:30 - Procedures Procedures: Procedures COLONOSCOPY (11/15/13) CYSTOCEL/RECTOCEL REPAIR (01/29/15) LAPAROSCOP REMOVE REMAIN OVARY (01/29/15) URIN INCONTIN REPAIR NEC (01/29/15)
--- NOTE | 2019-12-17 13:16 | XRAY Report ---
PROCEDURE: Abdomen 1 View X-Ray INDICATIONS: Persistent LLQ and RLQ pain, had bx w/ colonoscopy TECHNIQUE: 1 view of the abdomen were acquired. COMPARISON: CT of abdomen and pelvis dated 12/12/2019 FINDINGS: Surgical changes and devices: Surgical clips are seen in gallbladder fossa and lower abdomen and pelv is.. Bowel: No pneumoperitoneum. The bowel gas pattern is normal. Soft tissues: No masses; visualized solid organ contours appear normal in size. No suspicious abdom inal calcifications. Bones: No suspicious bony abnormalities. IMPRESSION: No pneumoperitoneum. No evidence of bowel obstruction. Reviewed by: Jim Michel MD on 12/17/2019 1:14 PM PDT Approved by: Jim Michel MD on 12/17/2019 1:14 PM PDT Station ID: [id number]
[2019-12-17] MEDS: HYDROmorphone 1 MG/ML CARPUJECT IVP PRN ×2 (15:40→20:47)
[2019-12-17] MEDS: lisinopriL 5 MG TABLET PO SCH (20:47)
[2019-12-17] MEDS: lamoTRIgine 100 MG TABLET PO SCH (20:47)
[2019-12-18] MEDS: BUTALB/ACETAM/CAFF 50/325/40MG TABLET PO PRN (00:11)
[2019-12-18] MEDS: SODIUM CHLORIDE FLUSH 0.9% 10 ML SYRINGE IVP SCH ×3 (00:13→17:03)
[2019-12-18] MEDS: metroNIDAZOLE 500 MG/100 ML 500 MG/100 ML BAG IV SCH ×2 (04:06→18:36)
[2019-12-18] MEDS: HYDROmorphone 1 MG/ML CARPUJECT IVP PRN (05:46)
[2019-12-18] MEDS: LEVOTHYROXINE 100 MCG TABLET PO SCH (05:48)
[2019-12-18] MEDS ORDERED: POTASSIUM CHLORIDE 20 MEQ TABLET PO ONE (07:33)
[2019-12-18 07:58] LABS: BASOPHILS % (AUTO) 0.2 %; HGB - HEMOGLOBIN 11.3 g/dL (12.0-16.0); LYMPHOCYTES # (AUTO) 2.9 10^3/uL (1.5-3.5); LYMPHOCYTES % (AUTO) 32.3 %; MEAN CORPUSCULAR HEMOGLOBIN 30.3 pg (27.0-31.0); MEAN CORPUSCULAR HGB CONC 32.6 g/dL (32.0-36.0); MEAN PLATELET VOLUME 9.4 fL (7.9-10.8); MONOCYTES # (AUTO) 0.5 10^3/uL (0.0-1.0); MONOCYTES % (AUTO) 5.6 %; NEUTROPHILS # (AUTO) 5.6 10^3/uL (1.5-6.6); NEUTROPHILS % (AUTO) 61.6 %; PLT - PLATELET COUNT 340 10^3/uL (130-450); RED BLOOD COUNT 3.73 10^6/uL (4.20-5.40); RED CELL DISTRIBUTION WIDTH 13.4 % (12.0-15.0)
[2019-12-18 08:10] LABS: CALCIUM 9.1 mg/dL (8.5-10.3); CREATININE 0.7 mg/dL (0.4-1.0)
[2019-12-18] MEDS: SPIRONOLACTONE 25 MG TABLET PO SCH (08:51)
[2019-12-18] MEDS: predniSONE 20 MG TABLET PO SCH (08:51)
[2019-12-18] MEDS: VENLAFAXINE ER 75 MG CAPSULE PO SCH (08:51)
[2019-12-18] MEDS: FLUTICASONE NASAL SPRAY NAS SCH ×2 (08:52→20:39)
[2019-12-18] MEDS: NICOTINE 7 MG PATCH TOP SCH (08:52)
[2019-12-18] MEDS: OXYBUTYNIN 5MG TABLET PO SCH ×2 (08:52→20:39)
[2019-12-18] MEDS: GABAPENTIN 300 MG CAPSULE PO SCH ×2 (08:52→20:39)
[2019-12-18] MEDS: AMPHETAMINE PO SCH (08:53)
[2019-12-18] MEDS: DEXTROAMPHETAMINE PO SCH (08:53)
[2019-12-18] MEDS: DOCUSATE SODIUM 250 MG CAPSULE PO SCH (10:22)
[2019-12-18] MEDS: polyethylene glycoL 3350 17 GM PACKET PO SCH (10:22)
[2019-12-18] MEDS ORDERED: metroNIDAZOLE 250 MG TABLET PO SCH (11:00)
[2019-12-18] MEDS ORDERED: CIPROFLOXACIN 250 MG TABLET PO SCH (11:30)
[2019-12-18] MEDS: LORazepam 0.5 MG TABLET PO PRN (11:42)
[2019-12-18] MEDS: HYDROcod/ACETAM 10 MG/325 MG TABLET PO PRN (12:15)
--- NOTE | 2019-12-18 12:32 | XRAY Report ---
PROCEDURE: Abdomen 2 View X-Ray INDICATIONS: Abdominal pain TECHNIQUE: 2 views of the abdomen were acquired. COMPARISON: 12/17/2019 FINDINGS: Surgical changes and devices: Multiple surgical clips are present in the abdomen and pelvis Bowel: Dilated loops of small bowel measuring up to 6.8 cm. A few air-fluid levels are present on the upright exam. Relative paucity of bowel gas in the distal small bowel and colon. No evidence of pneu moperitoneum Soft tissues: No masses; visualized solid organ contours appear normal in size. No suspicious abdom inal calcifications. Bones: No suspicious bony abnormalities. IMPRESSION: Findings which raise concern for at least a partial small bowel obstruction. CT of the a bdomen and pelvis with IV and oral contrast could be considered in the appropriate clinical setting f or further evaluation. Reviewed by: Gurpreet Nation MD on 12/18/2019 12:30 PM PDT Approved by: Gurpreet Nation MD on 12/18/2019 12:30 PM PDT Station ID: [id number]
--- NOTE | 2019-12-18 14:10 | PROVIDER PROGRESS NOTE ---
Subjective - Prog Note Date Prog Note Date: 12/18/19 - Subjective Pt reports feeling: Improved Subjective: Patient reported She still has some abdominal pain special when she has emotional distress. Patient was happy when I discussed with her about the care plan and possible discharge planning in this afternoon but it dependent on her progress, if she has bowel movement on today and abdominal pain was total controlled. Then she become cry and request change to another provider but we do not know the reason why she want to change another provider. When another provider discussed with her about the care plan then she become very upset, she cry again. she signed AMA, and try to leave the hospital. Then she changed her mind and agreed to stay at hospital, and she agreed to have KUB of abdomen to check the reason why she still have abdominal pain. Patient had colonoscopy 3 days ago. Current Medications - Current Medications Current Medications: Active Medications Acetaminophen (Tylenol) 650 mg PO Q4HR PRN PRN Reason: Pain 1 to 4 Last Admin: 12/17/19 10:20 Dose: 650 mg Documented by: Acetaminophen/Butalbital/Caffeine (Fioricet) 1 tab PO Q4HR PRN PRN Reason: HEADACHE Last Admin: 12/18/19 00:11 Dose: 1 tab Documented by: Hydrocodone Bitart/Acetaminophen (Cecil 10 Mg/325 Mg) 1 tab PO Q6HR PRN PRN Reason: PAIN Last Admin: 12/18/19 12:15 Dose: 1 tab Documented by: Albuterol () 2.5 mg INH RTQ4H PRN PRN Reason: Wheezing Docusate Sodium (Colace 250mg Capsule) 250 - 500 mg PO DAILY [facility] Last Admin: 12/18/19 10:22 Dose: Not Given Documented by: Fluticasone Propionate (Flonase) 1 sprays RAUL BID ELIEL Last Admin: 12/18/19 08:52 Dose: 1 spr Documented by: Gabapentin (Neurontin) 900 mg PO BID [facility] Last Admin: 12/18/19 08:52 Dose: 900 mg Documented by: Hydromorphone HCl (Dilaudid Inj Carp) 1 mg IVP Q4HR PRN PRN Reason: Severe Pain Last Admin: 12/18/19 05:46 Dose: 1 mg Documented by: Potassium Chloride/Dextrose/Sod Cl (D5.45ns W/20 Meq Kcl) 1,000 mls @ 100 mls/hr IV .Q10H ELIEL Ciprofloxacin (Cipro 400 Mg/200 Ml) 400 mg in 200 mls @ 200 mls/hr IV Q12H [facility] Metronidazole (Flagyl 500 Mg/100 Ml) 500 mg in 100 mls @ 100 mls/hr IV Q8H [facility] Lamotrigine (Lamictal) 200 mg PO QPM [facility] Last Admin: 12/17/19 20:47 Dose: 200 mg Documented by: Levothyroxine Sodium (Synthroid) 100 mcg PO QDAC [facility] Last Admin: 12/18/19 05:48 Dose: 100 mcg Documented by: Lisinopril (Zestril) 10 mg PO QPM [facility] Last Admin: 12/17/19 20:47 Dose: 10 mg Documented by: Lorazepam (Ativan) 0.5 mg PO Q8H PRN PRN Reason: Anxiety Last Admin: 12/18/19 11:42 Dose: 0.5 mg Documented by: Lorazepam (Ativan Inj (Vial)) 0.5 mg IVP Q6H PRN PRN Reason: Anxiety Nicotine (Nicoderm) 1 patch TOP DAILY [facility] Last Admin: 12/18/19 08:52 Dose: 1 patch Documented by: *Patient's Own( Dextroamphetamine/Amphetamine [ Adderall Xr 30 Mg Capsul 30 mg PO DAILY [facility] Last Admin: 12/18/19 08:53 Dose: Not Given Documented by: Ondansetron HCl (Zofran Inj) 4 mg IVP Q6HR PRN PRN Reason: Nausea / Vomiting Last Admin: 12/14/19 09:14 Dose: 4 mg Documented by: Oxybutynin Chloride (Ditropan) 5 mg PO BID [facility] Last Admin: 12/18/19 08:52 Dose: 5 mg Documented by: Polyethylene Glycol (Miralax) 17 gm PO DAILY [facility] Last Admin: 12/18/19 10:22 Dose: Not Given Documented by: Prazosin HCl (Minipress) 2 mg PO QPM PRN PRN Reason: Sleep Disruption/PTSD Prednisone (Deltasone) 40 mg PO DAILYWM [facility] Last Admin: 12/18/19 08:51 Dose: 40 mg Documented by: Sodium Chloride (Normal Saline Flush 0.9%) 10 ml IVP PRN PRN PRN Reason: NEEDED PER PROVIDER ORDERS Last Admin: 12/17/19 04:37 Dose: 10 ml Documented by: Sodium Chloride (Normal Saline Flush 0.9%) 10 ml IVP 0100,0900,1700 [facility] Last Admin: 12/18/19 05:46 Dose: 10 ml Documented by: Spironolactone (Aldactone) 75 mg PO DAILY [facility] Last Admin: 12/18/19 08:51 Dose: 75 mg Documented by: Venlafaxine HCl (Effexor Er) 150 mg PO DAILY [facility] Last Admin: 12/18/19 08:51 Dose: 150 mg Documented by: Albuterol Sulfate [Proair Hfa Inhaler] 2 puffs INH Q4H PRN 07/14/15 EPINEPHrine [Epinephrine] 0.3 mg IM ONCE PRN 07/14/15 Gabapentin 900 mg PO BID 07/14/15 Metoprolol Tartrate 50 mg PO DAILY 07/14/15 Oxybutynin [Ditropan] 5 mg PO BID 07/14/15 Venlafaxine HCl [Effexor Xr] 150 mg PO DAILY 07/14/15 Ondansetron HCl 4 mg PO QPM PRN 04/30/16 Denosumab [Prolia] 60 mg INJ [id number] 05/16/17 Butalb/Acetaminophen/Caffeine [Fioricet 50-300-40 mg Capsule] 1 - 2 cap PO Q4H PRN MDD 6 caps 01/23/19 Calcium Carbonate/Vitamin D3 [Calcium 500-Vit D3 200 Tablet] 2 tab PO DAILY 01/23/19 Lansoprazole 15 mg PO DAILY 01/23/19 Levothyroxine [Synthroid] 125 mcg PO QPM 01/23/19 Metoprolol Tartrate 75 mg PO QPM 01/23/19 Potassium Chloride 20 meq PO DAILY 01/23/19 Spironolactone 75 mg PO DAILY 01/23/19 lamoTRIgine [Lamictal] 200 mg PO QPM 01/23/19 lisinopriL [Lisinopril] 10 mg PO QPM 01/23/19 Dextroamphetamine/Amphetamine [Adderall Xr 30 mg Capsule] 30 mg PO DAILY 0 12/13/19 Fluticasone [Flonase] 1 sprays RAUL BID 12/13/19 Prazosin HCl 2 mg PO QPM PRN 12/13/19 Objective - Vital Signs/Intake & Output Vital Signs: Vital Signs x48h Temp Pulse Resp BP Pulse Ox 12/18/19 08:39 36.6 C 69 22 138/81 H 100 Intake & Output: Intake & Output 12/15/19 12/16/19 12/17/19 12/18/19 23:59 23:59 23:59 23:59 Intake Total 2228.878 2854.989 3725.000 1173.584 Output Total 3625 3450 3200 1800 Balance -1396.122 -595.011 525.000 -626.416 - Objective General Appearance: positive: No acute distress, Alert. negative: Lethargic Eyes Bilateral: positive: Normal inspection, PERRL, No lid inflammation ENT: positive: ENT inspection nml, Pharynx nml, No signs of dehydration. negative: Purulent nasal drainage Neck: positive: Nml inspection, Thyroid nml, Trachea midline. negative: Thyromegaly, Stiff neck, Tracheal deviation Respiratory: positive: Chest non-tender, No respiratory distress, Breath sounds nml. negative: Wheezes, Rales, Rhonchi Cardiovascular: positive: Regular rate & rhythm, No murmur, No gallop. negative: Tachycardia, Bradycardia, Systolic murmur, Diastolic murmur Peripheral Pulses: 2+ Radial (R), 2+ Radial (L), 2+ Dorsalis pedis (R), 2+ Dorsa lis pedis (L) Abdomen: positive: Non-tender, No organomegaly, Nml bowel sounds, No distention. negative: Tenderness, Guarding, Rebound Back: positive: Nml inspection. negative: CVA tenderness (R), CVA tenderness (L) Skin: positive: Color nml, No rash, Warm, Dry. negative: Cyanosis, Diaphoresis, Pallor Extremities: positive: Non-tender, Full ROM, Nml appearance. negative: Pedal edema, Calf tenderness, Rodrigo's sign/cords Neurologic/Psychiatric: positive: Oriented x3, Motor nml, Sensation nml. negative: Weakness, Sensory loss, Facial droop, Slurred/abnml speech - Lab Results Fish Bones: 12/18/19 07:48 12/18/19 07:48 Other Labs: Lab Results x24hrs 06/30/20 06/30/20 06/26/20 Range/Units 07:48 07:48 04:35 WBC 9.0 (4.8-10.8) x10^3/uL RBC 3.73 L (4.20-5.40) 10^6/uL Hgb 11.3 L (12.0-16.0) g/dL Hct 34.7 L (37.0-47.0) % MCV 93.0 (81.0-99.0) fL MCH 30.3 (27.0-31.0) pg MCHC 32.6 (32.0-36.0) g/dL RDW 13.4 (12.0-15.0) % Plt Count 340 (130-450) 10^3/uL MPV 9.4 (7.9-10.8) fL Neut # (Auto) 5.6 (1.5-6.6) 10^3/uL Lymph # (Auto) 2.9 (1.5-3.5) 10^3/uL Duval # (Auto) 0.5 (0.0-1.0) 10^3/uL Eos # (Auto) 0.0 (0.0-0.7) 10^3/uL Baso # (Auto) 0.0 (0.0-0.1) 10^3/uL Absolute Nucleated RBC 0.00 x10^3/uL Nucleated RBC % 0.0 /100WBC Sodium 137 (135-145) mmol/L Potassium 3.9 (3.5-5.0) mmol/L Chloride 101 (101-111) mmol/L Carbon Dioxide 27 (21-32) mmol/L Anion Gap 9.0 (6-13) BUN 7 (6-20) mg/dL Creatinine 0.7 (0.4-1.0) mg/dL Estimated GFR (MDRD) 87 L (>89) Glucose 108 H (70-100) mg/dL Calcium 9.1 (8.5-10.3) mg/dL Lamotrigine 1.5 L (4.0-18.0) mcg/mL ABX Reporting Has patient been on IV antibiotics over the past 48 hours?: Yes Sepsis Event Note (H) - Evaluation Current Stage of Sepsis: Ruled out Assessment/Plan - Problem List (1) Partial small bowel obstruction Impression: Patient still report abdominal pain, patient reports she had a 4 days no bowel movement,But the patient denies nausea or vomiting,X-ray of abdomen show patient has at least partial small bowel obstruction. I called surgeon Dr. Mishra and report this condition to him. Change patient to the NPO, Intravenous IV fluids, encourage patient walk safely with nurse. Discussed with the patient, try to reduce opiates use for patient, Called and counseled with Dr. Mishra. Patient has no nausea or vomiting so patient no NG tube (2) Acute colitis Assessment/Plan: Continue intravenous antibiotics Flagyl and Cipro for colitis. Patient still complaining some abdominal pain, but better than before, patient had x-ray of abdomen show partially small bowel obstruction. (3) Acute Crohn's disease with rectal bleeding Assessment/Plan: Patient had colonoscopy done 3 days ago which found patient had a deep ulcer in transverse colon in which surgeon suggest Crohn's. Patient had biopsy, it is pending. Patient had a strong family IBS disease, patient have son he had Crohn 's disease for 27 years. Patient's father had FAP disease. Patient started with steroid already. No more rectal bleeding since she was admitted. pt has No BMs for four days and her bowel sounds are still diminished. but pt has no more rectal bleeding and HGB is stable. We will continue use prednisone, continue laboratory monitoring.Advised the patient follow-up with trauma director as soon as possible after discharge, patient stated she will go with her son's GI physician after discharge from the hospital (4) Lower GI bleed Assessment/Plan: stable, The hemoglobin dropped from 13 to 11 and then plateaued.Patient reported she has been no more GI bleeding since she had colonoscopy. (5) Bipolar 1 disorder Assessment/Plan: Patient motion is not stable on today morning but this afternoon she is better and controlled. Continue Her home meds continue for anxiety and depression while here. (6) Hypokalemia Assessment/Plan: resolved (7) Hypothyroidism Assessment/Plan: Her TSH is low, patient's Synthroid dosage reduced to 100 mcg daily from 112 mcg daily (8) HTN (hypertension) Assessment/Plan: Blood pressure is controlled, she continues on her home meds for this (9) Fibromyalgia Assessment/Plan: She is getting morphine, will be changed to Dilaudid which is treating all her pain complaints. (10) Tobacco use Assessment/Plan: She is getting a nicotine patch while here.
[2019-12-18] MEDS ORDERED: LORazepam 2 MG/ML VIAL IVP PRN (15:07)
[2019-12-18] MEDS: D5.45NS W/20 MEQ KCL 1,000 ML IV SCH (17:02)
[2019-12-18] MEDS: CIPROFLOXACIN 400 MG/200 ML 400 MG/200 ML BAG IV SCH (17:03)
--- NOTE | 2019-12-18 17:20 | PROVIDER PROGRESS NOTE ---
Subjective - Prog Note Date Prog Note Date: 12/18/19 - Subjective Pt reports feeling: Improved (she feels mildly distended but improved. She denies nausea and significant abdominal discomfort) Objective - Vital Signs/Intake & Output Vital Signs: Vital Signs x48h Pulse Resp 12/18/19 15:45 82 16 Intake & Output: Intake & Output 12/15/19 12/16/19 12/17/19 12/18/19 23:59 23:59 23:59 23:59 Intake Total 2228.878 2854.989 3725.000 1175.251 Output Total 3625 3450 3200 1800 Balance -1396.122 -595.011 525.000 -624.749 - Objective General Appearance: positive: No acute distress, Alert Eyes Bilateral: positive: Normal inspection Neck: positive: No JVD Respiratory: positive: No respiratory distress Abdomen: positive: Other (soft, minimal distension and minimal) - Lab Results Fish Bones: 12/18/19 07:48 12/18/19 07:48 Other Labs: Lab Results x24hrs 12/18/19 12/18/19 12/14/19 Range/Units 07:48 07:48 04:35 WBC 9.0 (4.8-10.8) x10^3/uL RBC 3.73 L (4.20-5.40) 10^6/uL Hgb 11.3 L (12.0-16.0) g/dL Hct 34.7 L (37.0-47.0) % MCV 93.0 (81.0-99.0) fL MCH 30.3 (27.0-31.0) pg MCHC 32.6 (32.0-36.0) g/dL RDW 13.4 (12.0-15.0) % Plt Count 340 (130-450) 10^3/uL MPV 9.4 (7.9-10.8) fL Neut # (Auto) 5.6 (1.5-6.6) 10^3/uL Lymph # (Auto) 2.9 (1.5-3.5) 10^3/uL Cannon # (Auto) 0.5 (0.0-1.0) 10^3/uL Eos # (Auto) 0.0 (0.0-0.7) 10^3/uL Baso # (Auto) 0.0 (0.0-0.1) 10^3/uL Absolute Nucleated RBC 0.00 x10^3/uL Nucleated RBC % 0.0 /100WBC Sodium 137 (135-145) mmol/L Potassium 3.9 (3.5-5.0) mmol/L Chloride 101 (101-111) mmol/L Carbon Dioxide 27 (21-32) mmol/L Anion Gap 9.0 (6-13) BUN 7 (6-20) mg/dL Creatinine 0.7 (0.4-1.0) mg/dL Estimated GFR (MDRD) 87 L (>89) Glucose 108 H (70-100) mg/dL Calcium 9.1 (8.5-10.3) mg/dL Lamotrigine 1.5 L (4.0-18.0) mcg/mL - Diagnostic Imaging Diagnostic Imaging Results: positive: Final report reviewed, Read independently Sepsis Event Note (H) - Evaluation Current Stage of Sepsis: Ruled out Assessment/Plan - Problem List (1) Acute colitis Impression: clinically she is doing ok and does not have a bowel obstruction. I believe a full liquid , soft/ low fiber diet is fine. If she is not improving consider transfer to hospital with dedicated gi service. If tolerating a soft diet well she may be discharged and follow up with scarf and anneal operator as an out patient
[2019-12-18] MEDS: lamoTRIgine 100 MG TABLET PO SCH (20:39)
[2019-12-18] MEDS: lisinopriL 5 MG TABLET PO SCH (20:39)
[2019-12-19] MEDS: metroNIDAZOLE 500 MG/100 ML 500 MG/100 ML BAG IV SCH ×3 (00:47→16:22)
[2019-12-19] MEDS: HYDROcod/ACETAM 10 MG/325 MG TABLET PO PRN (00:59)
[2019-12-19] MEDS: SODIUM CHLORIDE FLUSH 0.9% 10 ML SYRINGE IVP SCH ×3 (01:08→15:49)
[2019-12-19] MEDS: CIPROFLOXACIN 400 MG/200 ML 400 MG/200 ML BAG IV SCH ×2 (05:02→15:46)
[2019-12-19] MEDS: LORazepam 0.5 MG TABLET PO PRN ×2 (05:11→19:25)
[2019-12-19] MEDS: D5.45NS W/20 MEQ KCL 1,000 ML IV SCH (05:12)
[2019-12-19] MEDS: LEVOTHYROXINE 100 MCG TABLET PO SCH (05:17)
[2019-12-19 05:46] LABS: BASOPHILS % (AUTO) 0.2 %; EOSINOPHILS % (AUTO) 1.1 %; HGB - HEMOGLOBIN 10.1 g/dL (12.0-16.0); LYMPHOCYTES % (AUTO) 41.7 %; MEAN CORPUSCULAR HGB CONC 32.9 g/dL (32.0-36.0); MEAN CORPUSCULAR VOLUME 91.1 fL (81.0-99.0); MEAN PLATELET VOLUME 9.2 fL (7.9-10.8); MONOCYTES % (AUTO) 8.5 %; NEUTROPHILS % (AUTO) 48.1 %; PLT - PLATELET COUNT 336 10^3/uL (130-450); RED BLOOD COUNT 3.37 10^6/uL (4.20-5.40); RED CELL DISTRIBUTION WIDTH 13.6 % (12.0-15.0); WHITE BLOOD COUNT 9.3 x10^3/uL (4.8-10.8)
[2019-12-19 05:51] LABS: ABNORMAL LYMPHS % (MANUAL) 0 %
[2019-12-19 05:52] LABS: CALCIUM 8.1 mg/dL (8.5-10.3); CREATININE 0.7 mg/dL (0.4-1.0)
[2019-12-19 06:20] LABS: BAND NEUTROPHILS % (MANUAL) 3 %; DIFFERENTIAL COMMENT MANUAL DIFFERENTIAL; LYMPHOCYTES # (MANUAL) 4.7 10^3/uL (1.5-3.5); LYMPHOCYTES % (MANUAL) 51 %; MONOCYTES # (MANUAL) 0.3 10^3/uL (0.0-1.0); PLATELET ESTIMATE, MANUAL NORMAL (130-450,000) (NORMAL); RBC MORPHOLOGY (MULTIPLE) NORMAL APPEARANCE (NORMAL)
[2019-12-19] MEDS: SPIRONOLACTONE 25 MG TABLET PO SCH (08:26)
[2019-12-19] MEDS: VENLAFAXINE ER 75 MG CAPSULE PO SCH (08:27)
[2019-12-19] MEDS: CHOLECALCIFEROL 400 UNIT TABLET PO SCH (08:27)
[2019-12-19] MEDS: GABAPENTIN 300 MG CAPSULE PO SCH ×2 (08:27→21:51)
[2019-12-19] MEDS: predniSONE 20 MG TABLET PO SCH (08:27)
[2019-12-19] MEDS: CALCIUM CARBONATE CHEW 500 MG TABLET PO SCH (08:27)
[2019-12-19] MEDS: OXYBUTYNIN 5MG TABLET PO SCH ×2 (08:27→21:51)
[2019-12-19] MEDS: NICOTINE 7 MG PATCH TOP SCH (08:28)
[2019-12-19] MEDS: polyethylene glycoL 3350 17 GM PACKET PO SCH (08:28)
[2019-12-19] MEDS: DEXTROAMPHETAMINE PO SCH (08:28)
[2019-12-19] MEDS: AMPHETAMINE PO SCH (08:28)
[2019-12-19] MEDS: FLUTICASONE NASAL SPRAY NAS SCH ×2 (08:30→21:52)
[2019-12-19] MEDS: DOCUSATE SODIUM 250 MG CAPSULE PO SCH (08:30)
[2019-12-19] MEDS: BUTALB/ACETAM/CAFF 50/325/40MG TABLET PO PRN (08:34)
[2019-12-19] MEDS: SODIUM CHLORIDE 0.9% 1,000 ML IV SCH ×2 (08:39→23:43)
[2019-12-19] MEDS: SENNA 8.6 MG TABLET PO SCH (10:37)
[2019-12-19] MEDS ORDERED: MAGNESIUM HYDROXIDE 2,400 MG/30 ML UDC PO PRN (12:17)
[2019-12-19] MEDS ORDERED: IOVERSOL 320 100 ML VIAL IVP ONE ×2 (12:32→14:41)
--- NOTE | 2019-12-19 14:55 | CT Report ---
PROCEDURE: Abdomen/Pelvis W INDICATIONS: SBO CONTRAST: Isovue 320 IV contrast was administered TECHNIQUE: After the administration of oral and intravenous contrast, 5 mm thick sections acquired from the diap hragms to the symphysis. 5 mm thick coronal and sagittal reformats were acquired. For radiation dos e reduction, the following was used: automated exposure control, adjustment of mA and/or kV accordin g to patient size. COMPARISON: CT abdomen and pelvis 12/12/2019 FINDINGS: Image quality: Excellent. ABDOMEN: Lung bases: Lung bases are clear. Heart size is normal. Solid organs: Liver and spleen are normal in size. Question of hepatic steatosis. Focal fatty infilt ration at the falciform ligament. Gallbladder is surgically absent. Biliary system is non dilated. Pancreas enhances normally. No adrenal nodules. Kidneys demonstrate normal size and enhancement, w ithout hydronephrosis. Peritoneum and bowel: There is a large volume of stool in the right and transverse colon. The abnorma l thickening at and pericolonic stranding surrounding the splenic flexure and descending colon is dec reased. Minimal residual thickening appreciated at the splenic flexure, (3/30). Distal colon is decom pressed. Normal appendix. No small bowel obstruction. No pneumatosis intestinalis or pneumoperitoneum . No free fluid. Nodes and vessels: No retroperitoneal or mesenteric adenopathy by size criteria. Aorta and inferior vena cava are normal in size. Miscellaneous: No ventral hernias. Ventral abdominal wall clips or mesh. PELVIS: Genitourinary: Bladder wall thickness is normal. Uterus is absent. Miscellaneous: No inguinal hernias or adenopathy. Bones: No suspicious bony lesions. No vertebral body compression fractures. IMPRESSION: 1. Large volume of stool in the right and transverse colon. Distal colon is decompressed. 2. Mild residual thickening of the splenic flexure colon. Majority of the thickening and pericolonic stranding is resolved. 3. No small bowel obstruction. No pneumoperitoneum. No ascites. Reviewed by: Donnell Meraz MD on 12/19/2019 2:53 PM PDT Approved by: Donnell Meraz MD on 12/19/2019 2:53 PM PDT Station ID: [id number]
[2019-12-19] MEDS ORDERED: MINERAL OIL ENEMA 133 ML BOTTLE RC SCH (16:00)
--- NOTE | 2019-12-19 17:17 | Discharge Plan ---
Discharge Plan Problem Reviewed?: Yes Disposition: Home, Self Care Condition: Stable No Smoking: If you smoke, Please STOP! Call for help. Follow-up with: Andreina Martinez ARNP, MEDICAL COLLECTIONS REPRESENTATIVE-C [Primary Care Provider] -
[2019-12-19] MEDS ORDERED: DIATR MEGLU/DIATRIZOATE SODIUM 120 ML BOTTLE PO ONE (17:35)
--- NOTE | 2019-12-19 18:38 | PROVIDER PROGRESS NOTE ---
Subjective - Prog Note Date Prog Note Date: 12/19/19 - Subjective Pt reports feeling: Improved Subjective: pt report she never had so long constipation in her life. Patient reported she passed gas but feels abdominal full and no bowel movement. she feel her stomach is full an distended, and discomfort. she had CT of abdomen Which show she had a large volume of stool in the right and the transverse colon, Distal colon is decompressed, Majority of the thickening and percolonic stranding is resolved,No small bowel obstruction, no ascites, no penumoperitoneum. Patient was initiated bowel protocol by the nurse, patient was given milk magnesium, enema, G astrografin challenge but But the patient still no bowel movement yet, GI surgeon was called and he will see the patient. Current Medications - Current Medications Current Medications: Active Medications Acetaminophen (Tylenol) 650 mg PO Q4HR PRN PRN Reason: Pain 1 to 4 Last Admin: 12/17/19 10:20 Dose: 650 mg Documented by: Acetaminophen/Butalbital/Caffeine (Fioricet) 1 tab PO Q4HR PRN PRN Reason: HEADACHE Last Admin: 12/19/19 08:34 Dose: 1 tab Documented by: Albuterol () 2.5 mg INH RTQ4H PRN PRN Reason: Wheezing Calcium Carbonate/Glycine (Tums) 1,000 mg PO DAILY [facility] Last Admin: 12/19/19 08:27 Dose: 1,000 mg Documented by: Cholecalciferol (Vitamin D3) 400 unit PO DAILY [facility] Last Admin: 12/19/19 08:27 Dose: 400 unit Documented by: Ciprofloxacin (Cipro) 250 mg PO BID [facility] Docusate Sodium (Colace 250mg Capsule) 250 - 500 mg PO DAILY [facility] Last Admin: 12/19/19 08:30 Dose: Not Given Documented by: Fluticasone Propionate (Flonase) 1 sprays RAUL BID [facility] Last Admin: 12/19/19 08:30 Dose: 1 spr Documented by: Gabapentin (Neurontin) 900 mg PO BID [facility] Last Admin: 12/19/19 08:27 Dose: 900 mg Documented by: Sodium Chloride (Normal Saline 0.9%) 1,000 mls @ 83.333 mls/hr IV .Q12H [facility] Last Infusion: 12/19/19 17:49 Dose: 83.33 mls/hr Documented by: Lamotrigine (Lamictal) 200 mg PO QPM [facility] Last Admin: 12/18/19 20:39 Dose: 200 mg Documented by: Levothyroxine Sodium (Synthroid) 100 mcg PO QDAC [facility] Last Admin: 12/19/19 05:17 Dose: 100 mcg Documented by: Lisinopril (Zestril) 10 mg PO QPM [facility] Last Admin: 12/18/19 20:39 Dose: 10 mg Documented by: Lorazepam (Ativan) 0.5 mg PO Q8H PRN PRN Reason: Anxiety Last Admin: 12/19/19 05:11 Dose: 0.5 mg Documented by: Lorazepam (Ativan Inj (Vial)) 0.5 mg IVP Q6H PRN PRN Reason: Anxiety Metoclopramide HCl (Reglan) 10 mg PO ACHS [facility] Metronidazole (Flagyl) 250 mg PO Q8H [facility] Nicotine (Nicoderm) 1 patch TOP DAILY [facility] Last Admin: 12/19/19 08:28 Dose: 1 patch Documented by: *Patient's Own( Dextroamphetamine/Amphetamine [ Adderall Xr 30 Mg Capsul 30 mg PO DAILY [facility] Last Admin: 12/19/19 08:28 Dose: Not Given Documented by: Ondansetron HCl (Zofran Inj) 4 mg IVP Q6HR PRN PRN Reason: Nausea / Vomiting Last Admin: 12/14/19 09:14 Dose: 4 mg Documented by: Oxybutynin Chloride (Ditropan) 5 mg PO BID [facility] Last Admin: 12/19/19 08:27 Dose: 5 mg Documented by: Polyethylene Glycol (Miralax) 17 gm PO DAILY [facility] Last Admin: 12/19/19 08:28 Dose: 17 gm Documented by: Prazosin HCl (Minipress) 2 mg PO QPM PRN PRN Reason: Sleep Disruption/PTSD Prednisone (Deltasone) 40 mg PO DAILYWM [facility] Last Admin: 12/19/19 08:27 Dose: 40 mg Documented by: Palmira (Senokot) 8.6 - 17.2 mg PO DAILY [facility] Last Admin: 12/19/19 10:37 Dose: 8.6 mg Documented by: Sodium Chloride (Normal Saline Flush 0.9%) 10 ml IVP PRN PRN PRN Reason: NEEDED PER PROVIDER ORDERS Last Admin: 12/17/19 04:37 Dose: 10 ml Documented by: Sodium Chloride (Normal Saline Flush 0.9%) 10 ml IVP 0100,0900,1700 [facility] Last Admin: 12/19/19 15:49 Dose: Not Given Documented by: Spironolactone (Aldactone) 75 mg PO DAILY [facility] Last Admin: 12/19/19 08:26 Dose: 75 mg Documented by: Venlafaxine HCl (Effexor Er) 150 mg PO DAILY [facility] Last Admin: 12/19/19 08:27 Dose: 150 mg Documented by: Albuterol Sulfate [Proair Hfa Inhaler] 2 puffs INH Q4H PRN 07/14/15 EPINEPHrine [Epinephrine] 0.3 mg IM ONCE PRN 07/14/15 Gabapentin 900 mg PO BID 07/14/15 Metoprolol Tartrate 50 mg PO DAILY 07/14/15 Oxybutynin [Ditropan] 5 mg PO BID 07/14/15 Venlafaxine HCl [Effexor Xr] 150 mg PO DAILY 07/14/15 Ondansetron HCl 4 mg PO QPM PRN 04/30/16 Denosumab [Prolia] 60 mg INJ [id number] 05/16/17 Butalb/Acetaminophen/Caffeine [Fioricet 50-300-40 mg Capsule] 1 - 2 cap PO Q4H PRN MDD 6 caps 01/23/19 Calcium Carbonate/Vitamin D3 [Calcium 500-Vit D3 200 Tablet] 2 tab PO DAILY 01/23/19 Lansoprazole 15 mg PO DAILY 01/23/19 Levothyroxine [Synthroid] 125 mcg PO QPM 01/23/19 Metoprolol Tartrate 75 mg PO QPM 01/23/19 Potassium Chloride 20 meq PO DAILY 01/23/19 Spironolactone 75 mg PO DAILY 01/23/19 lamoTRIgine [Lamictal] 200 mg PO QPM 01/23/19 lisinopriL [Lisinopril] 10 mg PO QPM 01/23/19 Dextroamphetamine/Amphetamine [Adderall Xr 30 mg Capsule] 30 mg PO DAILY 12/13/19 Fluticasone [Flonase] 1 sprays RAUL BID 12/13/19 Prazosin HCl 2 mg PO QPM PRN 12/13/19 Objective - Vital Signs/Intake & Output Reviewed Vital Signs: Yes Vital Signs: Vital Signs x48h Temp Pulse Resp BP Pulse Ox 12/19/19 15:33 37.1 C 60 16 126/74 96 Intake & Output: Intake & Output 12/16/19 12/17/19 12/18/19 12/19/19 23:59 23:59 23:59 23:59 Intake Total 2854.989 3725.000 2201.918 4910.825 Output Total 3450 3200 1800 Balance -595.011 525.000 276.100 6421.825 - Objective General Appearance: positive: No acute distress, Alert. negative: Lethargic Eyes Bilateral: positive: Normal inspection, PERRL, No lid inflammation ENT: positive: ENT inspection nml, Pharynx nml, No signs of dehydration. negative: Purulent nasal drainage Neck: positive: Nml inspection, Thyroid nml, No JVD, Trachea midline. negative: Thyromegaly, Stiff neck, Tracheal deviation Respiratory: positive: Chest non-tender, No respiratory distress, Breath sounds nml. negative: Wheezes, Rales, Rhonchi Cardiovascular: positive: Regular rate & rhythm, No murmur, No gallop. negative: Tachycardia, Bradycardia, Systolic murmur, Diastolic murmur Peripheral Pulses: 2+ Radial (R), 2+ Radial (L), 2+ Dorsalis pedis (R), 2+ D orsalis pedis (L) Abdomen: positive: Non-tender, No organomegaly, Nml bowel sounds. negative: Tenderness, Guarding, Rebound Back: positive: Nml inspection. negative: CVA tenderness (R), CVA tenderness (L) Skin: positive: Color nml, No rash, Warm, Dry. negative: Cyanosis, Diaphoresis, Pallor Extremities: positive: Non-tender, Full ROM, Nml appearance. negative: Calf tenderness, Rodrigo's sign/cords Neurologic/Psychiatric: positive: Oriented x3, Motor nml, Sensation nml. negative: Weakness, Sensory loss, Facial droop, Slurred/abnml speech - Lab Results Fish Bones: 12/20/19 04:50 12/20/19 04:50 Other Labs: Lab Results x24hrs 12/19/19 12/19/19 12/19/19 Range/Units 16:48 11:59 08:24 WBC (4.8-10.8) x10^3/uL RBC (4.20-5.40) 10^6/uL Hgb (12.0-16.0) g/dL Hct (37.0-47.0) % MCV (81.0-99.0) fL MCH (27.0-31.0) pg MCHC (32.0-36.0) g/dL RDW (12.0-15.0) % Plt Count (130-450) 10^3/uL MPV (7.9-10.8) fL Neut # (Auto) Lymph # (Auto) Kern # (Auto) Eos # (Auto) Baso # (Auto) Absolute Nucleated RBC Total Counted Band Neuts % (Manual) (0 - 10) % Abnorm Lymph % (Manual) % Nucleated RBC % Neutrophils # (Manual) (1.5-6.6) 10^3/uL Lymphocytes # (Manual) (1.5-3.5) 10^3/uL Monocytes # (Manual) (0.0-1.0) 10^3/uL Eosinophils # (Manual) (0-0.7) 10^3/uL Basophils # (Manual) (0-0.1) 10^3/uL Differential Comment Platelet Estimate (NORMAL) RBC Morph Micro Appear (NORMAL) Sodium (135-145) mmol/L Potassium (3.5-5.0) mmol/L Chloride (101-111) mmol/L Carbon Dioxide (21-32) mmol/L Anion Gap (6-13) BUN (6-20) mg/dL Creatinine (0.4-1.0) mg/dL Estimated GFR (MDRD) (>89) Glucose (70-100) mg/dL POC Whole Bld Glucose 102 H 100 86 (70 - 100) mg/dL Calcium (8.5-10.3) mg/dL Stool Calprotectin mcg/g 12/19/19 12/19/19 12/13/19 Range/Units 05:25 05:25 11:30 WBC 9.3 (4.8-10.8) x10^3/uL RBC 3.37 L (4.20-5.40) 10^6/uL Hgb 10.1 L (12.0-16.0) g/dL Hct 30.7 L (37.0-47.0) % MCV 91.1 (81.0-99.0) fL MCH 30.0 (27.0-31.0) pg MCHC 32.9 (32.0-36.0) g/dL RDW 13.6 (12.0-15.0) % Plt Count 336 (130-450) 10^3/uL MPV 9.2 (7.9-10.8) fL Neut # (Auto) Not Reportable Lymph # (Auto) Not Reportable Kern # (Auto) Not Reportable Eos # (Auto) Not Reportable Baso # (Auto) Not Reportable Absolute Nucleated RBC Not Reportable Total Counted 100 Band Neuts % (Manual) 3 (0 - 10) % Abnorm Lymph % (Manual) 0 % Nucleated RBC % Not Reportable Neutrophils # (Manual) 4.3 (1.5-6.6) 10^3/uL Lymphocytes # (Manual) 4.7 H (1.5-3.5) 10^3/uL Monocytes # (Manual) 0.3 (0.0-1.0) 10^3/uL Eosinophils # (Manual) 0.0 (0-0.7) 10^3/uL Basophils # (Manual) 0.0 (0-0.1) 10^3/uL Differential Comment MANUAL DIFFERENTIAL Platelet Estimate NORMAL (130-450,000) (NORMAL) RBC Morph Micro Appear NORMAL APPEARANCE (NORMAL) Sodium 130 L (135-145) mmol/L Potassium 3.7 (3.5-5.0) mmol/L Chloride 95 L (101-111) mmol/L Carbon Dioxide 27 (21-32) mmol/L Anion Gap 8.0 (6-13) BUN 7 (6-20) mg/dL Creatinine 0.7 (0.4-1.0) mg/dL Estimated GFR (MDRD) 87 L (>89) Glucose 335 H (70-100) mg/dL POC Whole Bld Glucose (70 - 100) mg/dL Calcium 8.1 L (8.5-10.3) mg/dL Stool Calprotectin 2790 H mcg/g ABX Reporting Has patient been on IV antibiotics over the past 48 hours?: Yes Sepsis Event Note (H) - Evaluation Current Stage of Sepsis: Ruled out Assessment/Plan - Problem List (1) Acute constipation Impression: Patient Report she still has constipation, no bowel movement. pt has constipation for a few days, she feel her stomach is full an distended, and discomfort. she reported she never had constipation like this before. Patient was initiated bowel protocol by the nurse, patient was given milk magnesium, enema, Gastrografin challenge but But the patient still no bowel movement yet, GI surgeon was called and he will see the patient. CT of abdomen Which show she had a large volume of stool in the right and the transverse colon, Distal colon is decompressed, Majority of the thickening and percolonic stranding is resolved,No small bowel obstruction, no ascites, no penumoperitoneum. (2) Partial small bowel obstruction Impression: 12/18, Resolved Patient still report abdominal pain, patient reports she had a 4 days no bowel movement,But the patient denies nausea or vomiting,X-ray of abdomen show patient has at least partial small bowel obstruction. I called surgeon Dr. Mishra and report this condition to him. Change patient to the NPO, Intravenous IV fluids, encourage patient walk safely with nurse. Discussed with the patient, try to reduce opiates use for patient, Called and counseled with Dr. Mishra. Patient has no nausea or vomiting so patient no NG tube (3) Acute colitis Assessment/Plan: 71,Patient report abdominal pain is controlled, patient has no GI bleeding, patient hemoglobin is stable.We will switch to p.o. antibiotics For total 10 to 14 days Continue intravenous antibiotics Flagyl and Cipro for colitis. Patient still complaining some abdominal pain, but better than before, patient had x-ray of abdomen show partially small bowel obstruction. (4) Acute Crohn's disease with rectal bleeding Assessment/Plan: 12/18,Patient had colonoscopy, patient was found to have one deep ulcer in transverse colon, patient had biopsy and the biopsy results are pending now. Nasir bernard reported abdominal pain is good controlled, patient is a prescribed prednisone, we will Wean the prednisone dosage and suggest patient follow-up with [facility] as outpatient Patient had colonoscopy done 3 days ago which found patient had a deep ulcer in transverse colon in which surgeon suggest Crohn's. Patient had biopsy, it is pending. Patient had a strong family IBS disease, patient have son he had Crohn's disease for 27 years. Patient's father had FAP disease. Patient started with steroid already. No more rectal bleeding since she was admitted. pt has No BMs for four days and her bowel sounds are still diminished. but pt has no more rectal bleeding and HGB is stable. We will continue use prednisone, continue laboratory monitoring.Advised the patient follow-up with [facility] as soon as possible after discharge, patient stated she will go with her son's GI physician after discharge from the hospital (5) Lower GI bleed Assessment/Plan: 71, Resolved, Hemoglobin is stable stable, The hemoglobin dropped from 13 to 11 and then plateaued.Patient reported she has been no more GI bleeding since she had colonoscopy. (6) Bipolar 1 disorder Assessment/Plan: Patient motion is not stable on today morning but this afternoon she is better and controlled. Continue Her home meds continue for anxiety and depression while here. (7) Hypokalemia Assessment/Plan: resolved (8) Hypothyroidism Assessment/Plan: Her TSH is low, patient's Synthroid dosage reduced to 100 mcg daily from 112 mcg daily (9) HTN (hypertension) Assessment/Plan: Blood pressure is controlled, she continues on her home meds for this (10) Fibromyalgia Assessment/Plan: She is getting morphine, will be changed to Dilaudid which is treating all her pain complaints. (11) Tobacco use Assessment/Plan: She is getting a nicotine patch while here. (12)Bradycardia Patient's HR is between 50-60, blood pressure is good control, therefore her home metoprolol is on hold
[2019-12-19] MEDS: metroNIDAZOLE 250 MG TABLET PO SCH (19:25)
[2019-12-19] MEDS: METOCLOPRAMIDE 10 MG TABLET PO SCH ×2 (19:25→21:51)
[2019-12-19] MEDS: lamoTRIgine 100 MG TABLET PO SCH (21:51)
[2019-12-19] MEDS: CIPROFLOXACIN 250 MG TABLET PO SCH (21:51)
[2019-12-19] MEDS: lisinopriL 5 MG TABLET PO SCH (21:51)
[2019-12-20] MEDS: SODIUM CHLORIDE FLUSH 0.9% 10 ML SYRINGE IVP SCH ×2 (01:29→04:00)
[2019-12-20] MEDS: metroNIDAZOLE 250 MG TABLET PO SCH ×2 (02:44→10:15)
[2019-12-20 02:47] VITALS: BP 125/82
[2019-12-20] MEDS: ACETAMINOPHEN 325 MG TABLET PO PRN (02:58)
[2019-12-20] MEDS: LORazepam 0.5 MG TABLET PO PRN (04:00)
[2019-12-20 05:31] LABS: BASOPHILS % (AUTO) 0.2 %; EOSINOPHILS % (AUTO) 0.1 %; HGB - HEMOGLOBIN 10.3 g/dL (12.0-16.0); LYMPHOCYTES # (AUTO) 4.2 10^3/uL (1.5-3.5); LYMPHOCYTES % (AUTO) 38.3 %; MEAN CORPUSCULAR HEMOGLOBIN 28.7 pg (27.0-31.0); MEAN CORPUSCULAR HGB CONC 31.9 g/dL (32.0-36.0); MEAN PLATELET VOLUME 9.1 fL (7.9-10.8); MONOCYTES # (AUTO) 0.9 10^3/uL (0.0-1.0); MONOCYTES % (AUTO) 8.6 %; NEUTROPHILS # (AUTO) 5.7 10^3/uL (1.5-6.6); NEUTROPHILS % (AUTO) 52.2 %; PLT - PLATELET COUNT 409 10^3/uL (130-450); RED BLOOD COUNT 3.59 10^6/uL (4.20-5.40); RED CELL DISTRIBUTION WIDTH 13.5 % (12.0-15.0)
[2019-12-20 05:40] LABS: CALCIUM 8.5 mg/dL (8.5-10.3); CREATININE 0.9 mg/dL (0.4-1.0)
[2019-12-20] MEDS: SODIUM CHLORIDE 0.9% 1,000 ML IV SCH (06:02)
[2019-12-20] MEDS: LEVOTHYROXINE 100 MCG TABLET PO SCH (06:42)
[2019-12-20] MEDS: METOCLOPRAMIDE 10 MG TABLET PO SCH ×2 (06:42→10:15)
[2019-12-20] MEDS ORDERED: POTASSIUM CHLORIDE 20 MEQ TABLET PO ONE (06:45)
[2019-12-20] MEDS ORDERED: predniSONE 20 MG TABLET PO SCH (08:00)
--- NOTE | 2019-12-20 08:34 | Discharge Plan ---
Discharge Plan Problem Reviewed?: Yes Disposition: Home, Self Care Condition: Stable Prescriptions: Ciprofloxacin [Cipro] 250 mg PO BID #10 tablet Docusate Sodium 250Mg Capsule [Colace 250Mg Capsule] 250 - 500 mg PO DAILY PRN #10 capsule PRN Reason: Constipation predniSONE [Deltasone] 20 mg PO DAILYWM #10 tablet metroNIDAZOLE [Flagyl] 250 mg PO Q8H #15 tablet Levothyroxine [Synthroid] 100 mcg PO QDAC #15 tablet Diet: Soft Activity Restrictions: Activity as Tolerated Shower Restrictions: No (fall precaution) Instruction Topics: Docusate capsules, Metronidazole tablets or capsules, Ciprofloxacin tablets, Metoprolol tablets, Prednisone tablets, Crohn Disease, Constipation, ED Hypothyroidism, ED IBS, Bleeding Gastrointestinal Health Concerns: IBS, GI bleed, constipation, bradycardia, hypothyroidism Plan of Treatment: Your GI bleeding was resolved and You HGB is stable after you were treated in hospital. You are tolerated regular diet without nausea or vomiting and your abdomen pain is controlled as well. you also has bowel movement in hospital. You had colonoscopy done by GI surgeon. You were found to have colitis, antibiotics Cipro and Flagyl is prescribed for you to finish the treatment course of your infection colitis. You were found to have a deep ulcer in your transverse colon, biopsy is pending, it was suggested Crohn's disease. you were prescribed steroid Prednisone and your symptoms were resolved. Please followup with bundle tier and labeler in one to two weeks to continue manage your above GI issue, meanwhile followup with your PCP and have biopsy result. You were found to have mild bradycardia and your blood pressure was good controlled in hospital, your Metoprolol is hold now, followup with your PCP for further management. You were found to have low TSH, and your levothyroxine dosage was reduced to 100 mcg daily, please followup with your PCP for further management as well. Care Goals: stabilization and improvement of your medical conditions Assessment: discussed with you about the care plan, you understood and agreed. Additional Instructions or Follow Up instructions: you may followup with your PCP in one week, and followup with bundle tier and labeler in two weeks. Should your symptoms return or worsen, you may present ER or call 911 for help. No Smoking: If you smoke, Please STOP! Call for help. Follow-up with: Andreina Martinez ARNP, [employer] [facility] [Primary Care Provider] -
--- NOTE | 2019-12-20 09:11 | DISCHARGE SUMMARY ---
"Discharge Summary Admit Date: 12/13/19 Discharge Date: 12/20/19 Discharging Provider: Louis Sauceda Primary Care Provider: Andreina Beendict Condition at Discharge: Stable Discharge Disposition: 01 Home, Self Care Discharge Facility Name: home - DIAGNOSES Discharge Diagnoses with Status of Each Condition: (1) Acute constipation Resolved, Patient had a bowel movement at last night. patient is prescribed Docusate (2) Partial small bowel obstruction Resolved. Patient tolerated regular diet, without nausea or vomiting, patient had a bowel movement as well.CAT scan show no obstruction (3) Acute colitis Great improvement, patient has no abdominal pain, patient tolerated regular diet without nausea or vomiting or diarrhea or fever or chill. Patient is a prescription of antibiotics Flagyl and Cipro to finish the treatment course. Patient WBC is slightly elevated, it is likely caused by patient taking steroid. Follow-up with PCP and mis manager. (4) Acute Crohn's disease with rectal bleeding Well-controlled, patient has no abdominal pain, patient tolerated regular diet without nausea or vomiting or diarrhea.Patient is a prescription of Prednisone. Patient had colonoscopy in the hospital which found patient have a deep ulcer an d colitis in transverse colon. patient was suggested to have Crohn's disease by surgeon Dr. Espinosa. Patient was prescribed prednisone. After the patient had prednisone, his symptoms is good controlled. CAT scan of abdomen show it was well-controlled. Patient is strongly recommended to follow-up with g astroenterologist as outpatient as soon as possible, patient state she will follow-up with her son's gastroneurologist. Patient had biopsy done in the colonoscopy, advised the patient follow-up with her PCP to review the result. (5) Lower GI bleed Resolved, hemoglobin stable (6) Bipolar 1 disorder Chronic, stable (7) Hypokalemia Today it is 3.1, replaced. Continue home potassium pill. (8) Hypothyroidism Her TSH is low, patient's Synthroid dosage reduced to 100 mcg daily from 112 mcg daily, Follow with PCP for continued management (9) HTN (hypertension) Blood pressure is controlled. (10) Fibromyalgia Chronic, Continue home meds (11) Tobacco use Advised the patient quit smoking (12)Bradycardia Patient's HR is between 50-60, blood pressure is good control, therefore her home metoprolol is on hold, Follow-up with PCP for further management - HPI History of Present Illness: refer from Dr. Jeronimo's HPI on 12/13/2019 This is a pleasant 54-year-old female with a past medical history significant for hypertension, PTSD, hypothyroidism, and breast cancer in remission who presents today complaining of abdominal pain and bright red blood per rectum. She reports being in her usual state of health until today. She went with her granddaughter to a wound care visit in [place] when she started developing some lower abdominal cramping. She then had diarrhea and noticed dark blood clots as well. She returned home but she continued to have tenesmus. Go to the bathroom but she would not have any stool output but she continued to have bleeding. She believes it was about 5 tablespoons of blood. At around 8 PM, she had another bowel movement but it was bright red blood per rectum but she noted it was less blood than before. Due to her continued abdominal pain and bleeding, she sought medical attention. She reports no associated fevers, chills. She did have some nausea but no vomiting. The pain is quite severe and located in the lower abdomen. She reports no recent antibiotic use or sick contacts. She reports having a colonoscopy about 4 to 5 years ago which was unremarkable to her knowledge. Her father had FAP and she has one son with Crohn's disease. She does not take aspirin or any anticoagulants. In the emergency department, she was found to be afebrile with temperature of 36.7 C. Her heart rate was 63. Her blood pressure was 146/100. She was not tachypneic and saturating 100% on room air. Labs were significant for a white count of 14.3 with a left shift. CT of the abdomen pelvis with IV contrast was concerning for nonspecific acute colitis in the transverse and descending colon. She received ceftriaxone and Flagyl IV. She was given multiple doses of Dilaudid IV for pain control. She also received 2 L of normal saline. Due to the findings above, medicine was consulted for admission I did discuss goals of care with the patient and she would like to be a full code. - CONSULTS | PROCEDURES Consultations: Dr. Espinosa Procedures: Colonoscopy - HOSPITAL COURSE Hospital Course: Patient was admitted for abdominal pain and bright red blood per rectum. Patient had a colonoscopy done by GI surgeon. Patient had colonoscopy in the hospital which found patient have a deep ulcer and colitis in transverse colon. patient was suggested to have Crohn's disease by surgeon Dr. Espinosa. Patient was treated with antibiotics and Steroid Prednisone. Patient also developed constipation in the hospital, Initial x-ray show patient had a partial small bowel obstruction. CT of abdomen Which show she had a large volume of stool in the right and the transverse colon, Distal colon is decompressed, Majority of the thickening and percolonic stranding is resolved,No small bowel obstruction, no ascites, no penumoperitoneum. After treatment, patient had bowel movement, Patient tolerated regular diet without nausea or vomiting or diarrhea or abdominal pain. - ALLERGIES Allergies/Adverse Reactions: Allergies Allergy/AdvReac Type Severity Reaction Status Date / Time prochlorperazine edisylate * Allergy Severe Hallucinati Verified 12/12/19 21:06 [From Compazine] ons prochlorperazine maleate * Allergy Severe Hallucinati Verified 12/12/19 21:06 [From Compazine] ons Sulfa (Sulfonamide Allergy Severe Hives Verified 12/12/19 21:06 Antibiotics) tetracycline [Tetracycline] Allergy Severe Blisters Verified 12/12/19 21:06 bee venom protein (honey bee) Allergy Anaphylaxis Verified 12/12/19 21:06 cefuroxime [From Ceftin] Allergy Unknown Verified 12/14/19 08:11 ketorolac [From Toradol] Allergy Unknown Verified 12/14/19 08:11 midazolam [From Versed] Allergy Unknown Verified 12/14/19 08:11 nortriptyline Allergy Unknown Verified 12/14/19 08:11 sumatriptan [From Imitrex] AdvReac Severe Chest Verified 12/12/19 21:06 Pain/Anxiety sumatriptan succinate * AdvReac Severe Chest Verified 12/12/19 21:06 [From Imitrex] Pain/Anxiety latex AdvReac Itching Verified 12/12/19 21:06 - MEDICATIONS Home Medications: Ambulatory Orders Medication Instructions Recorded Confirmed Albuterol Sulfate [Proair Hfa 2 puffs INH Q4H PRN 07/14/15 12/13/19 Inhaler] EPINEPHrine [Epinephrine] 0.3 mg IM ONCE PRN 07/14/15 12/13/19 Gabapentin 900 mg PO BID 07/14/15 12/13/19 Oxybutynin [Ditropan] 5 mg PO BID 07/14/15 12/13/19 Venlafaxine HCl [Effexor Xr] 150 mg PO DAILY 07/14/15 12/13/19 Ondansetron HCl 4 mg PO QPM PRN 04/30/16 12/13/19 Denosumab [Prolia] 60 mg INJ .[id number] 05/16/17 12/13/19 Butalb/Acetaminophen/Caffeine 1 - 2 cap PO Q4H PRN MDD 6 caps 01/23/19 12/13/19 [Fioricet 50-300-40 mg Capsule] Calcium Carbonate/Vitamin D3 2 tab PO DAILY 01/23/19 12/13/19 [Calcium 500-Vit D3 200 Tablet] Lansoprazole 15 mg PO DAILY 01/23/19 12/13/19 Potassium Chloride 20 meq PO DAILY 01/23/19 12/13/19 Spironolactone 75 mg PO DAILY 01/23/19 12/13/19 lamoTRIgine [Lamictal] 200 mg PO QPM 01/23/19 12/13/19 lisinopriL [Lisinopril] 10 mg PO QPM 01/23/19 12/13/19 Dextroamphetamine/Amphetamine 30 mg PO DAILY 12/13/19 12/13/19 [Adderall Xr 30 mg Capsule] Fluticasone [Flonase] 1 sprays RAUL BID 12/13/19 12/13/19 Prazosin HCl 2 mg PO QPM PRN 12/13/19 12/13/19 Ciprofloxacin [Cipro] 250 mg PO BID #10 tablet 12/20/19 Docusate Sodium 250Mg Capsule 250 - 500 mg PO DAILY PRN #10 12/20/19 [Colace 250Mg Capsule] capsule Levothyroxine [Synthroid] 100 mcg PO QDAC #15 tablet 12/20/19 metroNIDAZOLE [Flagyl] 250 mg PO Q8H #15 tablet 12/20/19 predniSONE [Deltasone] 20 mg PO DAILYWM #10 tablet 12/20/19 - PHYSICAL EXAM AT DISCHARGE General Appearance: positive: No acute distress, Alert. negative: Lethargic Eyes Bilateral: positive: Normal inspection, PERRL, No lid inflammation ENT: positive: ENT inspection nml, Pharynx nml, No signs of dehydration. negative: Purulent nasal drainage Neck: positive: Nml inspection, Thyroid nml, Trachea midline. negative: Thyromegaly, Stiff neck, Tracheal deviation Respiratory: positive: Chest non-tender, No respiratory distress, Breath sounds nml. negative: Wheezes, Rales, Rhonchi Cardiovascular: positive: Regular rate & rhythm, No murmur, No gallop, Bradycardia. negative: Tachycardia, Systolic murmur, Diastolic murmur Peripheral Pulses: positive: 2+ Abdomen: positive: Non-tender, No organomegaly, Nml bowel sounds, No distention. negative: Tenderness, Guarding, Rebound Back: positive: Nml inspection. negative: CVA tenderness (R), CVA tenderness (L) Skin: positive: Color nml, No rash, Warm, Dry. negative: Cyanosis, Diaphoresis, Pallor Extremities: positive: Non-tender, Full ROM, Nml appearance. negative: Calf tenderness, Rodrigo's sign/cords Neurologic/Psychiatric: positive: Oriented x3, Motor nml, Sensation nml. negative: Weakness, Sensory loss, Facial droop, Slurred/abnml speech, Depressed mood/affect - LABS Result Diagrams: 12/20/19 04:50 12/20/19 04:50 - DIAGNOSTIC IMAGING Diagnostic Imaging Results Comments: CT of abdomen Which show she had a large volume of stool in the right and the transverse colon, Distal colon is decompressed, Majority of the thickening and percolonic stranding is resolved,No small bowel obstruction, no ascites, no penumoperitoneum. - SEPSIS Current Stage of Sepsis: Ruled out - FOLLOW UP Follow Up: Your GI bleeding was resolved and You HGB is stable after you were treated in hospital. You are tolerated regular diet without nausea or vomiting and your abdomen pain is controlled as well. you also has bowel movement in hospital. You had colonoscopy done by GI surgeon. You were found to have colitis, antibiotics Cipro and Flagyl is prescribed for you to finish the treatment course of your infection colitis. You were found to have a deep ulcer in your transverse colon, biopsy is pending, it was suggested Crohn's disease. you were prescribed s teroid Prednisone and your symptoms were resolved. Please followup with mis manager in one to two weeks to continue manage your above GI issue, meanwhile followup with your PCP and have biopsy result. You were found to have mild bradycardia and your blood pressure was good controlled in hospital, your Metoprolol is hold now, followup with your PCP for further management. You were found to have low TSH, and your levothyroxine dosage was reduced to 100 mcg daily, please followup with your PCP for further management as well. you may followup with your PCP in one week, and followup with mis manager in two weeks. Should your symptoms return or worsen, you may present ER or call 911 for help. - TIME SPENT Time Spent in Discharge (Minutes): 30"
[2019-12-20] MEDS: FLUTICASONE NASAL SPRAY NAS SCH (10:13)
[2019-12-20] MEDS: SPIRONOLACTONE 25 MG TABLET PO SCH (10:13)
[2019-12-20] MEDS: VENLAFAXINE ER 75 MG CAPSULE PO SCH (10:14)
[2019-12-20] MEDS: CIPROFLOXACIN 250 MG TABLET PO SCH (10:14)
[2019-12-20] MEDS: OXYBUTYNIN 5MG TABLET PO SCH (10:14)
[2019-12-20] MEDS: CHOLECALCIFEROL 400 UNIT TABLET PO SCH (10:15)
[2019-12-20] MEDS: GABAPENTIN 300 MG CAPSULE PO SCH (10:15)
[2019-12-20] MEDS: CALCIUM CARBONATE CHEW 500 MG TABLET PO SCH (10:16)
[2019-12-20] MEDS: polyethylene glycoL 3350 17 GM PACKET PO SCH (10:17)
[2019-12-20] MEDS: SENNA 8.6 MG TABLET PO SCH (10:17)
[2019-12-20] MEDS: DOCUSATE SODIUM 250 MG CAPSULE PO SCH (10:17)
[2019-12-20] MEDS: NICOTINE 7 MG PATCH TOP SCH (10:18)
[2019-12-20] MEDS: AMPHETAMINE PO SCH (10:19)
[2019-12-20] MEDS: DEXTROAMPHETAMINE PO SCH (10:19)
== END 2019-12-20 11:52 | disposition home or self-care (01) | DRG 386 ==
LOC: ED 20:56 → MS2 12-13 01:12 → OBSVTOIN 12-15 11:14
PROVIDERS: ADMIT Internal Medicine; ATTEND Nurse Practitioner Gerontology
PROC: 0DBL8ZX Excision of Transverse Colon, Via Natural or Artificial Opening Endoscopic, Diagnostic (ICD-10-PCS; principal; 2019-12-14 12:00)
DX: K51.811 Other ulcerative colitis with rectal bleeding (principal); F31.89 Other bipolar disorder; K59.00 Constipation, unspecified; E87.6 Hypokalemia; I10 Essential (primary) hypertension; R00.1 Bradycardia, unspecified; E03.9 Hypothyroidism, unspecified; F17.210 Nicotine dependence, cigarettes, uncomplicated; M79.7 Fibromyalgia; J45.909 Unspecified asthma, uncomplicated; F43.10 Post-traumatic stress disorder, unspecified; F41.9 Anxiety disorder, unspecified; M81.0 Age-related osteoporosis without current pathological fracture; H35.30 Unspecified macular degeneration; Z72.89 Other problems related to lifestyle; Z85.3 Personal history of malignant neoplasm of breast; Z79.899 Other long term (current) drug therapy; Z79.51 Long term (current) use of inhaled steroids; Z90.10 Acquired absence of unspecified breast and nipple
CPT/HCPCS: 36415; 45380; 74018; 74019; 74177; 80048; 80053; 80175; 81003; 82274; 83690; 83735; 83993; 84100; 84443; 85014; 85018; 85025; 85651; 86140; 87045; 87046; 87493; 96361; 96365; 96366; 96367; 96375; 96376; 99285; A9270; G0378; J1170; J7120; J7512; Q9963; Q9967; 81001; 82272; 87086

== ENCOUNTER 2020-04-08 02:39 | Emergency (ER) | payer MEDICAID ==
[2020-04-08 02:44] VITALS: BP 114/66
[2020-04-08 02:56] LABS: BILIRUBIN,URINE NEGATIVE (NEGATIVE); GLUCOSE, URINE (UA) NEGATIVE (NEGATIVE); KETONES,URINE (UA) NEGATIVE (NEGATIVE); LEUKOCYTE ESTERASE, URINE MODERATE (NEGATIVE); NITRITE,URINE NEGATIVE (NEGATIVE); OCCULT BLOOD,URINE LARGE (NEGATIVE); PH,URINE 5.5 PH (5.0-7.5); PROTEIN,URINE 30 mg/dL (NEGATIVE); UROBILINOGEN,URINE 0.2 (NORMAL) E.U./dL (NORMAL)
[2020-04-08 02:57] LABS: CLARITY,URINE SL. CLOUDY (CLEAR)
[2020-04-08 03:09] LABS: BACTERIA,URINE Few /HPF (None Seen); RBC,URINE TNTC /HPF (0-5); SQUAMOUS EPITHELIAL CELL,UR RARE Squamous (<= Few)
--- NOTE | 2020-04-08 03:20 | ED Physician Documentation ---
PD HPI FEMALE - Stated complaint Stated Complaint: FEM - Chief complaint Chief Complaint: UTI - History obtained from History obtained from: Patient - History of Present Illness Timing - onset: Today Timing - duration: Hours Timing - details: Gradual onset, Still present Associated symptoms: Urinary frequency, Hematuria Similar symptoms before: Diagnosis (UTI) Recently seen: Not recently seen - Additional information Additional information: 54-year-old female with history of hypertension PTSD hypothyroidism and breast cancer in remission has developed a urinary tract infection. She has had a number of urinary tract infections and these usually start with hematuria. She does not usually have symptoms prior to that. She has most recently been on Macrobid with success. She has allergies to doxycycline and Sulfa. Review of Systems Constitutional: denies: Fever Eyes: denies: Decreased vision Ears: denies: Ear pain Nose: denies: Congestion Throat: denies: Sore throat Cardiac: denies: Chest pain / pressure, Palpitations Respiratory: denies: Dyspnea, Cough GI: denies: Abdominal Pain, Nausea, Vomiting : reports: Frequency, Hematuria. 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: Breast cancer : None HEENT: Macular degeneration Psych: Depression, Anxiety, Post traumatic stress disorder Musculoskeletal: Fibromyalgia, Osteoporosis Derm: None - Past Surgical History Past Surgical History: Yes General: Cholecystectomy Ortho: Carpal Tunnel surgery /CANDY CUTTER HAND: Hysterectomy, Oophrectomy, Mastectomy HEENT: Tonsil/Adenoidectomy - Present Medications Home Medications: Ambulatory Orders Medication Instructions Recorded Confirmed Albuterol Sulfate [Proair Hfa 2 puffs INH Q4H PRN 07/14/15 12/13/19 Inhaler] EPINEPHrine [Epinephrine] 0.3 mg IM ONCE PRN 07/14/15 12/13/19 Gabapentin 900 mg PO BID 07/14/15 12/13/19 Oxybutynin [Ditropan] 5 mg PO BID 07/14/15 12/13/19 Venlafaxine HCl [Effexor Xr] 150 mg PO DAILY 07/14/15 12/13/19 Ondansetron HCl 4 mg PO QPM PRN 04/30/16 12/13/19 Denosumab [Prolia] 60 mg INJ .[id number] 05/16/17 12/13/19 Butalb/Acetaminophen/Caffeine 1 - 2 cap PO Q4H PRN MDD 6 caps 01/23/19 12/13/19 [Fioricet 50-300-40 mg Capsule] Calcium Carbonate/Vitamin D3 2 tab PO DAILY 01/23/19 12/13/19 [Calcium 500-Vit D3 200 Tablet] Lansoprazole 15 mg PO DAILY 01/23/19 12/13/19 Potassium Chloride 20 meq PO DAILY 01/23/19 12/13/19 Spironolactone 75 mg PO DAILY 01/23/19 12/13/19 lamoTRIgine [Lamictal] 200 mg PO QPM 01/23/19 12/13/19 lisinopriL [Lisinopril] 10 mg PO QPM 01/23/19 12/13/19 Dextroamphetamine/Amphetamine 30 mg PO DAILY 12/13/19 12/13/19 [Adderall Xr 30 mg Capsule] Fluticasone [Flonase] 1 sprays RAUL BID 12/13/19 12/13/19 Prazosin HCl 2 mg PO QPM PRN 12/13/19 12/13/19 Ciprofloxacin [Cipro] 250 mg PO BID #10 tablet 12/20/19 Docusate Sodium 250Mg Capsule 250 - 500 mg PO DAILY PRN #10 12/20/19 [Colace 250Mg Capsule] capsule Levothyroxine [Synthroid] 100 mcg PO QDAC #15 tablet 12/20/19 metroNIDAZOLE [Flagyl] 250 mg PO Q8H #15 tablet 12/20/19 predniSONE [Deltasone] 20 mg PO DAILYWM #10 tablet 12/20/19 Fluconazole [Diflucan] 150 mg PO ONCE #2 tablet 04/08/20 Nitrofurantoin Monohyd/M-Cryst 100 mg PO BID #14 capsule 04/08/20 [Macrobid 100 mg Capsule] - Allergies Allergies/Adverse Reactions: Allergies Allergy/AdvReac Type Severity Reaction Status Date / Time prochlorperazine edisylate * Allergy Severe Hallucinati Verified 12/12/19 21:06 [From Compazine] ons prochlorperazine maleate * Allergy Severe Hallucinati Verified 12/12/19 21:06 [From Compazine] ons Sulfa (Sulfonamide Allergy Severe Hives Verified 12/12/19 21:06 Antibiotics) tetracycline [Tetracycline] Allergy Severe Blisters Verified 12/12/19 21:06 bee venom protein (honey bee) Allergy Anaphylaxis Verified 12/12/19 21:06 cefuroxime [From Ceftin] Allergy Unknown Verified 12/14/19 08:11 ketorolac [From Toradol] Allergy Unknown Verified 12/14/19 08:11 midazolam [From Versed] Allergy Unknown Verified 12/14/19 08:11 nortriptyline Allergy Unknown Verified 12/14/19 08:11 sumatriptan [From Imitrex] AdvReac Severe Chest Verified 12/12/19 21:06 Pain/Anxiety sumatriptan succinate * AdvReac Severe Chest Verified 12/12/19 21:06 [From Imitrex] Pain/Anxiety latex AdvReac Itching Verified 12/12/19 21:06 - Social History Does the pt smoke?: Yes Smoking Status: Current every day smoker Does the pt drink ETOH?: Yes Does the pt have substance abuse?: Yes - Immunizations Immunizations are current?: Yes - POLST Patient has POLST: No PD ED PE NORMAL - Vitals Vital signs reviewed: Yes (normal ) - General General: Alert and oriented X 3, No acute distress, Well developed/nourished - HEENT HEENT: Atraumatic, PERRL, EOMI - Respiratory Respiratory: No respiratory distress - Back Back: No CVA TTP, No spinal TTP - Derm Derm: Normal color, Warm and dry, No rash - Extremities Extremities: No deformity, No edema, No calf tenderness / cord - Neuro Neuro: Alert and oriented X 3, molder trimmer 2-12 intact, No motor deficit, No sensory deficit, Normal speech Eye Opening: Spontaneous Motor: Obeys Commands Verbal: Oriented GCS Score: 15 - Psych Psych: Normal mood, Normal affect Results - Vitals Vitals: Vital Signs - 24 hr 04/08/20 02:41 Temperature 36.7 C Heart Rate 56 L Respiratory 14 Rate Blood Pressure 114/66 O2 Saturation 99 Oxygen O2 Source Room air - Labs Labs: Laboratory Tests 04/08/20 02:48 Urine Color YELLOW Urine Clarity SL. CLOUDY Urine pH 5.5 Ur Specific [place] 1.025 Urine Protein 30 H Urine Glucose (UA) NEGATIVE Urine Ketones NEGATIVE Urine Occult Blood LARGE H Urine Nitrite NEGATIVE Urine Bilirubin NEGATIVE Urine Urobilinogen 0.2 (NORMAL) Ur Leukocyte Esterase MODERATE H Urine RBC TNTC H Urine WBC >25 H Ur Squamous Epith Cells RARE Squamous Urine Bacteria Few Ur Microscopic Review INDICATED Urine Culture Comments INDICATED PD MEDICAL DECISION MAKING - ED course Complexity details: reviewed old records, reviewed results, re-evaluated patient, considered differential, d/w patient, d/w family ED course: 54-year-old female has developed hematuria this evening and has evidence of urinary tract infection on microscopic examination of the urine. Her most recent urine grew an extended spectrum beta-lactamase producing E. coli that was sensitive to nitrofurantoin. Departure - Departure Disposition: Home, Self Care Clinical Impression: UTI (urinary tract infection) Qualifiers: Urinary tract infection type: acute cystitis Hematuria presence: with hematuria Qualified Code(s): N30.01 - Acute cystitis with hematuria Condition: Stable Instructions: ED UTI Cystitis Female Follow-Up: Andreina Martinez ARNP, MEDIA PRODUCER-C [Primary Care Provider] - Prescriptions: Fluconazole [Diflucan] 150 mg PO ONCE #2 tablet Nitrofurantoin Monohyd/M-Cryst [Macrobid 100 mg Capsule] 100 mg PO BID #14 capsule
[2020-04-08] MEDS ORDERED: NITROFURANTOIN MACRO 100 MG CAPSULE PO STA (04:30)
== END 2020-04-08 04:38 | disposition home or self-care (01) ==
LOC: ED 02:39
DX: N30.01 Acute cystitis with hematuria (principal); Z88.1 Allergy status to other antibiotic agents; Z88.2 Allergy status to sulfonamides; I10 Essential (primary) hypertension; E03.9 Hypothyroidism, unspecified; F43.10 Post-traumatic stress disorder, unspecified; Z08 Encounter for follow-up examination after completed treatment for malignant neoplasm; Z85.3 Personal history of malignant neoplasm of breast; F17.200 Nicotine dependence, unspecified, uncomplicated
CPT/HCPCS: 81001; 87086; 99283; A9270; 81003

== ENCOUNTER 2020-06-23 18:33 | Emergency (ER) | payer MEDICAID ==
[2020-06-23] MEDS ORDERED: LORazepam 1 MG TABLET PO STA (18:35)
[2020-06-23] MEDS ORDERED: LORazepam 2 MG/ML VIAL IM STA (18:35)
--- NOTE | 2020-06-23 18:37 | ED Physician Documentation ---
PD HPI MHE - Stated complaint Stated Complaint: ANXIETY - History obtained from History obtained from: Patient (54-year-old woman is already in the emergency department, her is actively dying. She requests something for the anxiety. 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: Breast cancer : None HEENT: Macular degeneration Psych: Depression, Anxiety, Post traumatic stress disorder Musculoskeletal: Fibromyalgia, Osteoporosis Derm: None - Past Surgical History Past Surgical History: Yes General: Cholecystectomy Ortho: Carpal Tunnel surgery /GAS FITTER HELPER: Hysterectomy, Oophrectomy, Mastectomy HEENT: Tonsil/Adenoidectomy - Present Medications Home Medications: Ambulatory Orders Medication Instructions Recorded Confirmed Albuterol Sulfate [Proair Hfa 2 puffs INH Q4H PRN 07/14/15 12/13/19 Inhaler] EPINEPHrine [Epinephrine] 0.3 mg IM ONCE PRN 07/14/15 12/13/19 Gabapentin 900 mg PO BID 07/14/15 12/13/19 Oxybutynin [Ditropan] 5 mg PO BID 07/14/15 12/13/19 Venlafaxine HCl [Effexor Xr] 150 mg PO DAILY 07/14/15 12/13/19 Ondansetron HCl 4 mg PO QPM PRN 04/30/16 12/13/19 Denosumab [Prolia] 60 mg INJ .[id number] 05/16/17 12/13/19 Butalb/Acetaminophen/Caffeine 1 - 2 cap PO Q4H PRN MDD 6 caps 01/23/19 12/13/19 [Fioricet 50-300-40 mg Capsule] Calcium Carbonate/Vitamin D3 2 tab PO DAILY 01/23/19 12/13/19 [Calcium 500-Vit D3 200 Tablet] Lansoprazole 15 mg PO DAILY 01/23/19 12/13/19 Potassium Chloride 20 meq PO DAILY 01/23/19 12/13/19 Spironolactone 75 mg PO DAILY 01/23/19 12/13/19 lamoTRIgine [Lamictal] 200 mg PO QPM 01/23/19 12/13/19 lisinopriL [Lisinopril] 10 mg PO QPM 01/23/19 12/13/19 Dextroamphetamine/Amphetamine 30 mg PO DAILY 12/13/19 12/13/19 [Adderall Xr 30 mg Capsule] Fluticasone [Flonase] 1 sprays RAUL BID 12/13/19 12/13/19 Prazosin HCl 2 mg PO QPM PRN 12/13/19 12/13/19 Ciprofloxacin [Cipro] 250 mg PO BID #10 tablet 12/20/19 Docusate Sodium 250Mg Capsule 250 - 500 mg PO DAILY PRN #10 12/20/19 [Colace 250Mg Capsule] capsule Levothyroxine [Synthroid] 100 mcg PO QDAC #15 tablet 12/20/19 metroNIDAZOLE [Flagyl] 250 mg PO Q8H #15 tablet 12/20/19 predniSONE [Deltasone] 20 mg PO DAILYWM #10 tablet 12/20/19 Fluconazole [Diflucan] 150 mg PO ONCE #2 tablet 04/08/20 Nitrofurantoin Monohyd/M-Cryst 100 mg PO BID #14 capsule 04/08/20 [Macrobid 100 mg Capsule] LORazepam [Ativan] 1 mg PO TID PRN #10 tablet 06/23/20 - Allergies Allergies/Adverse Reactions: Allergies Allergy/AdvReac Type Severity Reaction Status Date / Time prochlorperazine edisylate * Allergy Severe Hallucinati Verified 12/12/19 21:06 [From Compazine] ons prochlorperazine maleate * Allergy Severe Hallucinati Verified 12/12/19 21:06 [From Compazine] ons Sulfa (Sulfonamide Allergy Severe Hives Verified 12/12/19 21:06 Antibiotics) tetracycline [Tetracycline] Allergy Severe Blisters Verified 12/12/19 21:06 bee venom protein (honey bee) Allergy Anaphylaxis Verified 12/12/19 21:06 cefuroxime [From Ceftin] Allergy Unknown Verified 12/14/19 08:11 ketorolac [From Toradol] Allergy Unknown Verified 12/14/19 08:11 midazolam [From Versed] Allergy Unknown Verified 12/14/19 08:11 nortriptyline Allergy Unknown Verified 12/14/19 08:11 sumatriptan [From Imitrex] AdvReac Severe Chest Verified 12/12/19 21:06 Pain/Anxiety sumatriptan succinate * AdvReac Severe Chest Verified 12/12/19 21:06 [From Imitrex] Pain/Anxiety latex AdvReac Itching Verified 12/12/19 21:06 - Social History Does the pt smoke?: Yes Smoking Status: Current every day smoker Does the pt drink ETOH?: Yes Does the pt have substance abuse?: Yes - Immunizations Immunizations are current?: Yes - POLST Patient has POLST: No PD ED PE NORMAL - Vitals Vital signs reviewed: Yes - General General: Alert and oriented X 3, Other (She is at her 's bedside. He is near . She is appropriately tearful) - Neuro Neuro: Alert and oriented X 3, Normal speech - Psych Psych: Normal mood, Normal affect Results - Vitals Vitals: Oxygen O2 Source Room air Departure - Departure Disposition: Home, Self Care Clinical Impression: Grief reaction Condition: Good Record reviewed to determine appropriate education?: Yes Instructions: ED Grief Reaction, Grief and Loss Prescriptions: LORazepam [Ativan] 1 mg PO TID PRN #10 tablet PRN Reason: Anxiety Comments: Return as needed. Follow-up with your doctor and consider counseling for grief. Do not drink or drive while taking lorazepam.
[2020-06-23 19:08] VITALS: BP 140/86
== END 2020-06-23 19:10 | disposition home or self-care (01) ==
LOC: ED 18:33
DX: F43.22 Adjustment disorder with anxiety (principal); I10 Essential (primary) hypertension; F17.200 Nicotine dependence, unspecified, uncomplicated
CPT/HCPCS: 96372; 99283; J2060; J8499

== ENCOUNTER 2020-11-07 14:27 | Outpatient (CLI) | payer MEDICAID ==
[2020-11-07 14:46] LABS: BASOPHILS % (AUTO) 0.3 %; EOSINOPHILS % (AUTO) 0.4 %; HGB - HEMOGLOBIN 14.1 g/dL (12.0-16.0); LYMPHOCYTES # (AUTO) 2.5 10^3/uL (1.5-3.5); LYMPHOCYTES % (AUTO) 34.2 %; MEAN CORPUSCULAR HEMOGLOBIN 30.3 pg (27.0-31.0); MEAN CORPUSCULAR HGB CONC 33.6 g/dL (32.0-36.0); MEAN CORPUSCULAR VOLUME 90.3 fL (81.0-99.0); MONOCYTES # (AUTO) 0.6 10^3/uL (0.0-1.0); MONOCYTES % (AUTO) 7.9 %; NEUTROPHILS # (AUTO) 4.1 10^3/uL (1.5-6.6); NEUTROPHILS % (AUTO) 56.9 %; PLT - PLATELET COUNT 361 10^3/uL (130-450); RED BLOOD COUNT 4.65 10^6/uL (4.20-5.40); RED CELL DISTRIBUTION WIDTH 12.6 % (12.0-15.0); WHITE BLOOD COUNT 7.2 x10^3/uL (4.8-10.8)
[2020-11-07 15:04] LABS: % IRON SATURATION 13 % (20-50); IRON 58 ug/dL (28-170); TOTAL IRON BINDING CAPACITY 435 ug/dL (250-450); TRANSFERRIN 311 mg/dL (192-382)
== END 2020-11-07 14:28 | disposition home or self-care (01) ==
LOC: LAB 14:27
PROVIDERS: ATTEND Internal Medicine
DX: E61.1 Iron deficiency (principal)
CPT/HCPCS: 36415; 82728; 83540; 84466; 85025

== ENCOUNTER 2021-04-01 12:48 | Emergency (ER) | payer MEDICAID ==
--- NOTE | 2021-04-01 14:13 | ED Physician Documentation ---
History of Present Illness - Stated complaint Stated Complaint: FEVER/SORE THROAT - Chief complaint Chief Complaint: General - History obtained from History obtained from: Patient - History of Present Illness Timing: How many days ago (3) Pain level max: 5 Pain level now: 4 - Additonal information Additional information: Patient is a 55-year-old female who has been sick for the past 2 to 3 days. She complains of fever, body ache, cough, congestion. Has received 1 Covid vaccination. States Motrin and Tylenol are not helping. Occasionally feels short of breath. She states that her sore throat has gotten worse. 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 Dry cough. Review of Systems Constitutional: reports: Chills, Myalgias. 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 HEENT: Macular degeneration Psych: Depression, Anxiety, Post traumatic stress disorder Musculoskeletal: Osteoarthritis, Fibromyalgia, Osteoporosis Derm: None - Past Surgical History Past Surgical History: Yes General: Cholecystectomy Ortho: Carpal Tunnel surgery /IDENTIFICATION PRINTING MACHINE SETTER: Hysterectomy, Oophrectomy, Mastectomy HEENT: Tonsil/Adenoidectomy - Present Medications Home Medications: Ambulatory Orders Medication Instructions Recorded Confirmed Albuterol Sulfate [Proair Hfa 2 puffs INH Q4H PRN 07/14/15 04/01/21 Inhaler] EPINEPHrine [Epinephrine] 0.3 mg IM ONCE PRN 07/14/15 07/21/20 Gabapentin 900 mg PO BID 07/14/15 07/21/20 Oxybutynin [Ditropan] 5 mg PO BID 07/14/15 04/01/21 Venlafaxine HCl [Effexor Xr] 150 mg PO DAILY 07/14/15 04/01/21 ondansetron HCL [Ondansetron HCl] 4 mg PO QPM PRN 04/30/16 07/21/20 Denosumab [Prolia] 60 mg [id number] 05/16/17 04/01/21 Butalb/Acetaminophen/Caffeine 1 - 2 cap PO Q4H PRN MDD 6 caps 01/23/19 04/01/21 [Fioricet 50-300-40 mg Capsule] Calcium Carbonate/Vitamin D3 2 tab PO DAILY 01/23/19 04/01/21 [Calcium 500-Vit D3 200 Tablet] Lansoprazole 15 mg PO DAILY 01/23/19 07/21/20 Potassium Chloride 20 meq PO DAILY 01/23/19 07/21/20 Spironolactone 75 mg PO DAILY 01/23/19 07/21/20 lamoTRIgine [Lamictal] 200 mg PO QPM 01/23/19 04/01/21 lisinopriL [Lisinopril] 10 mg PO QPM 01/23/19 04/01/21 Dextroamphetamine/Amphetamine 30 mg PO DAILY 12/13/19 07/21/20 [Adderall Xr 30 mg Capsule] Prazosin HCl 2 mg PO QPM PRN 12/13/19 04/01/21 Docusate Sodium 250Mg Capsule 250 - 500 mg PO DAILY PRN #10 12/20/19 07/21/20 [Colace 250Mg Capsule] capsule Levothyroxine [Synthroid] 100 mcg PO QDAC #15 tablet 12/20/19 04/01/21 predniSONE [Deltasone] 20 mg PO DAILYWM #10 tablet 12/20/19 07/21/20 LORazepam [Ativan] 1 mg PO TID PRN #10 tablet 06/23/20 04/01/21 - Allergies Allergies/Adverse Reactions: Allergies Allergy/AdvReac Type Severity Reaction Status Date / Time prochlorperazine edisylate * Allergy Severe Hallucinati Verified 04/01/21 13:00 [From Compazine] ons prochlorperazine maleate * Allergy Severe Hallucinati Verified 04/01/21 13:00 [From Compazine] ons Sulfa (Sulfonamide Allergy Severe Hives Verified 04/01/21 13:00 Antibiotics) tetracycline [Tetracycline] Allergy Severe Blisters Verified 04/01/21 13:00 bee venom protein (honey bee) Allergy Anaphylaxis Verified 04/01/21 13:00 cefuroxime [From Ceftin] Allergy Unknown Verified 04/01/21 13:00 ketorolac [From Toradol] Allergy Unknown Verified 04/01/21 13:00 midazolam [From Versed] Allergy Unknown Verified 04/01/21 13:00 nortriptyline Allergy Unknown Verified 04/01/21 13:00 sumatriptan [From Imitrex] AdvReac Severe Chest Verified 04/01/21 13:00 Pain/Anxiety sumatriptan succinate * AdvReac Severe Chest Verified 04/01/21 13:00 [From Imitrex] Pain/Anxiety latex AdvReac Itching Verified 04/01/21 13:00 - Social History Does the pt smoke?: Yes Smoking Status: Current every day smoker Does the pt drink ETOH?: Yes Does the pt have substance abuse?: Yes - Immunizations Immunizations are current?: Yes - POLST Patient has POLST: No PD ED PE NORMAL - Vitals Vital signs reviewed: Yes - General General: Alert and oriented X 3, No acute distress - HEENT HEENT: PERRL, Moist mucous membranes, Other (mild posterior oropharyngeal erythema, no exudates. uvula midline. ) - Neck Neck: Supple, no meningeal sign - Cardiac Cardiac: RRR, Strong equal pulses - Respiratory Respiratory: No respiratory distress, Clear bilaterally - Abdomen Abdomen: Soft, Non tender, Non distended - Back Back: No CVA TTP, No spinal TTP - Derm Derm: Warm and dry - Extremities Extremities: No edema, No calf tenderness / cord - Neuro Neuro: Alert and oriented X 3 - Psych Psych: Normal mood, Normal affect Results - Vitals Vitals: Vital Signs - 24 hr 04/01/21 04/01/21 12:55 15:36 Temperature 36.8 C 37.7 C Heart Rate 84 72 Respiratory 16 16 Rate Blood Pressure 142/77 H 118/83 H O2 Saturation 100 97 Oxygen O2 Source Room air - Labs Labs: Laboratory Tests 04/01/21 04/01/21 13:45 13:45 Nasal Adenovirus (PCR) NOT DETECTED Nasal B. parapertussis DNA (PCR) NOT DETECTED Nasal Coronavir 229E PCR NOT DETECTED Nasal Coronavir HKU1 PCR NOT DETECTED Nasal Coronavir NL63 PCR NOT DETECTED Nasal Coronavir OC43 PCR NOT DETECTED Nasal Enterovir/Rhinovir PCR NOT DETECTED Nasal Influenza B PCR NOT DETECTED Nasal Influenza A PCR NOT DETECTED Nasal Parainfluen 1 PCR NOT DETECTED Nasal Parainfluen 2 PCR NOT DETECTED Nasal Parainfluen 3 PCR NOT DETECTED Nasal Parainfluen 4 PCR NOT DETECTED Nasal RSV (PCR) NOT DETECTED Nasal B.pertussis DNA PCR NOT DETECTED Nasal C.pneumoniae (PCR) NOT DETECTED Jam Human Metapneumo PCR NOT DETECTED Nasal M.pneumoniae (PCR) NOT DETECTED Nasal SARS-CoV-2 (PCR) NOT DETECTED Group A Strep Rapid Negative PD MEDICAL DECISION MAKING - ED course Complexity details: reviewed results, re-evaluated patient, considered differential, d/w patient ED course: Patient is well-appearing, nontoxic. No fever. No hypoxia. No respiratory distress. Given a dose of dexamethasone for the pharyngitis. No wheezing on exam. Negative strep. Negative respiratory PCR. Negative Covid. Likely viral syndrome. We will have her follow-up with her doctor for further care. Patient counseled regarding signs and symptoms for which I believe and urgent re- evaluation would be necessary. Patient with good understanding of and agreement to plan and is comfortable going home at this time This document was made in part using voice recognition software. While efforts are made to proofread this document, sound alike and grammatical errors may occur. Departure - Departure Disposition: 01 Home, Self Care Clinical Impression: Viral syndrome Condition: Good Instructions: ED Viral Syndrome Follow-Up: Price Urbina DO [Primary Care Provider] - Within 1 week Comments: Drink plenty of fluids and rest. Return if you worsen. Discharge Date/Time: 04/01/21 15:38
[2021-04-01 14:17] LABS: RAPID STREP SCREEN Negative (Negative)
[2021-04-01 14:52] LABS: B. PARAPERTUSSIS- RESP PCR PAN NOT DETECTED; B. PERTUSSIS- RESP PCR PANEL NOT DETECTED; C. PNEUMONIAE- RESP PCR PANEL NOT DETECTED; CORONAVIRUS 229E-RESP PCR NOT DETECTED; CORONAVIRUS HKU1-RESP PCR NOT DETECTED; CORONAVIRUS NL63-RESP PCR NOT DETECTED; CORONAVIRUS OC43-RESP PCR NOT DETECTED; HUMAN METAPNEUMOVIRUS NOT DETECTED; INFLUENZA A- RESP PCR PANEL NOT DETECTED; INFLUENZA B - RESP PCR PANEL NOT DETECTED; M. PNEUMONIAE- RESP PCR PANEL NOT DETECTED; PARAINFLUENZA VIRUS 1 NOT DETECTED; PARAINFLUENZA VIRUS 2 NOT DETECTED; PARAINFLUENZA VIRUS 3 NOT DETECTED; PARAINFLUENZA VIRUS 4 NOT DETECTED; RHINOVIRUS/ENTEROVIRUS NOT DETECTED; RSV- RESP PCR PANEL NOT DETECTED; SARS-CoV-2 -RESP PCR PANEL NOT DETECTED
[2021-04-01] MEDS ORDERED: DEXAMETHASONE 10 MG/ML VIAL PO STA (14:58)
[2021-04-01] MEDS ORDERED: CHERRY SYRUP 10 ML UDC PO ONE (14:58)
[2021-04-01] MEDS ORDERED: LORazepam 1 MG TABLET PO STA (15:20)
[2021-04-01 15:37] VITALS: BP 118/83
--- NOTE | 2021-04-03 16:18 | ED Physician Documentation ---
ED Addendum - Addendum Addendum: 04/03/21 16:16 Throat culture came back positive for beta-hemolytic group a strep. Penicillin VK, 500 mg 4 times daily x10 days was sent to [facility] in [place]. She also requested Diflucan for a yeast infection. Departure - Departure Disposition: 01 Home, Self Care Clinical Impression: Viral syndrome Condition: Good Instructions: ED Viral Syndrome Follow-Up: Price Urbina DO [Primary Care Provider] - Within 1 week Prescriptions: Penicillin V Potassium 500 mg PO Q6HR #40 tablet Fluconazole [Diflucan] 1 tablet PO ONCE 1 Days #1 tablet Comments: Drink plenty of fluids and rest. Return if you worsen. Discharge Date/Time: 04/01/21 15:38
== END 2021-04-01 15:38 | disposition home or self-care (01) ==
LOC: ED 12:48
DX: J02.0 Streptococcal pharyngitis (principal); B34.9 Viral infection, unspecified; B37.9 Candidiasis, unspecified; Z20.822 Contact with and (suspected) exposure to COVID-19; J45.909 Unspecified asthma, uncomplicated; F17.200 Nicotine dependence, unspecified, uncomplicated; I10 Essential (primary) hypertension
CPT/HCPCS: 0202U; 87070; 87430; 99283; 99284; A9270; J8499

== ENCOUNTER 2022-02-22 12:19 | Emergency (ER) | payer MEDICAID ==
[2022-02-22 12:45] LABS: BASOPHILS % (AUTO) 0.1 %; EOSINOPHILS % (AUTO) 0.1 %; HCT - HEMATOCRIT 42.9 % (37.0-47.0); HGB - HEMOGLOBIN 13.8 g/dL (12.0-16.0); LYMPHOCYTES # (AUTO) 2.6 10^3/uL (1.5-3.5); LYMPHOCYTES % (AUTO) 38.1 %; MEAN CORPUSCULAR HEMOGLOBIN 28.9 pg (27.0-31.0); MEAN CORPUSCULAR HGB CONC 32.2 g/dL (32.0-36.0); MEAN CORPUSCULAR VOLUME 89.9 fL (81.0-99.0); MEAN PLATELET VOLUME 8.7 fL (7.9-10.8); MONOCYTES # (AUTO) 0.5 10^3/uL (0.0-1.0); MONOCYTES % (AUTO) 7.8 %; NEUTROPHILS # (AUTO) 3.7 10^3/uL (1.5-6.6); NEUTROPHILS % (AUTO) 53.6 %; PLT - PLATELET COUNT 438 10^3/uL (130-450); RED BLOOD COUNT 4.77 10^6/uL (4.20-5.40); RED CELL DISTRIBUTION WIDTH 13.2 % (12.0-15.0); WHITE BLOOD COUNT 6.8 x10^3/uL (4.8-10.8)
--- NOTE | 2022-02-22 12:47 | ED Physician Documentation ---
PD HPI CHEST PAIN - Stated complaint Stated Complaint: CHEST PX - Chief complaint Chief Complaint: Cardiac - History obtained from History obtained from: Patient - History of Present Illness Timing - details: Gradual onset Pain level max: 5 Pain level now: 5 Quality: Sharp Location: Substernal Radiation: No: Jaw, Neck, Back, Abdominal, Left upper extremity, Right upper extremity Worsened by: Movement, Palpation Associated symptoms: Feeling faint / dizzy, General Weakness. No: Shortness of air, Diaphoresis, Nausea, Vomiting, Palpitations - Additional information Additional information: Patient is a 52-year-old female who presents to the emergency department with chest pain. This been ongoing for the past 2 to 3 days, constant since yesterday. Seems to be worse with palpation and movement, nothing seems to make it better. Described as sharp. Nonradiating. Does have a history of anxiety. She states this could feel like her anxiety she is unsure No recent travel. No recent surgery. No calf tenderness. 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 HEENT: Macular degeneration Psych: Depression, Anxiety, Post traumatic stress disorder Musculoskeletal: Osteoarthritis, Fibromyalgia, Osteoporosis Derm: None - Past Surgical History Past Surgical History: Yes General: Cholecystectomy Ortho: Carpal Tunnel surgery /PIN MAKER: Hysterectomy, Oophrectomy, Mastectomy HEENT: Tonsil/Adenoidectomy - Present Medications Home Medications: Ambulatory Orders Medication Instructions Recorded Confirmed Albuterol Sulfate [Proair Hfa 2 puffs INH Q4H PRN 07/14/15 04/10/21 Inhaler] EPINEPHrine [Epinephrine] 0.3 mg IM ONCE PRN 07/14/15 04/10/21 Gabapentin 900 mg PO BID 07/14/15 04/10/21 Oxybutynin [Ditropan] 5 mg PO BID 07/14/15 04/10/21 Venlafaxine HCl [Effexor Xr] 150 mg PO DAILY 07/14/15 04/10/21 ondansetron HCL [Ondansetron HCl] 4 mg PO QPM PRN 04/30/16 04/10/21 Denosumab [Prolia] 60 mg [id number] 05/16/17 04/10/21 Butalb/Acetaminophen/Caffeine 1 - 2 cap PO Q4H PRN MDD 6 caps 01/23/19 04/10/21 [Fioricet 50-300-40 mg Capsule] Calcium Carbonate/Vitamin D3 2 tab PO DAILY 01/23/19 04/10/21 [Calcium 500-Vit D3 200 Tablet] Lansoprazole 15 mg PO DAILY 01/23/19 04/10/21 Potassium Chloride 20 meq PO DAILY 01/23/19 04/10/21 Spironolactone 75 mg PO DAILY 01/23/19 04/10/21 lamoTRIgine [Lamictal] 200 mg PO QPM 01/23/19 04/10/21 lisinopriL [Lisinopril] 10 mg PO QPM 01/23/19 04/10/21 Dextroamphetamine/Amphetamine 30 mg PO DAILY 12/13/19 04/10/21 [Adderall Xr 30 mg Capsule] Prazosin HCl 2 mg PO QPM PRN 12/13/19 04/10/21 Docusate Sodium 250Mg Capsule 250 - 500 mg PO DAILY PRN #10 12/20/19 04/10/21 [Colace 250Mg Capsule] capsule Levothyroxine [Synthroid] 100 mcg PO QDAC #15 tablet 12/20/19 04/10/21 predniSONE [Deltasone] 20 mg PO DAILYWM #10 tablet 12/20/19 04/10/21 LORazepam [Ativan] 1 mg PO TID PRN #10 tablet 06/23/20 04/10/21 Fluconazole [Diflucan] 1 tablet PO ONCE 1 Days #1 tablet 04/03/21 04/10/21 Penicillin V Potassium 500 mg PO Q6HR #40 tablet 04/03/21 04/10/21 hydrOXYzine HCL [Hydroxyzine HCl] 25 mg PO Q6HR #20 tablet 11/20/21 predniSONE [Deltasone] 40 mg PO DAILY 4 Days #8 tablet 11/20/21 - Allergies Allergies/Adverse Reactions: Allergies Allergy/AdvReac Type Severity Reaction Status Date / Time prochlorperazine edisylate * Allergy Severe Hallucinati Verified 11/20/21 05:11 [From Compazine] ons prochlorperazine maleate * Allergy Severe Hallucinati Verified 02/22/22 12:31 [From Compazine] ons Sulfa (Sulfonamide Allergy Severe Hives Verified 02/22/22 12:31 Antibiotics) tetracycline [Tetracycline] Allergy Severe Blisters Verified 02/22/22 12:31 bee venom protein (honey bee) Allergy Anaphylaxis Verified 02/22/22 12:31 cefuroxime [From Ceftin] Allergy Unknown Verified 02/22/22 12:31 ketorolac [From Toradol] Allergy Unknown Verified 02/22/22 12:31 midazolam [From Versed] Allergy Unknown Verified 02/22/22 12:31 nortriptyline Allergy Unknown Verified 02/22/22 12:31 sumatriptan [From Imitrex] AdvReac Severe Chest Verified 02/22/22 12:31 Pain/Anxiety sumatriptan succinate * AdvReac Severe Chest Verified 11/20/21 05:11 [From Imitrex] Pain/Anxiety latex AdvReac Itching Verified 11/20/21 05:11 - Social History Does the pt smoke?: Yes Smoking Status: Current every day smoker Does the pt drink ETOH?: Yes Does the pt have substance abuse?: Yes - Immunizations Immunizations are current?: Yes - POLST Patient has POLST: No PD ED PE NORMAL - Vitals Vital signs reviewed: Yes - General General: Alert and oriented X 3, No acute distress - HEENT HEENT: Moist mucous membranes - Neck Neck: Supple, no meningeal sign - Cardiac Cardiac: RRR, No murmur, Strong equal pulses, Other (Tender to palpation across the anterior chest wall. Reproduces her pain.) - Respiratory Respiratory: No respiratory distress, Clear bilaterally - Abdomen Abdomen: Soft, Non tender, Non distended - Back Back: No spinal TTP - Derm Derm: Warm and dry - Extremities Extremities: No edema, No calf tenderness / cord - Neuro Neuro: Alert and oriented X 3 - Psych Psych: Normal mood, Normal affect Results - Vitals Vitals: Vital Signs - 24 hr 02/22/22 02/22/22 02/22/22 12:25 12:32 13:00 Temperature 36.0 C L Heart Rate 61 53 L Respiratory 20 16 Rate Blood Pressure 199/96 H 152/102 H Blood Pressure 162/106 H [Right] O2 Saturation 100 100 Oxygen O2 Source Room air - EKG (time done) 1223 Rate: Rate (enter#) (53) Rhythm: NSR [facility]: Normal Intervals: Normal [place] QRS: Normal Ischemia: Normal ST segments - Labs Labs: Laboratory Tests 02/22/22 02/22/22 02/22/22 12:40 12:40 12:40 WBC 6.8 RBC 4.77 Hgb 13.8 Hct 42.9 MCV 89.9 MCH 28.9 MCHC 32.2 RDW 13.2 Plt Count 438 MPV 8.7 Neut # (Auto) 3.7 Lymph # (Auto) 2.6 Bibb # (Auto) 0.5 Eos # (Auto) 0.0 Baso # (Auto) 0.0 Absolute Nucleated RBC 0.00 Nucleated RBC % 0.0 Sodium 139 Potassium 3.7 Chloride 103 Carbon Dioxide 30 Anion Gap 6.0 BUN 15 Creatinine 0.7 Estimated GFR (MDRD) 86 L Glucose 109 H Calcium 9.8 Total Bilirubin 0.4 AST 19 ALT 17 Alkaline Phosphatase 68 Troponin I High Sens 3.3 Total Protein 8.2 Albumin 4.3 Globulin 3.9 Albumin/Globulin Ratio 1.1 Lipase 45 - Rads (name of study) Chest x-ray Radiology: Final report received, EMP read contemporaneously, See rad report (No acute abnormality) PD MEDICAL DECISION MAKING - ED course Complexity details: reviewed results, re-evaluated patient, considered differential (No ST elevation PA, no aortic dissection, no PE, no tension pneumothorax, no aortic aneurysm), d/w patient ED course: Patient is well-appearing, nontoxic. Afebrile. No acute findings on EKG, chest x-ray or laboratory testing. Negative troponin after greater than 24 hours of symptoms. Pain is reproducible with palpation of the costochondral cartilage in the anterior aspect of the chest wall. We will continue supportive care, treat as costochondritis and have her follow-up with her doctor for further care. Patient counseled regarding signs and symptoms for which I believe and urgent re-evaluation would be necessary. Patient with good understanding of and agreement to plan and is comfortable going home at this time This document was made in part using voice recognition software. While efforts are made to proofread this document, sound alike and grammatical errors may occur. Departure - Departure Disposition: Home, Self Care Clinical Impression: Chest pain Qualifiers: Chest pain type: unspecified Qualified Code(s): R07.9 - Chest pain, unspecified Condition: Good Instructions: ED Chest Pain NonCardiac, ED Chest Pain Costochondritis Follow-Up: your,doctor in 1 week [Other] Comments: Please follow-up with your doctor for further care. Your EKG, chest x-ray and laboratory testing did not show any acute abnormality today. You are tender on your costochondral cartilage and this could be due to costochondritis. Please return if you worsen.
[2022-02-22 13:00] LABS: ALBUMIN 4.3 g/dL (3.2-5.5); ALBUMIN/GLOBULIN RATIO 1.1 (1.0-2.2); BILIRUBIN,TOTAL 0.4 mg/dL (0.2-1.0); CALCIUM 9.8 mg/dL (8.5-10.3); CREATININE 0.7 mg/dL (0.4-1.0); POTASSIUM 3.7 mmol/L (3.5-5.0); TOTAL PROTEIN 8.2 g/dL (6.7-8.2)
--- NOTE | 2022-02-22 13:10 | XRAY Report ---
PROCEDURE: Chest 1 View X-Ray INDICATIONS: Chest Pain TECHNIQUE: One view of the chest was acquired. COMPARISON: CT chest 06/03/2019 FINDINGS: Surgical changes and devices: Surgical clips are seen projecting over the chest. Lungs and pleura: No pleural effusions or pneumothorax. Lungs are clear. Mediastinum: Mediastinal contours appear normal. Heart size is normal. Bones and chest wall: No suspicious bony lesions. Overlying soft tissues appear unremarkable. IMPRESSION: No acute cardiopulmonary abnormality. Reviewed by: Christopher Ceballos MD on 02/22/2022 12:09 PM [place] Approved by: Christopher Ceballos MD on 02/22/2022 12:09 PM [place] Station ID: [id number]
[2022-02-22 14:01] VITALS: BP 160/118
== END 2022-02-22 14:05 | disposition home or self-care (01) ==
LOC: ED 12:19
DX: R07.9 Chest pain, unspecified (principal); F17.200 Nicotine dependence, unspecified, uncomplicated
CPT/HCPCS: 36415; 80053; 83690; 84484; 85025; 93005; 99284

== ENCOUNTER 2022-03-01 08:00 | Outpatient (CLI) | payer MEDICAID ==
[2022-03-01 12:38] LABS: BILIRUBIN,URINE NEGATIVE (NEGATIVE); GLUCOSE, URINE (UA) NEGATIVE (NEGATIVE); KETONES,URINE (UA) NEGATIVE (NEGATIVE); LEUKOCYTE ESTERASE, URINE NEGATIVE (NEGATIVE); NITRITE,URINE POSITIVE (NEGATIVE); OCCULT BLOOD,URINE NEGATIVE (NEGATIVE); PH,URINE 5.5 PH (5.0-7.5); PROTEIN,URINE NEGATIVE (NEGATIVE); UROBILINOGEN,URINE 0.2 (NORMAL) E.U./dL (NORMAL)
[2022-03-01 12:42] LABS: CLARITY,URINE CLEAR (CLEAR)
[2022-03-01 13:28] LABS: BACTERIA,URINE Moderate /HPF (None Seen); RBC,URINE None Seen /HPF (0-5); SQUAMOUS EPITHELIAL CELL,UR RARE Squamous (<= Few); WBC,URINE 0-3 /HPF (0-5)
== END 2022-03-01 23:59 | disposition home or self-care (01) ==
LOC: LAB.N 08:00
PROVIDERS: ATTEND Physician Assistant
DX: R30.0 Dysuria (principal)
CPT/HCPCS: 81001; 87086; 87181

== ENCOUNTER 2022-03-04 08:07 | Outpatient (CLI) | payer MEDICAID ==
[2022-03-04 08:34] LABS: BASOPHILS % (AUTO) 0.2 %; HCT - HEMATOCRIT 38.1 % (37.0-47.0); HGB - HEMOGLOBIN 12.3 g/dL (12.0-16.0); LYMPHOCYTES # (AUTO) 2.1 10^3/uL (1.5-3.5); LYMPHOCYTES % (AUTO) 39.6 %; MEAN CORPUSCULAR HEMOGLOBIN 28.9 pg (27.0-31.0); MEAN CORPUSCULAR HGB CONC 32.3 g/dL (32.0-36.0); MEAN CORPUSCULAR VOLUME 89.6 fL (81.0-99.0); MEAN PLATELET VOLUME 8.9 fL (7.9-10.8); MONOCYTES # (AUTO) 0.4 10^3/uL (0.0-1.0); MONOCYTES % (AUTO) 7.7 %; NEUTROPHILS # (AUTO) 2.8 10^3/uL (1.5-6.6); NEUTROPHILS % (AUTO) 52.5 %; PLT - PLATELET COUNT 328 10^3/uL (130-450); RED BLOOD COUNT 4.25 10^6/uL (4.20-5.40); RED CELL DISTRIBUTION WIDTH 13.4 % (12.0-15.0); WHITE BLOOD COUNT 5.3 x10^3/uL (4.8-10.8)
[2022-03-04 08:51] LABS: % IRON SATURATION 12 % (20-50); ALBUMIN 3.8 g/dL (3.2-5.5); ALBUMIN/GLOBULIN RATIO 1.3 (1.0-2.2); ALKALINE PHOSPHATASE 61 IU/L (42-121); ALT ALANINE AMINOTRANSFERASE 14 IU/L (10-60); AST ASPARTATE AMINOTRANSFERASE 16 IU/L (10-42); BILIRUBIN,TOTAL 0.5 mg/dL (0.2-1.0); BUN - BLOOD UREA NITROGEN 20 mg/dL (6-20); CALCIUM 9.2 mg/dL (8.5-10.3); CARBON DIOXIDE - CO2 32 mmol/L (21-32); CHLORIDE 103 mmol/L (101-111); CHOL/HDL RATIO 3.8 (<4.4); CHOLESTEROL 173 mg/dL; CREATININE 1.1 mg/dL (0.4-1.0); GFR - MDRD 51 (>89); GLUCOSE 111 mg/dL (70-100); HDL CHOLESTEROL 46 mg/dL; IRON 48 ug/dL (28-170); LDL CHOLESTEROL,CALCULATED 106 mg/dL; LDL/HDL RATIO 2.3 (<4.4); POTASSIUM 4.4 mmol/L (3.5-5.0); SODIUM 140 mmol/L (135-145); TOTAL IRON BINDING CAPACITY 395 ug/dL (250-450); TOTAL PROTEIN 6.8 g/dL (6.7-8.2); TRANSFERRIN 282 mg/dL (192-382); TRIGLYCERIDES 105 mg/dL; VLDL CHOLESTEROL 21 mg/dL
[2022-03-04 09:03] LABS: THYROID STIMULATING HORMONE 0.96 uIU/mL (0.34-5.60)
[2022-03-04 09:05] LABS: CRP - C-REACTIVE PROTEIN < 1.0 mg/dL (0-1.0); FREE T3 3.14 pg/mL (2.5-3.9); FREE T4 (FREE THYROXINE) 0.72 ng/dL (0.58-1.64)
[2022-03-04 09:08] LABS: FERRITIN 9.5 ng/mL (11.0-306.8)
[2022-03-04 09:45] LABS: BILIRUBIN,URINE NEGATIVE (NEGATIVE); GLUCOSE, URINE (UA) NEGATIVE (NEGATIVE); KETONES,URINE (UA) TRACE mg/dL (NEGATIVE); LEUKOCYTE ESTERASE, URINE NEGATIVE (NEGATIVE); NITRITE,URINE NEGATIVE (NEGATIVE); OCCULT BLOOD,URINE NEGATIVE (NEGATIVE); PH,URINE 5.5 PH (5.0-7.5); PROTEIN,URINE NEGATIVE (NEGATIVE); UROBILINOGEN,URINE 0.2 (NORMAL) E.U./dL (NORMAL)
[2022-03-04 09:46] LABS: CLARITY,URINE CLEAR (CLEAR)
[2022-03-04 10:28] LABS: BACTERIA,URINE Few /HPF (None Seen); RBC,URINE 0-5 /HPF (0-5); SQUAMOUS EPITHELIAL CELL,UR FEW Squamous (<= Few); WBC CLUMPS,URINE PRESENT
== END 2022-03-04 08:08 | disposition home or self-care (01) ==
LOC: LAB 08:07
PROVIDERS: ATTEND Physician Assistant
DX: E78.5 Hyperlipidemia, unspecified (principal); Z51.81 Encounter for therapeutic drug level monitoring; R30.0 Dysuria; E61.1 Iron deficiency; R00.2 Palpitations; E03.9 Hypothyroidism, unspecified; D64.9 Anemia, unspecified
CPT/HCPCS: 36415; 80053; 80061; 81001; 82728; 83540; 83721; 84439; 84443; 84466; 84481; 85025; 86140; 87086

== ENCOUNTER 2022-04-30 18:18 | Outpatient (CLI) | payer MEDICAID ==
[2022-04-30 18:48] LABS: ALBUMIN 4.2 g/dL (3.2-5.5); BILIRUBIN,TOTAL 0.3 mg/dL (0.2-1.0); CALCIUM 9.7 mg/dL (8.5-10.3); CREATININE 0.9 mg/dL (0.4-1.0); POTASSIUM 3.9 mmol/L (3.5-5.0); TOTAL PROTEIN 8.3 g/dL (6.7-8.2)
== END 2022-04-30 18:19 | disposition home or self-care (01) ==
LOC: LAB 18:18
PROVIDERS: ATTEND Physician Assistant
DX: R79.89 Other specified abnormal findings of blood chemistry (principal)
CPT/HCPCS: 36415; 80053

== ENCOUNTER 2022-05-03 09:02 | Outpatient (CLI) | payer MEDICAID ==
[2022-05-03 09:22] VITALS: BP 161/96
--- NOTE | 2022-05-03 09:42 | ONCOLOGY/HEMATOLOGY VISIT ---
HEME/ONC PROGRESS NOTE: cc: ELLY León (PCP) ONCOLOGY HISTORY: 1. Anemia of iron deficiency. A. History of Crohn's disease. B. Resolved with iron supplementation 2. History of stage I right breast cancer T1b and 08/2011. ER positive. Oncotype DX 7 A. Bilateral mastectomy followed by reconstruction B. Tamoxifen x3 years completed 10/2014. C. Anastrozole/Aromasin subsequently until 11/2016. 3. History of sleep apnea, on CPAP. 4. Osteoporosis. Calcium with vitamin D supplement. a. Prolia 7x3 doses. Declined further treatment. 5. Multinodule or goiter with Carrie's thyroiditis. 6. Lymphedema, status post therapy. Negative CT neck, chest, ultrasound. ASSESSMENT/PLAN: 1. Surveillance due to history of stage 1 breast cancer dx 2011 2. Left posterior neck node, approx 2cm -There is no clear evidence of cancer recurrence or metastasis though multiple ongoing signs/symptoms to evaluate as below. -S/p bilateral mastectomy/breast reconstruction with aromatase inhibitor therapy until 11/2016. We discussed her wide-ranging symptoms of fatigue, anxiety, nausea coupled with nodule to her left posterior neck x months. I encouraged her to continue work-up with her primary care provider. 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 Encouraged to consider starting with a neck ultrasound though she understands neck CT is preferred. At this point the stress of not evaluating the neck node is likely affecting overall stress/health and she will consider the US. -Followup in 6 months. 3. Bone health: As she has been off aromatase inhibitor therapy for many years now, discussed future DEXA scans to be ordered per PCP. 4. Naturopathy: Referral placed [facility] naturopathic oncologist Roby to focus on wellness lifestyle including anxiety management for reducing risk of cancer recurrence. 5. Palpitations/chostocondritis: Noncardiac chest pain per ED eval 02/2022. ECG/CXR neg. -Continue workup with PCP. -Pending environmental monitoring specialist. 6. Dry mouth: Encouraged over the counter measures. She is reassured labs do not indicate dehydration as the source. HISTORY OF CURRENT ILLNESS/REVIEW OF SYSTEMS: In the interim had additional chest pain and visited ED February this year. Findings were consistent with costochondritis. Continues having intermittent palpitations. Significant anxiety noted. Continues tired and feeling achy all over. Notes dry mouth and feels she may be dehydrated though we noted BUN and creatinine do not show evidence. She is working with her primary care provider on multiple symptoms. Also has a new palpable nodes to the left side of her neck for which her primary care is recommended CT scan. She is very concerned of CT scans causing cancer due to to Turcot syndrome and wants to avoid. She does note that she is quite stressed about this node with declining evaluation however. Denies visual changes or daily headache. Denies focal bone pain. Noting significant other of cancer 2020 SOCIAL HISTORY: Significant other of cancer 2020. PHYSICAL EXAM: Constitiutional: Pleasant, engaging woman. Appears mildly anxious, not in significant distress. HEENT: Left posterior neck 2cm nonmobile palpable node. Chest/axilla: There is no palpable axillary or supraclavicular lymphadenopathy bilaterally. There is no mass to the chest wall as palpable above and lateral to her breast reconstruction. There is no appearance of lymphedema to the upper extremity bilaterally. Patient Follow Up Questionnaire: Hematology/Oncology Follow Up Questionnaire MAC Follow Up Questionnaire Start: 05/03/22 09:21 Freq: Status: Active Protocol: Document 05/03/22 09:22 AO (Rec: 05/03/22 09:22 AO [id number]) Oncology/Hematology Follow Up Questionnaire Patient Questionnaire Are you in pain Yes Pain Location neck Pain Scale 2 Neurological/Muscular/Joints Muscle ache ENT/Vision Mouth sores Gastrointestinal Nausea,Diarrhea,Constipation Constitutional Increased fatigue Any Medication Changes No Refills Needed No Clinical Data: Vital Signs Temp Pulse Resp BP Pulse Ox O2 Flow Rate 36.8 C 68 16 161/96 H 98 05/03/22 09:19 05/03/22 09:19 05/03/22 09:19 05/03/22 09:19 05/03/22 09:19
== END 2022-05-03 09:03 | disposition home or self-care (01) ==
LOC: MAC.MOP 09:02
PROVIDERS: ATTEND Physician Assistant
DX: Z53.9 Procedure and treatment not carried out, unspecified reason (principal)

== ENCOUNTER 2022-07-15 10:29 | Outpatient (CLI) | payer MEDICAID ==
[2022-07-15 10:44] LABS: BASOPHILS % (AUTO) 0.3 %; HCT - HEMATOCRIT 42.2 % (37.0-47.0); HGB - HEMOGLOBIN 13.7 g/dL (12.0-16.0); LYMPHOCYTES # (AUTO) 2.4 10^3/uL (1.5-3.5); MEAN CORPUSCULAR HEMOGLOBIN 28.9 pg (27.0-31.0); MEAN CORPUSCULAR HGB CONC 32.5 g/dL (32.0-36.0); MEAN PLATELET VOLUME 8.4 fL (7.9-10.8); MONOCYTES # (AUTO) 0.5 10^3/uL (0.0-1.0); MONOCYTES % (AUTO) 7.2 %; NEUTROPHILS # (AUTO) 4.5 10^3/uL (1.5-6.6); NEUTROPHILS % (AUTO) 60.2 %; PLT - PLATELET COUNT 450 10^3/uL (130-450); RED BLOOD COUNT 4.74 10^6/uL (4.20-5.40); RED CELL DISTRIBUTION WIDTH 12.8 % (12.0-15.0); WHITE BLOOD COUNT 7.5 x10^3/uL (4.8-10.8)
[2022-07-15 10:59] LABS: ALBUMIN 4.2 g/dL (3.2-5.5); ALBUMIN/GLOBULIN RATIO 1.1 (1.0-2.2); BILIRUBIN,TOTAL 0.3 mg/dL (0.2-1.0); CALCIUM 9.3 mg/dL (8.5-10.3); CREATININE 0.9 mg/dL (0.4-1.0); POTASSIUM 4.2 mmol/L (3.5-5.0); TOTAL PROTEIN 8.2 g/dL (6.7-8.2)
[2022-07-15] MEDS ORDERED: iohexoL-300 100 ML VIAL ONE (11:01)
--- NOTE | 2022-07-15 15:31 | CT Report ---
PROCEDURE: SOFT TISSUE NECK W INDICATIONS: NECK MASS CONTRAST: 100ml Omnipaque 300 TECHNIQUE: After the administration of intravenous contrast, 3.0 mm axial sections acquired from the sella to th e aortic arch. Additional oblique axial 3.0 mm sections acquired through the pharynx. 3 mm thick co siobhan reformats were generated. For radiation dose reduction, the following was used: automated exp osure control, adjustment of mA and/or kV according to patient size. COMPARISON: 05/20/2022 ultrasound FINDINGS: Metallic BB marker was placed by the process safety engineering technologist at the reported area of palpable concern on seri es 3 image 54. There is no mass or fluid collection subjacent to this marker. Slightly anteriorly adj acent there are a few slightly asymmetrically prominent but not threshold enlarged or overtly suspici ous appearing posterior cervical chain lymph nodes (for example series 3 images 45-50 measuring up to 5 mm short axis diameter). Normal appearance of the parotid and some mandibular glands. Thyroid glan d attenuation is uniform. No suspicious lytic or blastic osseous lesion. Included portions of the skye g apices are clear. Vascular structures enhance normally. IMPRESSION: No mass or fluid collection seen at the area of palpable concern in the left posterolateral neck. A f ew centimeters away there are a few minimally prominent but not threshold enlarged posterior cervical chain lymph nodes. These are of doubtful and are likely normal, however follow-up study in 6-8 weeks is recommended to document stability. Reviewed by: Gurpreet Nation MD on 07/15/2022 3:30 PM PST Approved by: Gurpreet Nation MD on 07/15/2022 3:30 PM PST Station ID: [id number]
[2022-07-15] MEDS ORDERED: iohexoL-300 100 ML VIAL IVP ONE (16:22)
== END 2022-07-15 10:30 | disposition home or self-care (01) ==
LOC: LAB 10:29
PROVIDERS: ATTEND Physician Assistant
DX: R22.1 Localized swelling, mass and lump, neck (principal); R94.4 Abnormal results of kidney function studies; Z85.3 Personal history of malignant neoplasm of breast
CPT/HCPCS: 36415; 70491; 80053; Q9967; 85025

== ENCOUNTER 2022-08-04 16:08 | Outpatient (CLI) | payer MEDICAID ==
[2022-08-04] MEDS ORDERED: GADOBUTROL 7.5 MMOL/7.5 ML VIAL ONE (16:17)
[2022-08-04] MEDS ORDERED: GADOBUTROL 7.5 MMOL/7.5 ML VIAL IVP ONE (16:37)
--- NOTE | 2022-08-04 18:45 | MRI Report ---
PROCEDURE: MRI brain with and without contrast INDICATIONS: HEADACHE, TIA CONTRAST: gadavist 6.6ml TECHNIQUE: Noncontrast axial T1 spin echo, axial T2 fast spin echo, sagittal and axial FLAIR, coronal T2 fast sp in echo, axial gradient echo, axial diffusion and ADC through the brain. After the administration of contrast, axial and coronal T1 spin echo with fat saturation through the brain. COMPARISON: None. FINDINGS: Image quality: Excellent. CSF spaces: Basal cisterns are patent. No extra-axial fluid collections. Ventricles are normal in size and shape. Brain: No midline shift. No intracranial bleeds or masses. No abnormal intracranial enhancement. There is cerebral volume loss for age. There is periventricular white matter chronic small vessel is chemic change. The brainstem appears normal. Diffusion-weighted images demonstrate no acute ischemi c insults. No chronic ischemic insults. Normal intravascular flow voids are present. Skull and face: Calvarial marrow is normal in signal. Orbits appear normal. Sinuses: Sinuses and mastoids appear clear. IMPRESSION: Normal MRI of the brain Reviewed by: Yoshi Howell MD on 08/04/2022 5:44 PM [place] Approved by: Yoshi Howell MD on 08/04/2022 5:44 PM [facility] Station ID: [id number]
== END 2022-08-04 16:09 | disposition home or self-care (01) ==
LOC: DI 16:08
PROVIDERS: ATTEND Physician Assistant
DX: R51.9 Headache, unspecified (principal)
CPT/HCPCS: 70553; A9585

== ENCOUNTER 2022-08-06 11:47 | Outpatient (CLI) | payer MEDICAID ==
--- NOTE | 2022-08-06 13:50 | Ultrasound Report ---
PROCEDURE: Carotid Doppler Complete INDICATIONS: HEADACHE, TIA TECHNIQUE: Color and pulse Doppler interrogation was performed of both carotid systems, with image documentation and velocity measurements. COMPARISON: None. FINDINGS: Right side: Brachial blood pressure: 139/77 mm Hg. Common carotid artery peak systolic velocity: 75 cm/sec. Internal carotid artery peak systolic velocity: 78 cm/sec. Internal carotid artery end diastolic velocity: 26 cm/sec. External carotid artery peak systolic velocity: 94 cm/sec. ICA/CCA peak systolic ratio: 1 . Puckett scale imaging description: No plaque Percent internal carotid artery stenosis: None . Vertebral artery: Flow direction is antegrade. Left side: Brachial blood pressure: 133/75 mm Hg. Common carotid artery peak systolic velocity: 86 cm/sec. Internal carotid artery peak systolic velocity: 74 cm/sec. Internal carotid artery end diastolic velocity: 28 cm/sec. External carotid artery peak systolic velocity: 74 cm/sec. ICA/CCA peak systolic ratio: 0.9 . Puckett scale imaging description: No plaque within the internal carotid artery. Trace calcified plaque within the bulb. Percent internal carotid artery stenosis: None . Vertebral artery: Flow direction is antegrade. IMPRESSION: 1. No hemodynamically significant stenosis or internal carotid artery plaque. The estimate of stenosis included in the report of the imaging study was calculated using the NASCET method Reviewed by: Josiah Levine on 08/06/2022 1:49 PM PST Approved by: Josiah Levine on 08/06/2022 1:49 PM PST Station ID: [id number]
== END 2022-08-06 11:48 | disposition home or self-care (01) ==
LOC: DI 11:47
PROVIDERS: ATTEND Physician Assistant
DX: G45.9 Transient cerebral ischemic attack, unspecified (principal)
CPT/HCPCS: 93880

== ENCOUNTER 2022-10-14 09:10 | Outpatient (CLI) | payer MEDICAID | END 2022-10-14 23:59 | disposition critical access hospital (66) | LOC: EMS 09:10 | DX: R41.0 Disorientation, unspecified (principal); H53.9 Unspecified visual disturbance; R11.0 Nausea; I10 Essential (primary) hypertension | CPT/HCPCS: A0425; A0429; A0999 ==

== ENCOUNTER 2022-10-14 09:21 | Emergency (ER) | payer MEDICAID ==
--- NOTE | 2022-10-14 09:31 | ED Physician Documentation ---
PD HPI ALTERED MENTAL STATUS - Stated complaint Stated Complaint: CONFUSION - History obtained from History obtained from: Patient, EMS - History of Present Illness Timing - onset: How many hours ago (2 or more. She states she awoke and had fe eling of vertigo with rolling/sitting up, blurred vision bilaterally, and feeling of confusion for events/ place (even though was in her own bedroom), and developing some headache to left.) Timing - duration: Hours (2) Timing - details: Abrupt onset, Still present (it is improved re: degree of positional vertigo and nausea with it. blurred vision is somewhat improving. Left headache increasing slowly.) Quality / character: Confused Associated symptoms: Headache. No: Fever, Stiff neck, Dyspnea, Cough Contributing factors: Recent med change (she discontinued venlafexine 4 days ago, but hadonly been on it for 2 weeks by her back specialist, to help with nerve pain.) Basline status: Alert and oriented X 3, Ambulatory Similar symptoms before: Has not had sx before (she has had migraines in the past with visual blurring, left arm numbness, but had not had vertigo with HERNANDEZ before. Did have an episode of vertigo similar to this 2 months ago lasted part of day. Outpt MRI and labs and she says was diagnosed with small CVA.) Review of Systems Constitutional: denies: Fever, Chills Eyes: reports: Decreased vision, Photophobia. denies: Loss of vision, Discharge Nose: reports: Rhinorrhea / runny nose, Congestion Cardiac: denies: Chest pain / pressure Respiratory: denies: Dyspnea, Cough GI: reports: Nausea. denies: Vomiting, Diarrhea Skin: denies: Rash, Lesions Neurologic: reports: Headache, Other (vertigo). 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 HEENT: Macular degeneration Psych: Depression, Anxiety, Post traumatic stress disorder Musculoskeletal: Osteoarthritis, Fibromyalgia, Osteoporosis Derm: None - Past Surgical History Past Surgical History: Yes General: Cholecystectomy Ortho: Carpal Tunnel surgery /MEMBERSHIP SALES MANAGER: Hysterectomy, Oophrectomy, Mastectomy HEENT: Tonsil/Adenoidectomy - Present Medications Home Medications: Ambulatory Orders Medication Instructions Recorded Confirmed Albuterol Sulfate [Proair Hfa 2 puffs INH Q4H PRN 07/14/15 09/14/22 Inhaler] EPINEPHrine [Epinephrine] 0.3 mg IM ONCE PRN 07/14/15 09/14/22 Gabapentin 900 mg PO BID 07/14/15 05/24/22 Oxybutynin [Ditropan] 5 mg PO BID 07/14/15 05/24/22 Spironolactone 75 mg PO DAILY 01/23/19 05/24/22 lamoTRIgine [Lamictal] 200 mg PO QPM 01/23/19 09/14/22 lisinopriL [Lisinopril] 20 mg PO QPM 01/23/19 09/14/22 Prazosin HCl 2 mg PO QPM PRN 12/13/19 05/24/22 Levothyroxine [Synthroid] 100 mcg PO QDAC #15 tablet 12/20/19 05/24/22 LORazepam [Ativan] 1 mg PO TID PRN #10 tablet 06/23/20 05/24/22 Fluconazole [Diflucan] 1 tablet PO ONCE 1 Days #1 tablet 04/03/21 09/14/22 hydrOXYzine HCL [Hydroxyzine HCl] 25 mg PO Q6HR #20 tablet 11/20/21 05/24/22 Butalb/Acetam/Caff 50/325/40 1 each PO Q6H PRN #10 tablet 10/14/22 [Fioricet] Ondansetron Odt [Zofran] 4 mg TL Q6H PRN #10 tablet 10/14/22 - Allergies Allergies/Adverse Reactions: Allergies Allergy/AdvReac Type Severity Reaction Status Date / Time prochlorperazine edisylate * Allergy Severe Hallucinati Verified 11/20/21 05:11 [From Compazine] ons prochlorperazine maleate * Allergy Severe Hallucinati Verified 02/22/22 12:31 [From Compazine] ons Sulfa (Sulfonamide Allergy Severe Hives Verified 02/22/22 12:31 Antibiotics) tetracycline [Tetracycline] Allergy Severe Blisters Verified 02/22/22 12:31 bee venom protein (honey bee) Allergy Anaphylaxis Verified 02/22/22 12:31 cefuroxime [From Ceftin] Allergy Unknown Verified 09/05/22 12:31 ketorolac [From Toradol] Allergy Unknown Verified 02/22/22 12:31 midazolam [From Versed] Allergy Unknown Verified 02/22/22 12:31 nortriptyline Allergy Unknown Verified 02/22/22 12:31 sumatriptan [From Imitrex] AdvReac Severe Chest Verified 02/22/22 12:31 Pain/Anxiety sumatriptan succinate * AdvReac Severe Chest Verified 11/20/21 05:11 [From Imitrex] Pain/Anxiety latex AdvReac Itching Verified 11/20/21 05:11 metoclopramide [From Reglan] AdvReac Anxiety Verified 10/14/22 14:19 - Social History Does the pt smoke?: Yes Smoking Status: Current every day smoker Does the pt drink ETOH?: Yes Does the pt have substance abuse?: Yes - Immunizations Immunizations are current?: Yes - POLST Patient has POLST: No PD ED PE NORMAL - Vitals Vital signs reviewed: Yes - General General: Alert and oriented X 3, No acute distress, Well developed/nourished - HEENT HEENT: PERRL, EOMI, Other (fundi normal. Mild nystagmus with head movement. 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, No motor deficit, No sensory deficit, Normal speech Results - Vitals Vitals: Vital Signs - 24 hr 10/14/22 10/14/22 10/14/22 09:33 11:07 13:06 Temperature 37.1 C Heart Rate 96 75 67 Respiratory 18 15 12 Rate Blood Pressure 163/104 H 146/91 H 151/98 H O2 Saturation 100 99 98 10/14/22 15:05 Temperature Heart Rate 75 Respiratory 13 Rate Blood Pressure 135/94 H O2 Saturation 98 Oxygen O2 Source Room air - Labs Labs: Laboratory Tests 10/14/22 10/14/22 10/14/22 09:29 09:59 09:59 WBC 7.0 RBC 4.59 Hgb 13.2 Hct 40.7 MCV 88.7 MCH 28.8 MCHC 32.4 RDW 13.4 Plt Count 448 MPV 8.6 Neut # (Auto) 4.3 Lymph # (Auto) 2.1 Yates # (Auto) 0.5 Eos # (Auto) 0.0 Baso # (Auto) 0.0 Absolute Nucleated RBC 0.00 Nucleated RBC % 0.0 ESR Sodium 140 Potassium 3.8 Chloride 104 Carbon Dioxide 28 Anion Gap 8.0 BUN 13 Creatinine 0.8 Estimated GFR (MDRD) 74 L Glucose 97 POC Whole Bld Glucose 96 Calcium 9.4 Magnesium Total Bilirubin 0.4 AST 16 ALT 17 Alkaline Phosphatase 69 Troponin I High Sens Total Protein 7.7 Albumin 4.0 Globulin 3.7 Albumin/Globulin Ratio 1.1 Lipase 35 10/14/22 10/14/22 10/14/22 09:59 09:59 09:59 WBC RBC Hgb Hct MCV MCH MCHC RDW Plt Count MPV Neut # (Auto) Lymph # (Auto) Yates # (Auto) Eos # (Auto) Baso # (Auto) Absolute Nucleated RBC Nucleated RBC % ESR 22 Sodium Potassium Chloride Carbon Dioxide Anion Gap BUN Creatinine Estimated GFR (MDRD) Glucose POC Whole Bld Glucose Calcium Magnesium 1.9 Total Bilirubin AST ALT Alkaline Phosphatase Troponin I High Sens 3.6 Total Protein Albumin Globulin Albumin/Globulin Ratio Lipase - Rads (name of study) brain MRI Relevant Findings:: Prelim report reviewed (microvascular ischemic chronic changes diffusely. No focal infarcts nor masses. ), See rad report PD Medical Decision Making - ED course Complexity details: reviewed old records (I looked at MRI report from 2 months ago. It states chronic microvascular changes along vernticle edge, but no acute/focal abnormality. No infarcts. ), reviewed results (MRI today same as recent one. No lakshmi of infarct. no masses. no MS lesions. ), re-evaluated patient (she was less vertigo with Meclizine and after MRI. However still blurred vision and left headache. Left arm numb. Gave Reglan IV with fluids and she had considerable/near complete improvement of symptoms, most c/w her symptoms being vestibular migraine. ), considered differential, d/w patient Departure - Departure Disposition: 01 Home, Self Care Clinical Impression: Vertigo, Vestibular migraine Condition: Stable Record reviewed to determine appropriate education?: Yes Instructions: ED Headache Migraine Prescriptions: Butalb/Acetam/Caff 50/325/40 [Fioricet] 1 each PO Q6H PRN #10 tablet PRN Reason: Migraine Ondansetron Odt [Zofran] 4 mg TL Q6H PRN #10 tablet PRN Reason: Nausea / Vomiting Comments: Your MRI shows some chronic microvascular type changes which commonly are more age-related. Its similar to your prior MRI. There is no signs of acute stroke tumors or MS. Your symptoms sound more likely a vestibular migraine. It does seem to be improved with migraine type medication. For outpatient, for subsequent episodes, you could try a migraine type medication called Fioricet. You can combine with ondansetron for nausea for it. This would be intended just episodic for these types of episodes and short-term. Follow-up with your primary care and perhaps subsequently neurology for other treatment ideas or prophylactic medicines. I sent your prescriptions to [facility] pharmacy. Discharge Date/Time: 10/14/22 15:20
[2022-10-14] MEDS ORDERED: MECLIZINE 12.5 MG TABLET PO STA (10:02)
[2022-10-14 10:06] LABS: BASOPHILS % (AUTO) 0.1 %; HCT - HEMATOCRIT 40.7 % (37.0-47.0); HGB - HEMOGLOBIN 13.2 g/dL (12.0-16.0); LYMPHOCYTES # (AUTO) 2.1 10^3/uL (1.5-3.5); LYMPHOCYTES % (AUTO) 30.8 %; MEAN CORPUSCULAR HEMOGLOBIN 28.8 pg (27.0-31.0); MEAN CORPUSCULAR HGB CONC 32.4 g/dL (32.0-36.0); MEAN CORPUSCULAR VOLUME 88.7 fL (81.0-99.0); MEAN PLATELET VOLUME 8.6 fL (7.9-10.8); MONOCYTES # (AUTO) 0.5 10^3/uL (0.0-1.0); MONOCYTES % (AUTO) 6.9 %; NEUTROPHILS # (AUTO) 4.3 10^3/uL (1.5-6.6); NEUTROPHILS % (AUTO) 62.1 %; PLT - PLATELET COUNT 448 10^3/uL (130-450); RED BLOOD COUNT 4.59 10^6/uL (4.20-5.40); RED CELL DISTRIBUTION WIDTH 13.4 % (12.0-15.0)
[2022-10-14 10:26] LABS: ALBUMIN/GLOBULIN RATIO 1.1 (1.0-2.2); BILIRUBIN,TOTAL 0.4 mg/dL (0.2-1.0); CALCIUM 9.4 mg/dL (8.5-10.3); CREATININE 0.8 mg/dL (0.4-1.0); POTASSIUM 3.8 mmol/L (3.5-5.0); TOTAL PROTEIN 7.7 g/dL (6.7-8.2)
--- NOTE | 2022-10-14 13:16 | MRI Report ---
PROCEDURE: BRAIN WO INDICATIONS: vertigo/ blurred vision onset today TECHNIQUE: Noncontrast axial T1 spin echo, axial T2 fast spin echo, sagittal and axial FLAIR, coronal T2 fast sp in echo, axial gradient echo, axial diffusion and ADC through the brain. COMPARISON: 08/04/2022 FINDINGS: Image quality: Excellent. CSF Spaces: Basal cisterns are patent. No extra-axial fluid collections. Ventricles are normal in size and shape. Brain: No intracranial masses or hemorrhage. Puckett/white matter interface is normal. Mild foci of T 2-weighted hyperintensity can be seen within the white matter, as on series 14 image 17. Brainstem ap pears normal. Diffusion-weighted images demonstrate no acute ischemic insult. No chronic ischemic i nsults. Normal intravascular flow voids are present. Skull and face: Calvarium has normal marrow signal. Orbits appear normal. Sinuses: Sinuses and mastoids are clear. IMPRESSION: No findings of acute or subacute infarction are seen. Mild foci of T2-weighted hyperintensity can be seen within the white matter. These findings are suspi cious most likely related to chronic small vessel ischemic change. Reviewed by: Baltazar Cui MD on 10/14/2022 12:15 PM [facility] Approved by: Baltazar Cui MD on 10/14/2022 12:15 PM [facility] Station ID: [id number]
[2022-10-14] MEDS ORDERED: METOCLOPRAMIDE 10 MG/2 ML VIAL IVP STA (13:23)
[2022-10-14] MEDS ORDERED: SODIUM CHLORIDE 0.9% 1,000 ML IV STA (13:24)
[2022-10-14 15:06] VITALS: BP 135/94
== END 2022-10-14 15:20 | disposition home or self-care (01) ==
LOC: ED 09:21
DX: G43.809 Other migraine, not intractable, without status migrainosus (principal); R42 Dizziness and giddiness; I10 Essential (primary) hypertension; F17.200 Nicotine dependence, unspecified, uncomplicated
CPT/HCPCS: 36415; 70551; 80053; 83690; 83735; 84484; 85025; 85651; 93005; 96374; 99283; 99284; A9270; J2765

== ENCOUNTER 2023-01-15 12:55 | Outpatient (CLI) | payer OTHER, MEDICAID | END 2023-01-15 23:59 | disposition critical access hospital (66) | LOC: EMS 12:55 | DX: R11.2 Nausea with vomiting, unspecified (principal); R42 Dizziness and giddiness; R51.9 Headache, unspecified; H53.8 Other visual disturbances | CPT/HCPCS: A0425; A0427; A0999 ==

== ENCOUNTER 2023-01-15 13:09 | Emergency (ER) | payer OTHER, MEDICAID ==
[2023-01-15 13:50] LABS: BASOPHILS % (AUTO) 0.1 %; HCT - HEMATOCRIT 38.4 % (37.0-47.0); HGB - HEMOGLOBIN 12.7 g/dL (12.0-16.0); LYMPHOCYTES # (AUTO) 1.4 10^3/uL (1.5-3.5); LYMPHOCYTES % (AUTO) 17.4 %; MEAN CORPUSCULAR HEMOGLOBIN 29.9 pg (27.0-31.0); MEAN CORPUSCULAR HGB CONC 33.1 g/dL (32.0-36.0); MEAN CORPUSCULAR VOLUME 90.4 fL (81.0-99.0); MEAN PLATELET VOLUME 9.1 fL (7.9-10.8); MONOCYTES # (AUTO) 0.3 10^3/uL (0.0-1.0); MONOCYTES % (AUTO) 4.3 %; NEUTROPHILS # (AUTO) 6.2 10^3/uL (1.5-6.6); NEUTROPHILS % (AUTO) 77.9 %; PLT - PLATELET COUNT 323 10^3/uL (130-450); RED BLOOD COUNT 4.25 10^6/uL (4.20-5.40); RED CELL DISTRIBUTION WIDTH 12.6 % (12.0-15.0)
[2023-01-15] MEDS ORDERED: SODIUM CHLORIDE 0.9% 1,000 ML IV STA (13:54)
[2023-01-15 14:06] LABS: ALBUMIN 4.1 g/dL (3.2-5.5); ALBUMIN/GLOBULIN RATIO 1.5 (1.0-2.2); BILIRUBIN,TOTAL 0.2 mg/dL (0.2-1.0); CALCIUM 9.4 mg/dL (8.5-10.3); CREATININE 0.9 mg/dL (0.6-1.3); POTASSIUM 3.5 mmol/L (3.5-4.5); TOTAL PROTEIN 6.8 g/dL (6.4-8.9)
[2023-01-15 14:08] LABS: BILIRUBIN,URINE NEGATIVE (NEGATIVE); GLUCOSE, URINE (UA) NEGATIVE (NEGATIVE); KETONES,URINE (UA) NEGATIVE (NEGATIVE); LEUKOCYTE ESTERASE, URINE NEGATIVE (NEGATIVE); NITRITE,URINE NEGATIVE (NEGATIVE); OCCULT BLOOD,URINE NEGATIVE (NEGATIVE); PROTEIN,URINE NEGATIVE (NEGATIVE); UROBILINOGEN,URINE 0.2 (NORMAL) E.U./dL (NORMAL)
[2023-01-15 14:09] LABS: CLARITY,URINE CLEAR (CLEAR)
--- NOTE | 2023-01-15 14:12 | ED Physician Documentation ---
History of Present Illness - Stated complaint Stated Complaint: N/V - Chief complaint Chief Complaint: Abd Pain - Additonal information Additional information: 57-year-old female presents to the emergency department for evaluation of sudden onset vertigo, ataxia, double vision. Symptoms began at 830 this morning. Reports that she was in the shower when she began to feel suddenly off balance and dropped to the ground. States that she had to crawl to the bed and was assisted into bed and needed help dressing. States that she has a mild headache as well as some nausea. Patient tells this provider that she has had TIAs in the past. They have felt this similar to this episode however. Patient reports that she has double vision that improves when she closes 1 eye. She does have mild ataxia with her upper limbs. In review of the patient's medical record it appears that she has had 2 MRIs since June of this last year which were both negative. A previous clinicians note indicates that he felt she may have had a vestibular migraine. When I queried the patient on this possibility she admits that she has been told this before. She states that she has not yet been seen or referred to a neurologist. Past medical history most significant for hypertension, anxiety, PTSD. Meds: Lamictal, Cymbalta, as needed Xanax, metoprolol, levothyroxine, lisinopril. Review of Systems Constitutional: denies: Fever, Chills Eyes: reports: Other (binocular diplopia) Ears: reports: Reviewed and negative Throat: reports: Reviewed and negative Cardiac: reports: Reviewed and negative Respiratory: reports: Reviewed and negative GI: reports: Nausea, Vomiting : reports: Reviewed and negative Skin: reports: Reviewed and negative Musculoskeletal: reports: Reviewed and negative Neurologic: reports: Reviewed and negative PD PAST MEDICAL HISTORY - Past Medical History Cardiovascular: Hypertension Respiratory: Asthma, Other Neuro: Migraines Endocrine/Autoimmune: HyPOthyroidism GI: 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 : 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 HEENT: Macular degeneration Psych: Depression, Anxiety, Post traumatic stress disorder Musculoskeletal: Osteoarthritis, Fibromyalgia, Osteoporosis Derm: None - Past Surgical History Past Surgical History: Yes General: Cholecystectomy Ortho: Carpal Tunnel surgery /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: Hysterectomy, Oophrectomy, Mastectomy HEENT: Tonsil/Adenoidectomy - Present Medications Home Medications: Ambulatory Orders Medication Instructions Recorded Confirmed Albuterol Sulfate [Proair Hfa 2 puffs INH Q4H PRN 07/14/15 09/14/22 Inhaler] EPINEPHrine [Epinephrine] 0.3 mg IM ONCE PRN 07/14/15 09/14/22 Gabapentin 900 mg PO BID 07/14/15 05/24/22 Oxybutynin [Ditropan] 5 mg PO BID 07/14/15 05/24/22 Spironolactone 75 mg PO DAILY 01/23/19 05/24/22 lamoTRIgine [Lamictal] 200 mg PO QPM 01/23/19 09/14/22 lisinopriL [Lisinopril] 20 mg PO QPM 01/23/19 09/14/22 Prazosin HCl 2 mg PO QPM PRN 12/13/19 05/24/22 Levothyroxine [Synthroid] 100 mcg PO QDAC #15 tablet 12/20/19 05/24/22 LORazepam [Ativan] 1 mg PO TID PRN #10 tablet 06/23/20 05/24/22 Fluconazole [Diflucan] 1 tablet PO ONCE 1 Days #1 tablet 04/03/21 09/14/22 hydrOXYzine HCL [Hydroxyzine HCl] 25 mg PO Q6HR #20 tablet 11/20/21 05/24/22 Butalb/Acetam/Caff 50/325/40 1 each PO Q6H PRN #10 tablet 10/14/22 [Fioricet] Ondansetron Odt [Zofran] 4 mg TL Q6H PRN #10 tablet 10/14/22 Meclizine [Antivert] 25 mg PO Q6H #20 tablet 01/15/23 - Allergies Allergies/Adverse Reactions: Allergies Allergy/AdvReac Type Severity Reaction Status Date / Time prochlorperazine edisylate * Allergy Severe Hallucinati Verified 01/15/23 13:17 [From Compazine] ons prochlorperazine maleate * Allergy Severe Hallucinati Verified 01/15/23 13:17 [From Compazine] ons Sulfa (Sulfonamide Allergy Severe Hives Verified 01/15/23 13:17 Antibiotics) tetracycline [Tetracycline] Allergy Severe Blisters Verified 01/15/23 13:17 bee venom protein (honey bee) Allergy Anaphylaxis Verified 01/15/23 13:17 cefuroxime [From Ceftin] Allergy Unknown Verified 01/15/23 13:17 ketorolac [From Toradol] Allergy Unknown Verified 01/15/23 13:17 midazolam [From Versed] Allergy Unknown Verified 01/15/23 13:17 nortriptyline Allergy Unknown Verified 01/15/23 13:17 sumatriptan [From Imitrex] AdvReac Severe Chest Verified 01/15/23 13:17 Pain/Anxiety sumatriptan succinate * AdvReac Severe Chest Verified 01/15/23 13:17 [From Imitrex] Pain/Anxiety latex AdvReac Itching Verified 01/15/23 13:17 metoclopramide [From Reglan] AdvReac Anxiety Verified 01/15/23 13:17 - Social History Does the pt smoke?: Yes Smoking Status: Current every day smoker Does the pt drink ETOH?: Yes Does the pt have substance abuse?: Yes - Immunizations Immunizations are current?: Yes - POLST Patient has POLST: No PD ED PE EXPANDED - General General: Alert, No acute distress, Anxious - HEENT HEENT: EOMI (Extraocular movements intact. No disconjugate gaze. PERRLA. No nystagmus noted.) - Cardiac Cardiac: Regular Rate, Radial strong equal, Pedal strong equal, Cap refill < 2 sec. No: Murmur Present - Respiratory Respiratory: Clear to ausultation irwin. No: Distress, Labored - Neuro Neuro: Alert and Oriented X 3, CNII-XII intact, Normal speech. No: Normal finger nose (Positive dysmetria especially with the left arm.) - GCS Eye Opening: Spontaneous Motor: Obeys Commands Verbal: Oriented Total: 15 Results - Vitals Vitals: Vital Signs - 24 hr 01/15/23 01/15/23 01/15/23 13:17 13:20 15:20 Temperature 36.5 C 36.5 C Heart Rate 68 68 66 Respiratory 16 16 16 Rate Blood Pressure 130/90 H 130/90 H 128/88 H O2 Saturation 97 97 98 01/15/23 17:00 Temperature Heart Rate 72 Respiratory 16 Rate Blood Pressure 98/66 O2 Saturation 98 Oxygen O2 Source Room air - Labs Labs: Laboratory Tests 01/15/23 01/15/23 01/15/23 13:44 13:44 13:44 WBC 8.0 RBC 4.25 Hgb 12.7 Hct 38.4 MCV 90.4 MCH 29.9 MCHC 33.1 RDW 12.6 Plt Count 323 MPV 9.1 Neut # (Auto) 6.2 Lymph # (Auto) 1.4 L Ulster # (Auto) 0.3 Eos # (Auto) 0.0 Baso # (Auto) 0.0 Absolute Nucleated RBC 0.00 Nucleated RBC % 0.0 Sodium 136 Potassium 3.5 Chloride 104 Carbon Dioxide 27 Anion Gap 5.0 L BUN 17 Creatinine 0.9 Estimated GFR (MDRD) 64 L Glucose 160 H Calcium 9.4 Total Bilirubin 0.2 AST 13 ALT 10 Alkaline Phosphatase 61 Total Protein 6.8 Albumin 4.1 Globulin 2.7 Albumin/Globulin Ratio 1.5 Lipase 17 TSH Free T4 Direct 0.75 Urine Color Urine Clarity Urine pH Ur Specific Echo Urine Protein Urine Glucose (UA) Urine Ketones Urine Occult Blood Urine Nitrite Urine Bilirubin Urine Urobilinogen Ur Leukocyte Esterase Ur Microscopic Review Urine Culture Comments 01/15/23 01/15/23 13:44 13:54 WBC RBC Hgb Hct MCV MCH MCHC RDW Plt Count MPV Neut # (Auto) Lymph # (Auto) Ulster # (Auto) Eos # (Auto) Baso # (Auto) Absolute Nucleated RBC Nucleated RBC % Sodium Potassium Chloride Carbon Dioxide Anion Gap BUN Creatinine Estimated GFR (MDRD) Glucose Calcium Total Bilirubin AST ALT Alkaline Phosphatase Total Protein Albumin Globulin Albumin/Globulin Ratio Lipase TSH 1.34 Free T4 Direct Urine Color YELLOW Urine Clarity CLEAR Urine pH 6.0 Ur Specific Echo 1.025 Urine Protein NEGATIVE Urine Glucose (UA) NEGATIVE Urine Ketones NEGATIVE Urine Occult Blood NEGATIVE Urine Nitrite NEGATIVE Urine Bilirubin NEGATIVE Urine Urobilinogen 0.2 (NORMAL) Ur Leukocyte Esterase NEGATIVE Ur Microscopic Review NOT INDICATED Urine Culture Comments NOT INDICATED - Rads (name of study) MRI brain Relevant Findings:: Final report received (Normal MRI of the brain) PD Medical Decision Making - ED course Complexity details: reviewed old records, reviewed results, re-evaluated patient, considered differential, d/w patient ED course: 57-year-old female presents emergency department for evaluation of sudden onset vertigo, ataxia dysmetria with the left arm and binocular double vision with associated halo effect in vision. She has had at least 3 similar episodes since july 2022 which she has described as a TIA however 2 MRIs one completed in July 2022 and another in August 2022 were without evidence of acute infarction. A carotid Doppler completed in July 2022 also showed no evidence of carotid stenosis. On presentation to the ER today she does have binocular diplopia as well as dysmetria most pronounced with the left arm. No abnormality with EOMI. Though I suspect the patient has a vestibular migraine as a cause of her symptoms she states that this feels distinctly different than her previous ER visit thus we elected to proceed with an MRI of the brain. I did obtain CBC, electrolytes and a TSH. Per my interpretation no acute abnormalities as causative of her symptoms. No worrisome anemia and her electrolytes are not significantly deranged. 1800: Subsequent MRI of the brain has been negative. I did reach out to Dr. Schuster [facility] associated with [facility]. He is in agreement that with 3 negative MRIs this does not represent acute infarction or TIA. Given the dysmetria and ataxia this may very well represent a vestibular migraine. I did give the patient 25 mg of meclizine which she reports had improved her double vision and halo effect. She does continue to persist with a mild headache that did not resolve with Vicodin. Ideally we would trial other medications such as Compazine or Toradol for relief of her headaches but given her multiple medication allergies we are unable to do that today. Subsequently I followed up with the patient and her family at the bedside. She is feeling better and stable for discharge. I discussed my suspicion that the symptoms are likely a vestibular migraine and she will request referral to neurology and follow-up. She can continue her usual medications. Otherwise worrisome emergent return precautions were discussed. Departure - Departure Disposition: 01 Home, Self Care Clinical Impression: Acute severe vertigo, Binocular vision disorder with diplopia Prescriptions: Meclizine [Antivert] 25 mg PO Q6H #20 tablet Comments: As discussed at the bedside your visual changes, headache, dizziness and difficulty walking may be due to vestibular migraines. You did have an MRI completed of your brain today that did not show any evidence of infarction or stroke. Your previous 2 MRIs have been negative. We did obtain CBC and electrolytes today in the emergency department which were essentially normal. I did give you a dose of medication called meclizine which you report has improved the visual side effects. I have sent this prescription to the [facility] in [place]. You can take this 2-3 times a day for sudden episodes of dizziness. Please make sure that you stay well-hydrated. It is important you discuss this ED visit with your primary doctor as you would benefit from referral to a neurologist for further evaluation of these symptoms. Forms: PCP List
--- NOTE | 2023-01-15 16:02 | MRI Report ---
PROCEDURE: MRI brain without contrast INDICATIONS: diplopia; ataxia TECHNIQUE: Noncontrast axial T1 spin echo, axial T2 fast spin echo, sagittal and axial FLAIR, coronal T2 fast sp in echo, axial gradient echo, axial diffusion and ADC through the brain. COMPARISON: 10/14/2022 FINDINGS: Image quality: Excellent. CSF Spaces: Basal cisterns are patent. No extra-axial fluid collections. Ventricles are normal in size and shape. Brain: No intracranial masses or hemorrhage. Puckett/white matter interface is normal. Brainstem appe ars normal. Diffusion-weighted images demonstrate no acute ischemic insult. No chronic ischemic ins ults. Normal intravascular flow voids are present. Skull and face: Calvarium has normal marrow signal. Orbits appear normal. Sinuses: Sinuses and mastoids are clear. IMPRESSION: Normal MRI of the brain Reviewed by: Yoshi Howell MD on 01/15/2023 3:00 PM [facility] Approved by: Yoshi Howell MD on 01/15/2023 3:00 PM [facility] Station ID: [id number]
[2023-01-15] MEDS ORDERED: HYDROcod/ACETAM 5/325 MG TABLET PO STA (16:16)
[2023-01-15] MEDS ORDERED: MECLIZINE 12.5 MG TABLET PO STA (16:41)
[2023-01-15 18:01] VITALS: BP 98/66
== END 2023-01-15 18:30 | disposition home or self-care (01) ==
LOC: ED 13:09
DX: H53.2 Diplopia (principal); R42 Dizziness and giddiness; I10 Essential (primary) hypertension; F17.200 Nicotine dependence, unspecified, uncomplicated
CPT/HCPCS: 36415; 70551; 80053; 81003; 83690; 84439; 84443; 85025; 99284; A9270; 81001; 87086

== ENCOUNTER 2023-09-01 13:07 | Emergency (ER) | payer OTHER, MEDICAID ==
--- NOTE | 2023-09-01 14:50 | ED Physician Documentation ---
PD HPI SKIN - Stated complaint Stated Complaint: LT WRIST INJ,DOG BITE - Chief complaint Chief Complaint: Wound - Additional information Additional information: 57-year-old female presents emergency department for left wrist pain. Patient said that her dogs got in a fight she went to grab the back of one of her dogs in each room and bit her wrist. She has no pain with flexion and no pain with palpation but states that there was a period of time where she was worried about a possible arterial bleed that has now fully resolved. There is some bruising to her wrist and she said that she is not up-to-date with her tetanus shot and mostly said that she is here because she would like a work note to be excused from work for the next couple days because of her sore left wrist. 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: Breast cancer : None HEENT: Macular degeneration Psych: Depression, Anxiety, Post traumatic stress disorder Musculoskeletal: Osteoarthritis, Fibromyalgia, Osteoporosis Derm: None - Past Surgical History Past Surgical History: Yes General: Cholecystectomy Ortho: Carpal Tunnel surgery /RESEARCH ADVISOR: Hysterectomy, Oophrectomy, Mastectomy HEENT: Tonsil/Adenoidectomy - Present Medications Home Medications: Ambulatory Orders Medication Instructions Recorded Confirmed Albuterol Sulfate [Proair Hfa 2 puffs INH Q4H PRN 07/14/15 09/14/22 Inhaler] EPINEPHrine [Epinephrine] 0.3 mg IM ONCE PRN 07/14/15 09/14/22 Gabapentin 900 mg PO BID 07/14/15 05/24/22 Oxybutynin [Ditropan] 5 mg PO BID 07/14/15 05/24/22 Spironolactone 75 mg PO DAILY 01/23/19 05/24/22 lamoTRIgine [Lamictal] 200 mg PO QPM 01/23/19 09/14/22 lisinopriL [Lisinopril] 20 mg PO QPM 01/23/19 09/14/22 Prazosin HCl 2 mg PO QPM PRN 12/13/19 05/24/22 Levothyroxine [Synthroid] 100 mcg PO QDAC #15 tablet 12/20/19 05/24/22 LORazepam [Ativan] 1 mg PO TID PRN #10 tablet 06/23/20 05/24/22 Fluconazole [Diflucan] 1 tablet PO ONCE 1 Days #1 tablet 04/03/21 09/14/22 hydrOXYzine HCL [Hydroxyzine HCl] 25 mg PO Q6HR #20 tablet 11/20/21 05/24/22 Butalb/Acetam/Caff 50/325/40 1 each PO Q6H PRN #10 tablet 10/14/22 [Fioricet] Ondansetron Odt [Zofran] 4 mg TL Q6H PRN #10 tablet 10/14/22 Meclizine [Antivert] 25 mg PO Q6H #20 tablet 01/15/23 - Allergies Allergies/Adverse Reactions: Allergies Allergy/AdvReac Type Severity Reaction Status Date / Time prochlorperazine edisylate * Allergy Severe Hallucinati Verified 09/01/23 13:16 [From Compazine] ons prochlorperazine maleate * Allergy Severe Hallucinati Verified 09/01/23 13:16 [From Compazine] ons Sulfa (Sulfonamide Allergy Severe Hives Verified 09/01/23 13:16 Antibiotics) tetracycline [Tetracycline] Allergy Severe Blisters Verified 09/01/23 13:16 bee venom protein (honey bee) Allergy Anaphylaxis Verified 09/01/23 13:16 cefuroxime [From Ceftin] Allergy Unknown Verified 09/01/23 13:16 ketorolac [From Toradol] Allergy Unknown Verified 09/01/23 13:16 midazolam [From Versed] Allergy Unknown Verified 09/01/23 13:16 nortriptyline Allergy Unknown Verified 09/01/23 13:16 sumatriptan [From Imitrex] AdvReac Severe Chest Verified 09/01/23 13:16 Pain/Anxiety sumatriptan succinate * AdvReac Severe Chest Verified 09/01/23 13:16 [From Imitrex] Pain/Anxiety latex AdvReac Itching Verified 09/01/23 13:16 metoclopramide [From Reglan] AdvReac Anxiety Verified 09/01/23 13:16 - Social History Does the pt smoke?: No Smoking Status: Never smoker Does the pt drink ETOH?: No Does the pt have substance abuse?: Yes Substance Use and Type: Marijuana - Immunizations Immunizations are current?: Yes - POLST Patient has POLST: No PD ED PE NORMAL - Vitals Vital signs reviewed: Yes - General General: Alert and oriented X 3, No acute distress, Well developed/nourished - Free text exam Free text exam: Left lower extremity: Full range of motion with flexion extension to the elbow and wrist. Bruising with superficial puncture wound noted to the radial aspect about 1 inch superior to the wrist. No tenderness with flexion or extension mild tenderness to the radial aspect of the radius. Strong radial pulses. Superficial scratch payne and superficial puncture wounds to the left forearm. Results - Vitals Vitals: Vital Signs - 24 hr 09/01/23 09/01/23 13:11 15:30 Temperature 36.4 C L Heart Rate 82 63 Respiratory 16 18 Rate Blood Pressure 168/94 H 126/66 O2 Saturation 100 98 Oxygen O2 Source Room air PD Medical Decision Making - ED course ED course: 57-year-old female presents emergency department for left wrist pain after her dog bit it. She has full range of motion to the left wrist no wrist tenderness with palpation. She has very mild tenderness to the radial aspect of her forearm I do not believe imaging is warranted but she was offered an x-ray and she said that she does not feel like this is warranted at this time mainly just wanted to come in for a work note. Work note was given to have 2 days off she was given Tylenol ibuprofen wounds were thoroughly washed and irrigated with water and soap. Bacitracin and Band-Aid was applied over the wounds patient was given a tetanus shot to update her tetanus all questions answered and return precautions given. Departure - Departure Disposition: 01 Home, Self Care Clinical Impression: Dog bite of left arm Qualifiers: Encounter type: initial encounter Qualified Code(s): S41.152A - Open bite of left upper arm, initial encounter Arm contusion Qualifiers: Encounter type: initial encounter Laterality: left Qualified Code(s): S40.022A - Contusion of left upper arm, initial encounter Instructions: Bites Scratches Animal Comments: Thank you for trusting us with your care. It does not like maybe you have a slight arterial knick from your dog bite. Keep in mind you will be sore over the next 2 to 3 days but alternate between 650 mg of Tylenol and 600 mg of ibuprofen every 6 hours. You can take them both together or you can alternate it is up to your preference. Keep the area elevated above your heart when you are at rest or sleeping, 20 minutes of ice to help with any inflammation and swelling 1 hour off and continue that frequently throughout the day make sure that you are still bending your wrist frequently please come back to the emergency department if you are starting to notice any signs symptoms of infection which include redness, swelling, drainage that looks yellow or green, or any other concerning symptoms. He can apply bacitracin [id number] antibiotic ointment over the wounds and keep them covered with a Band-Aid to help with recovery. Forms: PCP List, Activity restrictions Discharge Date/Time: 09/01/23 15:30
[2023-09-01] MEDS: ACETAMINOPHEN 325 MG TABLET PO STA (15:06)
[2023-09-01] MEDS: IBUPROFEN 600 MG TABLET PO STA (15:06)
[2023-09-01] MEDS: TETANUS/DIPHTHERIA/PERTUSSIS 0.5 ML SYRINGE IM ONE (15:06)
[2023-09-01 15:33] VITALS: BP 126/66; O2SAT 98
== END 2023-09-01 15:30 | disposition home or self-care (01) ==
LOC: ED 13:07
DX: S61.552A Open bite of left wrist, initial encounter (principal); S40.022A Contusion of left upper arm, initial encounter; W54.0XXA Bitten by dog, initial encounter; I10 Essential (primary) hypertension; E03.9 Hypothyroidism, unspecified; Z79.899 Other long term (current) drug therapy; Z23 Encounter for immunization
CPT/HCPCS: 90471; 90715; 99283; A9270

== ENCOUNTER 2023-11-16 08:00 | Outpatient (CLI) | payer OTHER, MEDICAID ==
[2023-11-16 17:55] LABS: BILIRUBIN,URINE NEGATIVE (NEGATIVE); GLUCOSE, URINE (UA) NEGATIVE (NEGATIVE); KETONES,URINE (UA) NEGATIVE (NEGATIVE); LEUKOCYTE ESTERASE, URINE NEGATIVE (NEGATIVE); NITRITE,URINE NEGATIVE (NEGATIVE); OCCULT BLOOD,URINE NEGATIVE (NEGATIVE); PROTEIN,URINE NEGATIVE (NEGATIVE); UROBILINOGEN,URINE 0.2 (NORMAL) E.U./dL (NORMAL)
[2023-11-16 17:56] LABS: CLARITY,URINE CLEAR (CLEAR)
[2023-11-16 18:07] LABS: BACTERIA,URINE None Seen /HPF (None Seen); RBC,URINE None Seen /HPF (0-5); SQUAMOUS EPITHELIAL CELL,UR NONE SEEN (<= Few); WBC,URINE 0-3 /HPF (0-5)
== END 2023-11-16 23:59 | disposition home or self-care (01) ==
LOC: LAB.N 08:00
PROVIDERS: ATTEND Physician Assistant
DX: R35.0 Frequency of micturition (principal)
CPT/HCPCS: 81001; 87086